=== PATIENT | female | born 1930 | race Caucasian/White ===

== ENCOUNTER 2016-10-09 10:07 | Emergency (ER) | payer MEDICARE ==
[~2016-10-09] VITALS: Ht 162.5 cm; Wt 74.8 kg
[~2016-10-09 10:07] MED LIST: ATENOLOL100 M1 PO; BP MED PO; CHOLESTEROL MED PO; CIPROFLOXACIN500 MG PO; DOESN'T KNOW NAMES PO; EC NAPROSYN500 MG PO; HYDROCODONE-IB1 EACH PO; LEVOTHYROXINE0.05 MG PO; LISINOPRIL HCTZ1 TAB PO; LOVASTATIN20 MG PO; MEDROL DOSEPAK4 MG PO; NAPROSYN500 MG PO; PERCOCET 325 MG1 TA2 PO; PRINIVIL20 M1 PO; PYRIDIUM200 MG PO; ULTRAM50 MG PO; XANAX0.5 MG PO; ZOFRAN ODT4 MG SL
[2016-10-09 10:21] VITALS: BP 160/73
== END 2016-10-09 14:09 | disposition home or self-care (01) ==
LOC: ED 10:07
DX: M25.552 Pain in left hip (principal); I10 Essential (primary) hypertension; G89.29 Other chronic pain; M48.00 Spinal stenosis, site unspecified; Z90.710 Acquired absence of both cervix and uterus; Z98.890 Other specified postprocedural states; Z79.899 Other long term (current) drug therapy; W19.XXXA Unspecified fall, initial encounter; Y93.89 Activity, other specified; Y92.89 Other specified places as the place of occurrence of the external cause; Y99.9 Unspecified external cause status

== ENCOUNTER 2017-07-25 11:44 | Emergency (ER) | payer MEDICARE ==
[~2017-07-25] VITALS: Ht 152.4 cm; Wt 76.2 kg
[2017-07-25 12:04] LABS: BASO # 0.1 10*3/uL (0.0-0.1); BASO % 0.6 % (0.0-1.0); EOS # 0.4 10*3/uL (0.0-0.4); EOS % 4.1 % (1.0-4.0); HEMATOCRIT 41.8 % (37.0-47.0); HEMOGLOBIN 14.2 g/dl (12.0-16.0); LYMPH # 4.1 10*3/uL (1.3-4.4); LYMPH % 48.2 % (27.0-41.0); MEAN CELL VOLUME 96.1 fl (81.0-99.0); MEAN CORPUSCULAR HGB 32.6 pg (27.0-31.0); MONO # 0.7 10*3/uL (0.1-1.0); MONO % 7.9 % (3.0-9.0); NEUT # 3.3 10*3/uL (2.3-7.9); PLATELET COUNT AUTOMATED 180 10*3/uL (130-400); RED BLOOD COUNT 4.35 10*6/uL (4.10-5.10); RED CELL DISTRI WIDTH 13.2 % (0-14.5); WHITE BLOOD COUNT 8.5 10*3/uL (4.8-10.8)
[2017-07-25 12:15] LABS: BUN 25 mg/dl (7-24); CHLORIDE 105 mmol/L (98-107); CREATININE 0.92 mg/dL (0.55-1.02); POTASSIUM 3.6 mmol/L (3.5-5.1); SODIUM 141 mmol/L (136-145)
[2017-07-25 12:19] LABS: ACT PARTIAL THROMBO TIME 23.8 SECONDS (20.8-31.5)
[2017-07-25 12:30] LABS: BILIRUBIN NEGATIVE (NEGATIVE); BLOOD 3+ (NEGATIVE); CLARITY CLOUDY (CLEAR); COLOR RED (YELLOW); GLUCOSE NEGATIVE (NEGATIVE); KETONE 1+ (NEGATIVE); NITRITE POSITIVE (NEGATIVE); PH 6.5 (5.0-9.0)
[2017-07-25 12:34] LABS: LEUKO ESTERASE 1+ (NEGATIVE)
[2017-07-25 12:42] LABS: BACTERIA 1+; RBC TNTC rbc/hpf (0-2); WBC 31-40 wbc/hpf (0-5)
[2017-07-25 13:34] VITALS: BP 146/86
== END 2017-07-25 13:33 | disposition home or self-care (01) ==
LOC: ED 11:44
PROVIDERS: Emergency Medicine
DX: R31.0 Gross hematuria (principal); G89.29 Other chronic pain; Z79.899 Other long term (current) drug therapy

== ENCOUNTER → 2017-09-14 | Outpatient (CLI) | payer MEDICARE ==
[2017-09-14 11:20] LABS: BILIRUBIN NEGATIVE (NEGATIVE); BLOOD 3+ (NEGATIVE); CLARITY SL CLOUDY (CLEAR); COLOR YELLOW (YELLOW); GLUCOSE NEGATIVE (NEGATIVE); KETONE NEGATIVE (NEGATIVE); LEUKO ESTERASE 3+ (NEGATIVE); NITRITE POSITIVE (NEGATIVE); PH 6.5 (5.0-9.0); UROBILINOGEN 0.2 E.U./dl (0.2-1.0)
[2017-09-14 11:28] LABS: BACTERIA 2+; RBC TNTC rbc/hpf (0-2); WBC TNTC wbc/hpf (0-5)
== END | disposition home or self-care (01) ==
LOC: LAB 10:35
PROVIDERS: Urology
DX: N39.0 Urinary tract infection, site not specified (principal)

== ENCOUNTER → 2017-09-28 | Outpatient (CLI) | payer MEDICARE | END | disposition home or self-care (01) | LOC: LAB 12:51 | DX: N39.0 Urinary tract infection, site not specified (principal) ==

== ENCOUNTER 2018-03-26 16:26 | Inpatient (IN) | payer MEDICARE ==
[~2018-03-26] VITALS: Ht 162.5 cm; Wt 73.1 kg
--- NOTE | ~2018-03-26 | DS ---
[place], [place] DISCHARGE SUMMARY NAME: NEIL TUTTLE UNIT #: [id number] ROOM: 508 DOCTOR: MINISTERIO CHRISTY MD BIRTHDATE: [birth year] DOS: 03/29/2018 DIAGNOSES: 1. Dizziness with a fall. 2. Abdominal pain with dysuria. Urine culture and blood cultures were negative. 3. Bladder cancer, on chemo. 4. Benign hypertension, poorly controlled. 5. Hyponatremia, possibly diuretic induced. 6. Spinal stenosis with radiculopathy. 7. Gastroesophageal reflux disease. 8. Mixed hyperlipidemia. DISCHARGE MEDICATIONS: Atenolol 100 mg daily, lisinopril 40 daily, Ceftin 250 twice daily for 5 days, hydroxyzine 25 t.i.d., lovastatin 20 daily, levothyroxine 50 mcg daily, aspirin 81 daily. HOSPITAL COURSE: The patient is 87-year-old. She was walking across a parking lot to her apartment when she became dizzy and just fell down. She had a hard time going back into her room, but she also started complaining of severe abdominal pain and dysuria and was brought to the Emergency Room. After being brought to the Emergency Room, she had a CT of the head which was unremarkable, except for small vessel disease of the brain. The patient had a urinalysis, which was refluxed for culture. Troponin was done, which was all negative. The patient had a consultation with Dr. Copeland and he advised changes in antihypertensives. Echocardiogram was ordered, showed normal LV function. She was hyponatremic and slow IV hydration was given. This was most likely from the diuretics that she was on, also on IV antibiotics for possible UTI. Blood cultures and urine cultures have come back negative. CT of the abdomen and pelvis also shows no evidence of any abnormality, so the plan therefore is to discharge her to home today. DISCHARGE MEDICATIONS: Will be as above. The possibility is that the atenolol may have made her bradycardic and so the dosage has been cut back and hydrochlorothiazide has been discontinued because of the hyponatremia. [place], [place] DISCHARGE SUMMARY NAME: NEIL TUTTLE UNIT #: [id number] ROOM: 508 DOCTOR: MINISTERIO CHRISTY MD BIRTHDATE: [birth year] MINISTERIO CHRISTY MD CM:YOEL [id number] MINISTERIO CHRISTY MD 03/29/18 1144 interface
--- NOTE | ~2018-03-26 | PR ---
[place], [place] PROGRESS NOTE NAME: NEIL TUTTLE [facility] #: [id number] UNIT #: [id number] ROOM: 508 DOCTOR: MINISTERIO CHRISTY MD BIRTHDATE: [birth year] DOS: SUBJECTIVE: The patient is doing fine without any complaints today. Abdominal pain is completely resolved. OBJECTIVE: VITAL SIGNS: Blood pressure is 149/51, pulse is 64, respirations 21, temperature 97.9. LUNGS: Clear. HEART: Regular. ABDOMEN: Soft, nontender. EXTREMITIES: Without any edema. Urine culture was negative. CT of the abdomen and pelvis was also negative. Blood cultures also showed no bacterial growth. ASSESSMENT AND PLAN: 1. The patient admitted with dizziness and a fall at home. This most likely was bradycardia from atenolol. The dosage has been cut down. 2. Hyponatremia, possibly from hydrochlorothiazide, which has been discontinued. Echocardiogram showed normal LV function. Dr. Copeland saw the patient and advised adjustment in antihypertensives. 3. Abdominal pain with dysuria. Urine culture was negative. CT scan of the abdomen was negative. Plan is to discharge her to home today. MINISTERIO CHRISTY MD CM:PNTRANS [phone] MINISTERIO CHRISTY MD 03/30/18 0333 interface
--- NOTE | ~2018-03-26 | EKG ---
[place], [place] ELECTROCARDIOGRAM REPORT NAME: NEIL TUTTLE UNIT #: [id number] ROOM: 508 DOCTOR: CHAVO DRAFT REPORT BIRTHDATE: [birth year] [facility] Test Date: 2018-03-26 Test Time: 17:22:20 Pat Name: NEIL TUTTLE Department: Room: 508 Gender: F Hearing Aid Repairer: Birgit Montano : 1930 Requested By: JASWANT BREWER Order Number: [id number] Reading MD: Chauncey Copeland MD Measurements Intervals [place] Rate: 59 P: 32 NE: 174 QRS: -10 QRSD: 102 T: 82 QT: 450 QTc: 446 Interpretive Statements Sinus rhythm LVH with secondary repolarization abnormality Inferior infarct, old Anterior Q waves, possibly due to LVH Electronically Signed On 03-27-2018 7:49:39 PST by Chauncey Copeland MD CM:EKGRPT:ELECTROCARDIOGRAM REPORT [id number] JASWANT TONY DRAFT REPORT JASWANT VAZQUEZ
--- NOTE | ~2018-03-26 | WRIGHTHP ---
[place], [place] PATIENT HISTORY AND PHYSICAL EXAM NAME: NEIL TUTTLE UNIT #: [id number] ROOM: 508 DOCTOR: MINISTERIO CHRISTY MD BIRTHDATE: [birth year] DOS: HISTORY OF PRESENT ILLNESS: The patient is very well known to us. She has underlying bladder cancer and she has been getting treated with BCG instillations. The patient complains of increasing pain in her suprapubic area with increasing dysuria and has been going on for more than a week and she has not received treatment recently, she decided to come into the Emergency Room after she had a fall. She says that she was so weak she just fell on the floor, did not become dizzy and lightheaded. Denied having any chest pains or palpitations. After being evaluated in the ER she was admitted. PAST MEDICAL HISTORY: Significant for 1. Chronic low back pain from spinal stenosis with radiculopathy. 2. Benign hypertension. 3. CA of the bladder. 4. Gastroesophageal reflux disease. 5. Mixed hyperlipidemia. MEDICATIONS: That she is currently on are aspirin 81 mg daily, atenolol 100 mg twice a day, hydroxyzine 25 t.i.d., levothyroxine 50 mcg daily, lisinopril/hydrochlorothiazide 1 tablet daily, lovastatin 20 daily, potassium 10 daily. SOCIAL HISTORY: Nonsmoker, does not use any alcohol. Lives at home alone. PHYSICAL EXAMINATION: GENERAL: She is awake and alert and oriented. VITAL SIGNS: Graphic trend shows a pressure of 132/70, pulse of 76, respirations 16. LUNGS: Diminished breath sounds. No wheezes, rales or rhonchi heard. HEART: Regular. ABDOMEN: Obese, soft, severe tenderness noted in the suprapubic area. EXTREMITIES: Without any edema. ASSESSMENT AND PLAN: 1. The patient who presents with abdominal pain, dysuria, most likely underlying UTI. The patient is placed on IV antibiotics and IV fluids. 2. Bladder cancer, on chemotherapy. She is currently on hold because of her symptoms. 3. Recent fall with no major injuries. The patient is ordered PT, OT consultation. [place], [place] PATIENT HISTORY AND PHYSICAL EXAM NAME: NEIL TUTTLE ACC #: [id number] UNIT #: [id number] ROOM: 508 DOCTOR: MINISTERIO CHRISTY MD BIRTHDATE: [birth year] MINISTERIO CHRISTY MD CM:HISPHYS:PATIENT HISTORY AND PHYSICAL EXAMINATION 8 MINISTERIO CHRISTY MD 03/27/18918 interface
--- NOTE | ~2018-03-26 | PR ---
[place], [place] PROGRESS NOTE NAME: NEIL TUTTLE UNIT #: [id number] ROOM: 508 DOCTOR: MINISTERIO CHRISTY MD BIRTHDATE: [birth year] DOS: 03/28/2018 SUBJECTIVE: The patient is about the same, does not have any new complaints. OBJECTIVE: VITAL SIGNS: Graphic trend shows pressure 159/67, pulse of 60, respirations 20, temperature 98.1. LUNGS: Clear. HEART: Regular. ABDOMEN: Obese, soft. EXTREMITIES: Without any edema. LABORATORY DATA: Blood culture shows no bacterial growth. Urine culture shows no bacterial growth. ASSESSMENT AND PLAN: 1. The patient presents with abdominal pain. A CT of the abdomen and pelvis will be ordered today. Urine culture and blood cultures are negative. 2. Fall with adult failure to thrive, most likely from bradycardia from antihypertensives. Medication adjustments have been made. 3. Hyponatremia. The patient is receiving IV fluids. Hydrochlorothiazide will be discontinued. MINISTERIO CHRISTY MD CM:PNTRANS [id number] MINISTERIO CHRISTY MD 03/28/18 1057 interface
--- NOTE | ~2018-03-26 | CON ---
[place], [place] REPORT OF CONSULTATION NAME: NEIL TUTTLE UNIT #: [id number] ROOM: 508 DOCTOR: CARLYN COOK MD BIRTHDATE: [birth year] DOS: 03/27/2018 CONSULTATION HISTORY OF PRESENT ILLNESS: The patient was consulted because of dizziness and she come in and the patient suddenly when she stood up, she felt fatigue and she fell, patient probably was orthostatic, hence we were consulted. No cardiac dysrhythmia noticed in the monitor. She denies any chest discomfort and denies any history of coronary artery disease. Hemodynamically, she is much more stable. She is not orthostatic at this point. PAST MEDICAL HISTORY: Significant for hypertension, carcinoma of the bladder, mixed hyperlipidemia. HOME MEDICATIONS: Aspirin, atenolol 100 mg twice a day, hydroxyzine, levothyroxine, lovastatin, lisinopril, and hydrochlorothiazide. REVIEW OF SYSTEMS: Complains of dizziness. CARDIOVASCULAR: No chest pain. GASTROINTESTINAL: No nausea, no vomiting. GENITOURINARY: No dysuria. NEUROLOGIC: She appears to be stable. GENERAL: She is alert, oriented x 3. VITAL SIGNS: Blood pressure is 130/70. LUNGS: Diminished air entry. HEART: Sounds are regular. ABDOMEN: Soft, nontender. NEUROLOGICAL: Stable. IMPRESSION: The patient had abdominal pain and dysuria being treated for UTI, also on antibiotic, history of bladder cancer, recent fall. PT, OT has been consulted. EKG shows sinus rhythm, left ventricular hypertrophy with old inferior infarct. RECOMMENDATIONS: The patient with a near syncopal episode, hypertension. The patient is on large doses of antihypertensives, very large dose of beta blockers. Her hemoglobin and hematocrit are within normal limits. Creatinine is 1.1, probably decrease the dosage to half to the beta blockers. Monitor orthostatic blood pressure. We will review the echocardiogram and we will follow up. [place], [place] REPORT OF CONSULTATION NAME: NEIL TUTTLE UNIT #: [id number] ROOM: 508 DOCTOR: CARLYN COOK MD BIRTHDATE: [birth year] CARLYN COOK MD CM:CONSTR:REPORT OF CONSULTATION 0705 03/28/18 0853 interface
[2018-03-26 16:36] VITALS: BP 170/51
[2018-03-26] MEDS ORDERED: VISTARIL25 M2 PO (16:42)
[2018-03-26 17:37] LABS: BASO % 0.5 % (0.0-1.0); EOS # 0.1 10*3/uL (0.0-0.4); EOS % 1.8 % (1.0-4.0); HEMATOCRIT 37.9 % (37.0-47.0); HEMOGLOBIN 13.1 g/dl (12.0-16.0); LYMPH # 3.1 10*3/uL (1.3-4.4); LYMPH % 40.6 % (27.0-41.0); MEAN CELL VOLUME 95.9 fl (81.0-99.0); MEAN CORPUSCULAR HGB 33.2 pg (27.0-31.0); MEAN CORPUSCULAR HGB CONC 34.6 g/dl (33.0-37.0); MEAN PLATELET VOLUME 10.1 fl (9.6-12.3); MONO # 0.5 10*3/uL (0.1-1.0); MONO % 6.3 % (3.0-9.0); NEUT # 3.9 10*3/uL (2.3-7.9); NEUT % 50.5 % (47.0-73.0); PLATELET COUNT AUTOMATED 172 10*3/uL (130-400); RED BLOOD COUNT 3.95 10*6/uL (4.10-5.10); WHITE BLOOD COUNT 7.7 10*3/uL (4.8-10.8)
[2018-03-26 17:46] LABS: ACT PARTIAL THROMBO TIME 25.3 SECONDS (20.8-31.5)
[2018-03-26 17:54] LABS: ALBUMIN 3.5 gm/dl (3.1-4.5); ALKALINE PHOSPHATASE 76 U/L (45-117); BUN 19 mg/dl (7-24); CHLORIDE 99 mmol/L (98-107); CREATININE 1.38 mg/dL (0.55-1.02); LIPASE 184 U/L (73-393); POTASSIUM 4.1 mmol/L (3.5-5.1); SGOT/AST 25 IU/L (3-35); SGPT/ALT 22 U/L (12-78); SODIUM 130 mmol/L (136-145); TOTAL PROTEIN 6.4 gm/dL (6.4-8.2)
[2018-03-26 17:57] LABS: TROPONIN I < 0.015 ng/ml (<0.045)
[2018-03-26 19:22] LABS: BILIRUBIN NEGATIVE (NEGATIVE); BLOOD 1+ (NEGATIVE); CLARITY SL CLOUDY (CLEAR); COLOR YELLOW (YELLOW); GLUCOSE TRACE (NEGATIVE); KETONE NEGATIVE (NEGATIVE); LEUKO ESTERASE 1+ (NEGATIVE); NITRITE POSITIVE (NEGATIVE); SPECIFIC GRAVITY >= 1.030 (1.005-1.030)
[2018-03-26 19:33] LABS: BACTERIA 1+; EPITHELIAL CELLS TNTC; WBC TNTC wbc/hpf (0-5)
[2018-03-26 19:37] VITALS: BP 178/73
[2018-03-26 21:00] VITALS: BP 146/71
[2018-03-26] MEDS ORDERED: POTASSIUM CHLO10 ME5 PO (21:42)
[2018-03-26] MEDS ORDERED: LOVASTATIN20 MG PO (21:45)
[2018-03-26] MEDS ORDERED: LEVOTHYROXINE50 MCG PO (21:45)
[2018-03-26] MEDS ORDERED: ASPIRIN ADULT L81 M2 PO (21:47)
[2018-03-27 00:25] VITALS: BP 148/70
[2018-03-27 03:58] LABS: BASO % 0.5 % (0.0-1.0); EOS # 0.2 10*3/uL (0.0-0.4); EOS % 2.9 % (1.0-4.0); HEMATOCRIT 37.1 % (37.0-47.0); HEMOGLOBIN 12.8 g/dl (12.0-16.0); LYMPH # 3.4 10*3/uL (1.3-4.4); LYMPH % 42.5 % (27.0-41.0); MEAN CELL VOLUME 95.4 fl (81.0-99.0); MEAN CORPUSCULAR HGB 32.9 pg (27.0-31.0); MEAN CORPUSCULAR HGB CONC 34.5 g/dl (33.0-37.0); MEAN PLATELET VOLUME 9.9 fl (9.6-12.3); MONO # 0.6 10*3/uL (0.1-1.0); MONO % 6.9 % (3.0-9.0); NEUT # 3.7 10*3/uL (2.3-7.9); NEUT % 46.9 % (47.0-73.0); PLATELET COUNT AUTOMATED 149 10*3/uL (130-400); RED BLOOD COUNT 3.89 10*6/uL (4.10-5.10)
[2018-03-27 04:13] LABS: ALBUMIN 3.3 gm/dl (3.1-4.5); CREATININE 1.12 mg/dL (0.55-1.02); POTASSIUM 3.9 mmol/L (3.5-5.1); TOTAL PROTEIN 6.3 gm/dL (6.4-8.2)
[2018-03-27 08:00] VITALS: BP 164/70
[2018-03-27 12:00] VITALS: BP 90/66
[2018-03-27 16:00] VITALS: BP 113/54
[2018-03-27 20:00] VITALS: BP 111/51
[2018-03-28] VITALS: BP 159/67
[2018-03-28 08:00] VITALS: BP 130/80
[2018-03-28 12:00] VITALS: BP 149/76
[2018-03-28 16:00] VITALS: BP 126/60
[2018-03-28 20:00] VITALS: BP 145/72
[2018-03-29] VITALS: BP 149/51
[2018-03-29 08:00] VITALS: BP 132/82; BP 158/87
[2018-03-29] MEDS ORDERED: CEFUROXIME AXE250 MG PO (08:52)
[2018-03-29] MEDS ORDERED: ATENOLOL50 M1 PO (08:52)
[2018-03-29] MEDS ORDERED: LISINOPRIL20 MG PO (08:52)
== END 2018-03-29 11:11 | disposition home or self-care (01) | DRG 690 ==
LOC: ED 16:26 → 5E 19:54 → EDHOLD 19:54 → 5E 20:10
PROVIDERS: Internal Medicine; Physician Assistant
DX: N30.01 Acute cystitis with hematuria (principal); E87.1 Hypo-osmolality and hyponatremia; C67.9 Malignant neoplasm of bladder, unspecified; M48.00 Spinal stenosis, site unspecified; K21.9 Gastro-esophageal reflux disease without esophagitis; M54.10 Radiculopathy, site unspecified; E78.2 Mixed hyperlipidemia; R42 Dizziness and giddiness; R62.7 Adult failure to thrive; I11.9 Hypertensive heart disease without heart failure; F41.9 Anxiety disorder, unspecified; T50.2X5A Adverse effect of carbonic-anhydrase inhibitors, benzothiadiazides and other diuretics, initial encounter; Y92.89 Other specified places as the place of occurrence of the external cause; Z92.21 Personal history of antineoplastic chemotherapy; Z82.3 Family history of stroke; Z82.49 Family history of ischemic heart disease and other diseases of the circulatory system; Z90.710 Acquired absence of both cervix and uterus

== ENCOUNTER 2018-04-11 13:29 | Inpatient (IN) | payer MEDICARE ==
[~2018-04-11] VITALS: Ht 162.5 cm; Wt 73.9 kg
--- NOTE | ~2018-04-11 | PR ---
[place], [place] PROGRESS NOTE NAME: NEIL TUTTLE [facility] #: [id number] UNIT #: [id number] ROOM: 422 DOCTOR: MINISTERIO CHRISTY MD BIRTHDATE: [birth year] DOS: SUBJECTIVE: The patient is feeling good, does not have any new complaints. She does not have any shortness of breath. PHYSICAL EXAMINATION: VITAL SIGNS: Pressure is 122/58, pulse of 90, respirations 18, temperature 97.8. LUNGS: Clear. HEART: Irregular. ABDOMEN: Obese, soft. EXTREMITIES: Without any edema. LABORATORY DATA: Urine culture, no bacterial growth. Chest x-ray continues to show some mild CHF. ASSESSMENT AND PLAN: 1. Acute diastolic congestive heart failure. Improvement with diuretics. The patient will have an exercise oximetry this morning. 2. Benign hypertension, controlled. 3. Atrial fibrillation, on long-term use of anticoagulants, rate is controlled. MINISTERIO CHRISTY MD CM:PNTRANS 0 [phone] MINISTERIO CHRISTY MD 04/14/18 1722 interface
--- NOTE | ~2018-04-11 | EKG ---
[place], [place] ELECTROCARDIOGRAM REPORT NAME: NEIL TUTTLE UNIT #: [id number] ROOM: 422 DOCTOR: EPIPHANY DRAFT REPORT BIRTHDATE: [birth year] [facility] Test Date: 2018-04-11 Test Time: 23:46:34 Pat Name: NEIL TUTTLE Department: Room: 422 1 Gender: F Field Servicer: Madie Kwok : 1930 Requested By: MINISTERIO CHRISTY Order Number: [id number] Reading MD: Sharda De MD Measurements Intervals [place] Rate: 96 P: [place]: QRS: -9 QRSD: 93 T: -5 QT: 424 QTc: 536 Interpretive Statements Atrial fibrillation Inferior infarct, old Anterolateral infarct, age indeterminate Prolonged QT interval Compared to ECG 03/26/2018 17:22:20 Prolonged QT interval now present Sinus rhythm no longer present Myocardial infarct finding still present Electronically Signed On 04-12-2018 7:35:28 PST by Sharda De MD CM:EKGRPT:ELECTROCARDIOGRAM REPORT [id number] MINISTERIO CHRISTY MD EPIPHANY DRAFT REPORT MINISTERIO CHRISTY MD
--- NOTE | ~2018-04-11 | PR ---
[place], [place] PROGRESS NOTE NAME: NEIL TUTTLE [facility] #: [id number] UNIT #: [id number] ROOM: 422 DOCTOR: MINISTERIO CHRISTY MD BIRTHDATE: [birth year] DOS: SUBJECTIVE: The patient is feeling good, does not have any complaints at all. OBJECTIVE: VITAL SIGNS: Blood pressure is 103/59, pulse of 78, respirations 18, temperature 97.8. LUNGS: Diminished breath sounds, clear. HEART: Irregular, heart rate controlled. ABDOMEN: Obese, soft, nontender. EXTREMITIES: Without any edema. LABORATORY DATA: None available today. ASSESSMENT AND PLAN: 1. Atrial fibrillation, controlled, on long-term use of anticoagulants. 2. Mild congestive heart failure, diastolic, much improved. Chest x-ray, routine labs are pending. The patient is stable and can be discharged to home with visiting nurses. 3. Benign hypertension. Pressures are much better controlled. We will cut back on some of her home medications. MINISTERIO CHRISTY MD CM:PNTRANS [id number] MINISTERIO CHRISTY MD 04/15/18 1438 interface
--- NOTE | ~2018-04-11 | WRIGHTHP ---
[place], [place] PATIENT HISTORY AND PHYSICAL EXAM NAME: NEIL TUTTLE [facility] #: [id number] UNIT #: [id number] ROOM: 422 DOCTOR: MINISTERIO CHRISTY MD BIRTHDATE: [birth year] DOS: HISTORY OF PRESENT ILLNESS: The patient is 87 years old, well known to us, states that she has been short of breath for the last 2 days and night, unable to sleep at night because she had to sit up to sleep. She also has noticed some increased leg swelling. Visiting nurses came in yesterday. Her saturations were okay, but she was noted to have increasing shortness of breath. Lasix was called in, but the patient decided to come into the Emergency Room, where she was admitted after diagnosis of congestive heart failure was made. She denies having any chest pains or palpitations, does not have any fever or chills. She went into atrial fibrillation during the night, heart rate in the low 100s. This morning, the patient feels good, does not have any new complaints. She has been diuresing well. PAST MEDICAL HISTORY: Significant for 1. Recent hospitalization in March with dizziness and a fall. 2. CA bladder, on chemotherapy. 3. Benign hypertension. 4. Hyponatremia from hydrochlorothiazide, which was discontinued. 5. Spinal stenosis with radiculopathy and neurogenic claudication, chronic back pain. 6. Gastroesophageal reflux disease. 7. Hyperlipidemia. MEDICATIONS: She was supposed to be on atenolol 100 daily, lisinopril 40 daily, hydroxyzine 25 t.i.d., lovastatin 20 daily, aspirin 81 daily, levothyroxine 50 mcg daily. SOCIAL HISTORY: Nonsmoker, does not use any alcohol. PHYSICAL EXAMINATION: GENERAL: She is awake and alert and oriented, in mild respiratory distress at the time of admission. This morning, she does not seem to have any shortness of breath. VITAL SIGNS: Blood pressure is 128/66, pulse of 90, respirations 18, temperature 97.8. LUNGS: Clear. HEART: Irregular. ABDOMEN: Obese, soft, nontender. EXTREMITIES: Without any edema. LABORATORY DATA: Chest x-ray shows congestive heart failure. Lactic acid is normal. WBC count is 8.3, hemoglobin 11.2, platelets 143. Comprehensive glucose 97, BUN 24, creatinine 0.7, sodium 143, potassium 3.9, chloride 109. Her urinalysis reflexed for culture. ASSESSMENT AND PLAN: 1. The patient who presents with increasing shortness of breath with acute congestive heart failure. She has diastolic congestive heart failure. The patient is placed on IV diuretics. [place], [place] PATIENT HISTORY AND PHYSICAL EXAM NAME: NEIL TUTTLE UNIT #: [id number] ROOM: [facility] DOCTOR: MINISTERIO CHRISTY MD BIRTHDATE: [birth year] 2. Benign hypertension, controlled. 3. Atrial fibrillation, new onset. The patient is placed on Lovenox during the night. We will convert to Eliquis this morning. Heart rate is under control. Cardiology consultation obtained. Echocardiogram was done last month, so we are not repeating it. 4. Recent dysuria with negative urine cultures. Urine will be reflexed. IV Rocephin will be started. MINISTERIO CHRISTY MD CM:HISPHYS:PATIENT HISTORY AND PHYSICAL EXAMINATION [phone] MINISTERIO CHRISTY MD 04/12/18 0948 interface
--- NOTE | ~2018-04-11 | PR ---
[place], [place] PROGRESS NOTE [id number] #: [id number] ROOM: 422 DOCTOR: KERRIE BEAL MD BIRTHDATE: [birth year] DOS: SUBJECTIVE: She feels well. She did not have any breathing difficulty last night and has not had any palpitation or dizziness. Her appetite is fine. Mood is good. PHYSICAL EXAMINATION: GENERAL: Reveals the patient is very pleasant, alert. She is in a recliner, sitting comfortably. She is not tachypneic. Her complexion is fine. VITAL SIGNS: Temperature is normal. Pulse is irregular at about 88 beats per minute. Blood pressure 112/60. NECK: Normal JVP. LUNGS: Clear. EXTREMITIES: No edema in the lower extremity. IMPRESSION: 1. Atrial fibrillation, which is a new diagnosis. Rate is now controlled. She is on Eliquis and atenolol. 2. Possible systolic heart failure is well compensated. RECOMMENDATIONS: She should be on chronic anticoagulation, i.e. Eliquis should be continued and I would like to see her in the office in about 3-4 weeks and if she is in normal sinus rhythm that would be fine. If not, then an antiarrhythmic drug may be added and if that does not revert her to normal sinus rhythm, then electrical cardioversion will be attempted. KERRIE BEAL MD CM:PNTRANS [id number] [id number] KERRIE BEAL MD 04/13/18 1523 interface
--- NOTE | ~2018-04-11 | CON ---
[place], [place] REPORT OF CONSULTATION [id number] UN[facility] #: [id number] ROOM: 422 DOCTOR: KERRIE BEAL MD BIRTHDATE: [birth year] DOS: 04/12/2018 HISTORY OF PRESENT ILLNESS: This is an 87-year-old -[place] lady with a history of urinary bladder cancer and has been getting chemotherapy. She had bleeding from the bladder only once. She has essential hypertension and has hyperlipidemia, GERD, spinal stenosis, chronic back pain. She has never had a heart attack, heart failure, stroke, COPD and has not had any rhythm disorder of the heart. She was in the hospital last month and had normal sinus rhythm. She was admitted to the hospital yesterday because she had difficulty breathing the night before. She had to sit up because had tough time taking a breath in. She did not have any palpitation at that time, but she had some chest heaviness and epigastric heaviness when she came to the Emergency Department. Once the oxygen was given to her, this eased up. She does not smoke nor does she drink alcoholic beverages. She lives at home alone and she has frequent company. I was asked to see her because of atrial fibrillation and pulmonary edema. HOME MEDICATIONS: Include atenolol 100 daily, lisinopril 40 daily, hydroxyzine 25 mg t.i.d., lovastatin 20 daily, aspirin 81 daily and levothyroxine 50 mcg daily. PHYSICAL EXAMINATION: GENERAL: This is a patient who is alert, oriented. She is comfortable. She is not anemic, not jaundiced. There is no thyromegaly or finger clubbing. VITAL SIGNS: Pulse is irregular at 104 beats per minute, blood pressure 118/78. NECK: JVP is increased, positive AJR and no carotid bruit is present. CARDIOVASCULAR: There is no cardiomegaly. There hardly any murmur was appreciated at the apex. EXTREMITIES: She had trace edema in the lower extremities. RESPIRATORY: Breath sounds are fairly decent with very few adventitious sounds. DIAGNOSTIC STUDIES: An ECG yesterday had shown sinus rhythm. Second ECG showed atrial fibrillation and an intraventricular conduction defect. T-waves are inverted in V1 to V4 that is suggestive of anterior wall ischemia. Chest x-ray demonstrates mild pulmonary edema, congestion, but normal heart size. Hemoglobin 10.6 g/dL. LABORATORY DATA: BUN is 24, creatinine 0.87. Liver enzymes are normal. Troponin on admission was 0.06. IMPRESSION: 1. This patient has acute heart failure, probably diastolic caused by atrial fibrillation. However, there may be a systolic component as well. She is on high dose of atenolol, which should be continued to control the ventricular rate. If this is not adequately tamed, then and the small dose of digoxin may be necessary. Atenolol dose can be increased. [place], [place] REPORT OF CONSULTATION NAME: NEIL TUTTLE UNIT #: [id number] ROOM: 422 DOCTOR: KERRIE BEAL MD BIRTHDATE: [birth year] 2. Atrial fibrillation is new and she is being placed on Eliquis, which should be continued. 3. Bladder cancer, which is asymptomatic. She had an echocardiogram 2 weeks ago, which I reviewed. It showed normal LV systolic function, LVH and [id number] mitral regurgitation and moderate pulmonary hypertension. I do not think we need to repeat an echocardiogram; however, another troponin level has been ordered just to make sure that she has not had an acute myocardial infarction. Because the EKG shows a T-wave inversion in anterior chest leads, I think at this stage, we should probably empirically treat her as having significant coronary artery stenosis. She is already on a beta lara and statin drug. I think a small dose of Imdur will be added. I thank for this consult. KERRIE BEAL MD CM:CONSTR:REPORT OF CONSULTATION 1125 04/13/18 0024 interface
--- NOTE | ~2018-04-11 | DS ---
[place], [place] DISCHARGE SUMMARY NAME: NEIL TUTTLE UNIT #: [id number] ROOM: 422 DOCTOR: MINISTERIO CHRISTY MD BIRTHDATE: [birth year] DOS: 04/15/2018 DIAGNOSES: 1. Acute diastolic congestive heart failure. 2. Atrial fibrillation, new onset. 3. Benign hypertension, poorly controlled, but much better now. 4. Cancer of bladder. 5. Spinal stenosis with radiculopathy. 6. Mixed hyperlipidemia. 7. Gastroesophageal reflux disease. MEDICATIONS: She is on are clonidine 0.1 mg at bedtime, isosorbide 30 daily, Lasix 20 daily, hydroxyzine 25 t.i.d. p.r.n. for anxiety, lovastatin 20 daily, atenolol 50 daily, lisinopril 20 daily, Eliquis 5 mg twice a day. HOSPITAL COURSE: This patient is 87 years old, very well known to us. The patient comes in with complaints of difficulty breathing. Please refer to H and P for details. The patient was admitted with diagnosis of acute CHF and during the night went into AFib. Heart rate was controlled. The patient at that time was started on Lovenox and switched to Eliquis. The patient's heart rate has been controlled and CHF seems to be resolving slowly. Her leg edema has improved. She is no longer short of breath. Her exercise oximetry done did not show any desaturation. She was seen by Dr. De in the hospital and agreed on the treatment plan. Had an echocardiogram about a month ago, which showed normal LV function, so this was not repeated. The patient this morning is stable and is not having any complaints. The plan is to discharge her to home with visiting nurses. She was advised SNF placement, but has refused. The question that we have here today is the Eliquis. Eliquis was called into the pharmacy, but I am not sure whether her insurance will pay for it or whether she will be able to afford it. If not, then we will switch to Xarelto, which we can supply from the hospital for a month. [place], [place] DISCHARGE SUMMARY NAME: NEIL TUTTLE UNIT #: [id number] ROOM: 422 DOCTOR: MINISTERIO CHRISTY MD BIRTHDATE: [birth year] MINISTERIO CHRISTY MD CM:YOEL 0756 1025 MINISTERIO CHRISTY MD 04/15/18 1025 interface
--- NOTE | ~2018-04-11 | EKG ---
[place], [place] ELECTROCARDIOGRAM REPORT NAME: NEIL TUTTLE UNIT #: [id number] ROOM: 422 DOCTOR: CHAVO DRAFT REPORT BIRTHDATE: [birth year] [facility] Test Date: 2018-04-11 Test Time: 13:31:39 Pat Name: NEIL TUTTLE Department: Room: [facility] Gender: F [place] Cutting Machine Operator: : 1930 Requested By: SHAY PABON Order Number: [id number] Reading MD: Hieu Melo MD Measurements Intervals [place] Rate: 66 P: 37 [place]: 183 QRS: 14 QRSD: 91 T: 37 QT: 434 QTc: 455 Interpretive Statements Sinus rhythm Poor precordial R-wave progression LEFT VENTRICULAR HYPERTROPHY with secondary ST-T changes Minimal ST depression, lateral leads Compared to ECG 03/26/2018 17:22:20 Q waves no longer present Myocardial infarct finding still present Electronically Signed On 04-11-2018 21:21:19 PST by Hieu Melo MD CM:EKGRPT:ELECTROCARDIOGRAM REPORT 1331 20 SHAY APPIAH DRAFT REPORT SHAY PABON DO
--- NOTE | ~2018-04-11 | PR ---
[place], [place] PROGRESS NOTE [id number] UN[facility] #: [id number] ROOM: 422 DOCTOR: MINISTERIO CHRISTY MD BIRTHDATE: [birth year] DOS: SUBJECTIVE: The patient is feeling good, does not have any complaints. Shortness of breath has improved. OBJECTIVE: VITAL SIGNS: Graphic trend shows pressure of 142/101, pulse of 94, respirations 18, temperature 98.0. LUNGS: Clear. HEART: Irregular. ABDOMEN: Obese, soft. EXTREMITIES: Without any edema. LABORATORY DATA: Blood cultures negative. Urine culture negative. WBC count is 8.7, hemoglobin 10.4, hematocrit 31.4, platelets 189. BMP: Glucose 122, BUN 35, creatinine 0.91, sodium 142, potassium 3.7, chloride 105, bicarbonate 26. ASSESSMENT AND PLAN: 1. Acute diastolic congestive heart failure, resolving. Chest x-ray will be ordered, just to make sure it is clearing. Clinically, the patient is better. 2. Benign hypertension, poorly controlled. Readjust medications. 3. New-onset atrial fibrillation, rate is controlled on long-term use of anticoagulants. 4. Recent urinary tract infection which is cleared. We will discontinue antibiotics. 5. Adult failure to thrive. The patient refuses to go to rehabilitation. We will plan to discharge in the morning if chest x-ray is better ____. MINISTERIO CHRISTY MD CM:PNTRANS [phone] MINISTERIO CHRISTY MD 04/13/18 1338 interface
[~2018-04-11 13:29] MED LIST changes: +ASPIRIN ADULT L81 M2 PO; +ATENOLOL50 M1 PO; +CEFUROXIME AXE250 MG PO; +LEVOTHYROXINE50 MCG PO; +LISINOPRIL20 MG PO; +POTASSIUM CHLO10 ME5 PO; +VISTARIL25 M2 PO
[2018-04-11 13:36] VITALS: BP 184/82
[2018-04-11 14:43] LABS: BASO % 0.5 % (0.0-1.0); EOS # 0.2 10*3/uL (0.0-0.4); EOS % 2.2 % (1.0-4.0); HEMATOCRIT 34.1 % (37.0-47.0); HEMOGLOBIN 11.2 g/dl (12.0-16.0); LYMPH # 2.8 10*3/uL (1.3-4.4); LYMPH % 33.9 % (27.0-41.0); MEAN CELL VOLUME 100.3 fl (81.0-99.0); MEAN CORPUSCULAR HGB 32.9 pg (27.0-31.0); MEAN CORPUSCULAR HGB CONC 32.8 g/dl (33.0-37.0); MEAN PLATELET VOLUME 10.8 fl (9.6-12.3); MONO # 0.8 10*3/uL (0.1-1.0); MONO % 9.8 % (3.0-9.0); NEUT # 4.4 10*3/uL (2.3-7.9); NEUT % 53.4 % (47.0-73.0); PLATELET COUNT AUTOMATED 143 10*3/uL (130-400); RED CELL DISTRI WIDTH 14.8 % (0-14.5); WHITE BLOOD COUNT 8.3 10*3/uL (4.8-10.8)
[2018-04-11 14:52] LABS: ACT PARTIAL THROMBO TIME 24.3 SECONDS (20.8-31.5)
[2018-04-11 15:00] LABS: ALBUMIN 3.2 gm/dl (3.1-4.5); ALKALINE PHOSPHATASE 85 U/L (45-117); BUN 24 mg/dl (7-24); CHLORIDE 109 mmol/L (98-107); CREATININE 0.87 mg/dL (0.55-1.02); LIPASE 130 U/L (73-393); POTASSIUM 3.9 mmol/L (3.5-5.1); SGOT/AST 25 IU/L (3-35); SGPT/ALT 23 U/L (12-78); SODIUM 143 mmol/L (136-145); TOTAL PROTEIN 6.2 gm/dL (6.4-8.2)
[2018-04-11 17:30] LABS: BILIRUBIN NEGATIVE (NEGATIVE); BLOOD 3+ (NEGATIVE); CLARITY SL CLOUDY (CLEAR); COLOR YELLOW (YELLOW); GLUCOSE NEGATIVE (NEGATIVE); KETONE 1+ (NEGATIVE); LEUKO ESTERASE 1+ (NEGATIVE); NITRITE NEGATIVE (NEGATIVE); UROBILINOGEN 0.2 E.U./dl (0.2-1.0)
[2018-04-11 17:34] LABS: BACTERIA 1+; RBC 0-2 rbc/hpf (0-2); WBC 21-30 wbc/hpf (0-5)
[2018-04-11 17:35] LABS: MUCOUS TRACE
[2018-04-11 20:00] VITALS: BP 145/64
[2018-04-12] VITALS: BP 128/66
[2018-04-12 06:45] LABS: HEMATOCRIT 31.1 % (37.0-47.0); HEMOGLOBIN 10.6 g/dl (12.0-16.0); LYMPH # 0.9 10*3/uL (1.3-4.4); LYMPH % 23.9 % (27.0-41.0); MEAN CELL VOLUME 99.4 fl (81.0-99.0); MEAN CORPUSCULAR HGB 33.9 pg (27.0-31.0); MEAN CORPUSCULAR HGB CONC 34.1 g/dl (33.0-37.0); MEAN PLATELET VOLUME 10.9 fl (9.6-12.3); MONO # 0.1 10*3/uL (0.1-1.0); MONO % 2.9 % (3.0-9.0); NEUT # 2.8 10*3/uL (2.3-7.9); NEUT % 72.7 % (47.0-73.0); PLATELET COUNT AUTOMATED 171 10*3/uL (130-400); RED BLOOD COUNT 3.13 10*6/uL (4.10-5.10); RED CELL DISTRI WIDTH 14.6 % (0-14.5); WHITE BLOOD COUNT 3.8 10*3/uL (4.8-10.8)
[2018-04-12 07:03] LABS: CREATININE 0.92 mg/dL (0.55-1.02)
[2018-04-12 10:22] VITALS: BP 118/78
[2018-04-12 12:00] VITALS: BP 135/67
[2018-04-12 16:00] VITALS: BP 126/90
[2018-04-12 20:00] VITALS: BP 130/90
[2018-04-13] VITALS: BP 142/100; BP 142/101
[2018-04-13 06:59] LABS: BASO % 0.1 % (0.0-1.0); HEMATOCRIT 31.4 % (37.0-47.0); HEMOGLOBIN 10.4 g/dl (12.0-16.0); LYMPH % 22.4 % (27.0-41.0); MEAN CELL VOLUME 100.6 fl (81.0-99.0); MEAN CORPUSCULAR HGB 33.3 pg (27.0-31.0); MEAN CORPUSCULAR HGB CONC 33.1 g/dl (33.0-37.0); MEAN PLATELET VOLUME 10.9 fl (9.6-12.3); MONO # 0.7 10*3/uL (0.1-1.0); MONO % 7.9 % (3.0-9.0); NEUT # 6.1 10*3/uL (2.3-7.9); NEUT % 69.3 % (47.0-73.0); PLATELET COUNT AUTOMATED 189 10*3/uL (130-400); RED BLOOD COUNT 3.12 10*6/uL (4.10-5.10); WHITE BLOOD COUNT 8.7 10*3/uL (4.8-10.8)
[2018-04-13 07:25] LABS: CHLORIDE 105 mmol/L (98-107); POTASSIUM 3.7 mmol/L (3.5-5.1); SODIUM 142 mmol/L (136-145)
[2018-04-13 07:26] LABS: BUN 35 mg/dl (7-24); CREATININE 0.91 mg/dL (0.55-1.02)
[2018-04-13 09:22] VITALS: BP 112/60
[2018-04-13 12:00] VITALS: BP 113/60
[2018-04-13 16:00] VITALS: BP 103/68
[2018-04-13 20:00] VITALS: BP 108/56
[2018-04-14] VITALS: BP 102/71
[2018-04-14 08:00] VITALS: BP 122/58
[2018-04-14 12:00] VITALS: BP 98/56
[2018-04-14 16:00] VITALS: BP 122/75
[2018-04-14 20:00] VITALS: BP 93/64; BP 98/60
[2018-04-15] VITALS: BP 103/59
[2018-04-15] MEDS ORDERED: CLONIDINE HCL0.2 MG PO (07:38)
[2018-04-15] MEDS ORDERED: IMDUR SA30 MG PO (07:38)
[2018-04-15] MEDS ORDERED: ELIQUIS5 M1 PO (07:38)
[2018-04-15] MEDS ORDERED: LASIX20 MG PO (07:48)
[2018-04-15] MEDS ORDERED: XARE15TA PO (07:58)
[2018-04-15 08:00] VITALS: BP 112/62
[2018-04-15 08:25] LABS: BUN 32 mg/dl (7-24); CHLORIDE 105 mmol/L (98-107); CREATININE 0.91 mg/dL (0.55-1.02); POTASSIUM 3.6 mmol/L (3.5-5.1); SODIUM 142 mmol/L (136-145)
== END 2018-04-15 11:59 | disposition home health service (06) | DRG 291 ==
LOC: ED 13:29 → EDHOLD 16:25 → 4E 16:25
PROVIDERS: Emergency Medicine; Internal Medicine
DX: I11.0 Hypertensive heart disease with heart failure (principal); J96.01 Acute respiratory failure with hypoxia; I50.31 Acute diastolic (congestive) heart failure; K21.9 Gastro-esophageal reflux disease without esophagitis; I48.91 Unspecified atrial fibrillation; R62.7 Adult failure to thrive; M48.00 Spinal stenosis, site unspecified; J44.9 Chronic obstructive pulmonary disease, unspecified; C67.9 Malignant neoplasm of bladder, unspecified; E78.2 Mixed hyperlipidemia; I27.20 Pulmonary hypertension, unspecified; I34.0 Nonrheumatic mitral (valve) insufficiency; Z98.891 History of uterine scar from previous surgery; Z79.01 Long term (current) use of anticoagulants; Z90.710 Acquired absence of both cervix and uterus; Z82.49 Family history of ischemic heart disease and other diseases of the circulatory system; Z82.3 Family history of stroke; Z80.9 Family history of malignant neoplasm, unspecified

== ENCOUNTER 2018-05-31 15:31 | Emergency (ER) | payer MEDICARE ==
[~2018-05-31] VITALS: Ht 162.5 cm; Wt 65.8 kg
[~2018-05-31 15:31] MED LIST changes: +CLONIDINE HCL0.2 MG PO; +ELIQUIS5 M1 PO; +IMDUR SA30 MG PO; +LASIX20 MG PO; +XARE15TA PO
[2018-05-31 17:21] LABS: BILIRUBIN 1+ (NEGATIVE); BLOOD 2+ (NEGATIVE); CLARITY CLOUDY (CLEAR); COLOR YELLOW (YELLOW); GLUCOSE NEGATIVE (NEGATIVE); KETONE TRACE (NEGATIVE); LEUKO ESTERASE 1+ (NEGATIVE); NITRITE POSITIVE (NEGATIVE); SPECIFIC GRAVITY 1.025 (1.005-1.030); UROBILINOGEN 0.2 E.U./dl (0.2-1.0)
[2018-05-31 17:36] LABS: BACTERIA 3+; RBC 41-50 rbc/hpf (0-2); WBC TNTC wbc/hpf (0-5)
[2018-05-31] MEDS ORDERED: CEFUROXIME AXE500 MG PO (18:05)
[2018-05-31] MEDS ORDERED: PYRIDIUM200 M1 PO (18:06)
[2018-07-25] MEDS ORDERED: [UNRECOGNIZED DRUG - OTHER] PO (11:06)
[2018-07-25] MEDS ORDERED: VITAMIN D250 MCG PO (11:09)
[2018-07-25] MEDS ORDERED: VITAMIN D5000 UNIT PO (11:10)
[2018-07-26] MEDS ORDERED: FUROSEMIDE20 M1 PO (07:37)
[2018-07-26] MEDS ORDERED: CEFUROXIME AXE250 MG PO (07:38)
== END 2018-05-31 18:12 | disposition home or self-care (01) ==
LOC: ED 15:31
PROVIDERS: Nurse Practitioner Family
DX: N39.0 Urinary tract infection, site not specified (principal); Z85.51 Personal history of malignant neoplasm of bladder

== ENCOUNTER 2018-06-21 00:33 | Inpatient (IN) | payer MEDICARE ==
[~2018-06-21] VITALS: Ht 152.4 cm; Wt 66.9 kg
[2018-06-21] VITALS (7 sets, daily range): BP systolic 142–166; BP diastolic 76–100
--- NOTE | ~2018-06-21 | PR ---
[place], [place] PROGRESS NOTE NAME[facility] [id number] UNIT #: [id number] ROOM: 509 DOCTOR: MINISTERIO CHRISTY MD BIRTHDATE: [birth year] DOS: 06/25/2018 SUBJECTIVE: The patient is sitting up in a chair, arguing with nursing staff. The patient does not want to take any medications, refused all her medicines yesterday. She is agitated. OBJECTIVE: VITAL SIGNS: Blood pressure is 109/52, pulse of 111, respirations 18 and temperature 98.7. LUNGS: Diminished breath sounds. HEART: Regular. ABDOMEN: Obese, soft. EXTREMITIES: Without any edema. ASSESSMENT AND PLAN: 1. Agitation, combination of metabolic encephalopathy versus Alzheimer's dementia. Exelon was added. Risperdal will be started today. 2. Adult failure to thrive, may need short-term placement. We will wait for social service to come tomorrow. 3. Hypokalemia. Supplementation will be ordered. 4. Urinary tract infection with Klebsiella pneumoniae. The patient is on p.o. antibiotics. The patient refused to place an IV. MINISTERIO CHRISTY MD CM:PNTRANS [phone] MINISTERIO CHRISTY MD 06/26/18 0340 interface
--- NOTE | ~2018-06-21 | PR ---
[place], [place] PROGRESS NOTE NAME: NEIL TUTTLE UNIT #: [id number] ROOM: 509 DOCTOR: KIM GARCIA MD BIRTHDATE: [birth year] DOS: 06/23/2018 SUBJECTIVE: The patient is starting to feel better, getting more oriented, still quite weak and working with physical therapy. Lives alone by herself at home. OBJECTIVE: VITAL SIGNS: Blood pressure 143/80, heart rate 96 beats per minute, breathing 18 times per minute, temperature 98 degrees Fahrenheit. GENERAL APPEARANCE: The patient is alert and oriented x 3, in no visible distress. Generalized weakness. HEENT AND NECK: Exam within normal limits. CARDIOVASCULAR SYSTEM: Heart rate is regular in rate and rhythm. S1 and S2 normally audible. LUNGS: Clear to auscultation. ABDOMEN: Soft, nontender. No obvious organomegaly. Bowel sounds are present. EXTREMITIES: Without significant cyanosis or edema. IMPRESSION: 1. Adult failure to thrive, generalized weakness, working with physical therapy. The patient lives by herself. 2. Urinary tract infection and metabolic encephalopathy with decreasing mental confusion with treatment with antibiotics. 3. Urinary tract infection, being treated with antibiotics, clinically improving. Blood cultures have been negative. Urine culture is growing Klebsiella pneumoniae sensitive to all antibiotics. 4. Coronary artery disease of the [place] vessels without chest pains. The patient on isosorbide. 5. Diastolic type congestive heart failure, compensated. The patient on Lasix. 6. Chronic atrial fibrillation. The patient is anticoagulated. Heart rates are controlled. 7. Adult failure to thrive and ambulatory dysfunction. The patient working with physical therapy. 8. Hypokalemia from Lasix, replaced with extra potassium supplements. Potassium level is normal now. [place], [place] PROGRESS NOTE NAME: NEIL TUTTLE UNIT #: [id number] ROOM: 509 DOCTOR: KIM GARCIA MD BIRTHDATE: [birth year] KIM GARCIA MD CM:PNTRANS [phone] KIM GARCIA MD 06/24/18 1151 interface
--- NOTE | ~2018-06-21 | WRIGHTHP ---
[place], [place] PATIENT HISTORY AND PHYSICAL EXAM NAME: NEIL TUTTLE [facility] #: [id number] UNIT #: [id number] ROOM: 509 DOCTOR: KIM GARCIA MD BIRTHDATE: [birth year] DOS: 06/21/2018 HISTORY OF PRESENT ILLNESS: The patient is an 88-year-old female who presented to the Emergency Department from home when her neighbor called the ambulance for the patient not doing well and being confused. The patient was evaluated in the Emergency Department and found to have urinary tract infection. The patient was having some hallucinations. The patient apparently lives by herself, was having some pain with urination according to her friend and difficulty with breathing and was confused. The patient was diagnosed as having metabolic encephalopathy with mental confusion and urinary infection. Urine cultures were sent and the patient was admitted for further management. The patient is pleasantly confused, but she is complaining of weakness, but no chest pains. No fainting episodes. No other GI or urinary symptoms. REVIEW OF SYSTEMS: RESPIRATORY: Mild increase in shortness of breath. GASTROINTESTINAL: No nausea, vomiting, diarrhea or constipation. CARDIOVASCULAR: No chest pains or palpitations. FAMILY HISTORY: Noncontributory. HOME MEDICATIONS: Xarelto, potassium, simvastatin, Lasix, levothyroxine, clonidine, hydroxyzine, lisinopril, isosorbide, lovastatin and atenolol. ALLERGIES: No known drug allergies. PHYSICAL EXAMINATION: GENERAL: Alert, pleasantly confused, in no visible distress. Generalized weakness. HEENT AND NECK: Extraocular movements are intact. Sclerae are anicteric. Oral mucosa is moist and clean. No obvious facial weakness. Neck is supple without any lymphadenopathy. No thyromegaly. No JVD. No carotid arterial bruits. LUNGS: Clear to auscultation. No wheezing. No rhonchi. CARDIOVASCULAR SYSTEM: Heart rate is regular in rate and rhythm. S1 and S2 normally audible. No significant murmur or any other abnormal cardiac sounds. ABDOMEN: Soft, nontender. No obvious organomegaly. Bowel sounds are present. No obvious herniation. EXTREMITIES: Without significant cyanosis or edema. Warm to touch. CENTRAL NERVOUS SYSTEM: Alert and oriented x 3. Cranial nerves II-XII are intact. Speech is normal. The patient is able to move all extremities. Normal muscle strength. Deep tendon reflexes are equal on both sides. Plantars were downgoing. LABORATORY DATA: Chest x-ray without acute abnormality. Lactic acid level was normal. CBC was normal. Normal serum electrolytes except for potassium low at 3.4 and sodium high at 148. IMPRESSION AND PLAN: The patient presenting with metabolic encephalopathy and mental confusion when normally she lives by herself, was sent to the Emergency Department by her friend who looks out for her at home and is a neighbor. The patient found to have a urinary infection. Urine cultures are pending. [place], [place] PATIENT HISTORY AND PHYSICAL EXAM NAME: NEIL TUTTLE UNIT #: [id number] ROOM: 509 DOCTOR: RADHA ROBERTS,KIM Guajardo BIRTHDATE: [birth year] 1. Urinary tract infection, to be treated with Rocephin. White cell counts to be monitored and we will wait for urine culture results. 2. Hypokalemia, to be treated with extra potassium supplements. Serum electrolytes will be repeated. 3. Hyperlipidemia, is being treated with simvastatin. 4. Benign essential hypertension with blood pressures being elevated, is to be treated with clonidine, atenolol, lisinopril and isosorbide as she was taking at home. 5. Coronary artery disease of [place] vessel. The patient remains on isosorbide and is chest pain free. The patient has a past medical history of chronic diastolic type congestive heart failure and chronic atrial fibrillation. The patient is anticoagulated. 6. History of cancer of the bladder, treated with chemotherapy. 7. Spinal stenosis and radiculopathy. 8. Mixed type hyperlipidemia. 9. Gastroesophageal reflux disease and esophagitis. 10. History of coronary artery disease of the [place] vessels. 11. The patient with chronic atrial fibrillation with controlled heart rates and she is anticoagulated with Xarelto. KIM GARCIA MD CM:HISPHYS:PATIENT HISTORY AND PHYSICAL EXAMINATION [phone] KIM GARCIA MD 06/22/18 0244 interface
--- NOTE | ~2018-06-21 | EKG ---
[place], [place] ELECTROCARDIOGRAM REPORT NAME: NEIL TUTTLE UNIT #: [id number] ROOM: 509 DOCTOR: CHAVO DRAFT REPORT BIRTHDATE: [birth year] [facility] Test Date: 2018-06-21 Test Time: 00:55:07 Pat Name: NEIL TUTTLE Department: Room: 509 Gender: F Plant Puller: : [id number] Requested By: PATTY GALVIN Order Number: [id number] Reading MD: Mickey León Measurements Intervals [place] Rate: 104 P: [place]: QRS: 38 QRSD: 99 T: 139 QT: 386 QTc: 508 Interpretive Statements Atrial fibrillation Ventricular premature complex Anterior infarct, old Repol abnrm suggests ischemia, lateral leads Minimal ST elevation, inferior leads Prolonged QT interval Compared to ECG 04/11/2018 23:46:34 Ventricular premature complex(es) now present Early repolarization now present Possible ischemia now present ST (T wave) deviation now present Myocardial infarct finding still present Electronically Signed On 06-23-2018 12:40:55 PST by Mickey León CM:EKGRPT:ELECTROCARDIOGRAM REPORT [id number] PATTY APPIAH DRAFT REPORT PATTY GALVIN DO
--- NOTE | ~2018-06-21 | PR ---
[place], [place] PROGRESS NOTE [id number] UN[facility] #: [id number] ROOM: 509 DOCTOR: MINISTERIO CHRISTY MD BIRTHDATE: [birth year] DOS: SUBJECTIVE: The patient is a little bit more calm today, but has periods of agitation. OBJECTIVE: VITAL SIGNS: Blood pressure is 127/80, pulse of 100, respirations 20, temperature 97.8. LUNGS: Clear. HEART: Irregular. ABDOMEN: Obese, soft. EXTREMITIES: Without any edema. ASSESSMENT AND PLAN: 1. Metabolic encephalopathy, multifactorial. The patient is definitely much slightly better than Tuesday. Risperdal is most likely working. 2. Adult failure to thrive, convinced her to go to [facility] for a few days of therapy and she agreed, so arrangements are being made. So, hopefully the patient can be moved out today. 3. Chronic atrial fibrillation. Heart rate slightly on the high side today, most likely from her agitation as well as lack of medications. The patient had refused medicines on Tuesday. Restart all those meds. 4. Urinary tract infection on Ceftin. Continue. MINISTERIO CHRISTY MD CM:PNTRANS [phone] MINISTERIO CHRISTY MD 06/26/18 1356 interface
--- NOTE | ~2018-06-21 | DS ---
[place], [place] DISCHARGE SUMMARY NAME: NEIL TUTTLE UNIT #: [id number] ROOM: 509 DOCTOR: MINISTERIO CHRISTY MD BIRTHDATE: [birth year] DOS: 06/26/2018 DIAGNOSES: 1. Urinary tract infection. 2. Metabolic encephalopathy with hallucinations. 3. Age-related cognitive slowing. 4. Urinary tract infection with Proteus. 5. History of carcinoma of the bladder. 6. Adult failure to thrive. 7. Benign hypertension. 8. Chronic atrial fibrillation. DISCHARGE MEDICATIONS: Ceftin 250 twice a day for 5 days, rivastigmine 4.6 patch daily, Risperdal 1 mg b.i.d., hydroxyzine 25 t.i.d. p.r.n., lovastatin 20 daily, atenolol 100 mg daily, lisinopril 20 daily, isosorbide 30 daily, Lasix 20 daily, Xarelto 15 daily, potassium 10 daily, levothyroxine 50 mcg daily, clonidine 0.2 at bedtime, vitamin D 1000 units daily. HOSPITAL COURSE: The patient is very well known to us, comes in with abdominal pain, increased frequency of urination. Please refer to H and P dictated by Dr. Head for further details. After admission, the patient was placed on IV fluids, IV antibiotics. The patient's mental status continued to get worse with increasing confusion, agitation, paranoia and hallucinations. At this point, some changes in medications were made and she has calmed down slightly, has refused antibiotics, IV fluids and IV antibiotics over the last several days. She is willing to start taking the medicines now. She has agreed to go to [facility] for therapy. Social Service will be consulted and the plan is to discharge her today to [facility] for continued close followup as well as PT, OT. DIET: Low sodium. [place], [place] DISCHARGE SUMMARY NAME: NEIL TUTTLE UNIT #: [id number] ROOM: 509 DOCTOR: MINISTERIO CHRISTY MD BIRTHDATE: [birth year] MINISTERIO CHRISTY MD CM:DISCHARG [phone] MINISTERIO CHRISTY MD 06/26/18 1223 interface
--- NOTE | ~2018-06-21 | PR ---
[place], [place] PROGRESS NOTE [id number] UNIT #: [id number] ROOM: 509 DOCTOR: MINISTERIO CHRISTY MD BIRTHDATE: [birth year] DOS: 06/24/2018 SUBJECTIVE: The patient is doing poorly this morning with hallucinations and mostly visual. She does not have any chest pains, palpitations, wants to go home, things that she is going to lose a house. She is almost paranoid this morning. PHYSICAL EXAMINATION: VITAL SIGNS: Blood pressure is 122/71, pulse of 90, respirations 20, temperature 98.9. LUNGS: Diminished breath sounds, clear. HEART: Regular. ABDOMEN: Obese, soft. EXTREMITIES: Without any edema. ASSESSMENT AND PLAN: 1. Klebsiella pneumoniae urinary tract infection, on IV antibiotics, but the patient does not have any IV this morning. It looks like it was pulled out and she is refusing to put it back in. 2. Hypokalemia, which is corrected. 3. Metabolic encephalopathy with hallucinations. The patient will need to be given Haldol this morning and we will try to consult Dr. Briceño for Behavioral Health management if she does not improve and will need short-term placement. MINISTERIO CHRISTY MD CM:PNTRANS [phone] MINISTERIO CHRISTY MD 06/25/18 0710 interface
--- NOTE | ~2018-06-21 | PR ---
[place], [place] PROGRESS NOTE NAME: NEIL TUTTLE UNIT #: [id number] ROOM: 509 DOCTOR: KIM GARCIA MD BIRTHDATE: [birth year] DOS: 06/22/2018 SUBJECTIVE: The patient is less confused today. She knows that she lives by herself and where she is. Last night she was very confused, refusing antibiotics and hitting at the nurses. PHYSICAL EXAMINATION: GENERAL APPEARANCE: The patient is alert and oriented x 3, in no visible distress. Generalized weakness. VITAL SIGNS: Blood pressure 142/82, heart rate of 103 beats per minute, breathing 20 times per minute, afebrile. HEENT AND NECK: Exam within normal limits. CARDIOVASCULAR SYSTEM: Heart rate is regular in rate and rhythm. S1 and S2 normally audible. LUNGS: Clear to auscultation. ABDOMEN: Soft, nontender. No obvious organomegaly. Bowel sounds are present. EXTREMITIES: Without significant cyanosis or edema. IMPRESSION: 1. Metabolic encephalopathy with mental confusion from urinary tract infection. Urine cultures are growing heavy gram-negative bacilli. Final culture results are still pending. 2. Hypokalemia from Lasix. The patient already on potassium supplements. I will give her an extra dose today and repeat levels tomorrow. 3. Coronary artery disease of the [place] vessels without chest pain. 4. Benign essential hypertension. Blood pressures have been monitored and controlled. 5. Coronary artery disease of the [place] vessels. The patient is on isosorbide, chest pain free. 6. Diastolic type congestive heart failure. The patient diuresed with Lasix. 7. Chronic atrial fibrillation. The patient is anticoagulated. 8. Adult failure to thrive and ambulatory dysfunction. The patient working with physical therapy. [place], [place] PROGRESS NOTE NAME: NEIL TUTTLE UNIT #: [id number] ROOM: 509 DOCTOR: KIM GARCIA MD BIRTHDATE: [birth year] KIM GARCIA MD CM:PNTRANS [phone] KIM GARCIA MD 06/23/18 0454 interface
[~2018-06-21 00:33] MED LIST changes: +CEFUROXIME AXE500 MG PO; +PYRIDIUM200 M1 PO
[2018-06-21 01:31] LABS: BASO % 0.8 % (0.0-1.0); EOS # 0.2 10*3/uL (0.0-0.4); EOS % 3.7 % (1.0-4.0); HEMATOCRIT 40.6 % (37.0-47.0); HEMOGLOBIN 13.5 g/dl (12.0-16.0); LYMPH # 1.3 10*3/uL (1.3-4.4); LYMPH % 25.9 % (27.0-41.0); MEAN CELL VOLUME 100.7 fl (81.0-99.0); MEAN CORPUSCULAR HGB 33.5 pg (27.0-31.0); MEAN CORPUSCULAR HGB CONC 33.3 g/dl (33.0-37.0); MEAN PLATELET VOLUME 11.2 fl (9.6-12.3); MONO # 0.5 10*3/uL (0.1-1.0); MONO % 9.7 % (3.0-9.0); NEUT # 3.1 10*3/uL (2.3-7.9); NEUT % 59.5 % (47.0-73.0); PLATELET COUNT AUTOMATED 146 10*3/uL (130-400); RED BLOOD COUNT 4.03 10*6/uL (4.10-5.10); RED CELL DISTRI WIDTH 13.7 % (0-14.5); WHITE BLOOD COUNT 5.2 10*3/uL (4.8-10.8)
[2018-06-21 01:48] LABS: ALBUMIN 3.2 gm/dl (3.1-4.5); ALKALINE PHOSPHATASE 105 U/L (45-117); BUN 24 mg/dl (7-24); CHLORIDE 111 mmol/L (98-107); CREATININE 1.04 mg/dL (0.55-1.02); POTASSIUM 3.4 mmol/L (3.5-5.1); SGOT/AST 27 IU/L (3-35); SGPT/ALT 25 U/L (12-78); SODIUM 148 mmol/L (136-145); TOTAL PROTEIN 6.3 gm/dL (6.4-8.2)
[2018-06-21 01:49] LABS: TROPONIN I < 0.015 ng/ml (<0.045)
--- NOTE | 2018-06-21 01:51 | NUR ---
PATIENT DID URINATE IN A HAT, PATIENT DID NOT URINATE ENOUGH TO COLLECT AND SENT TO THE LAB.. WILL TRY AGAIN..
[2018-06-21 03:25] LABS: BILIRUBIN 1+ (NEGATIVE); BLOOD 3+ (NEGATIVE); CLARITY TURBID (CLEAR); COLOR YELLOW (YELLOW); GLUCOSE NEGATIVE (NEGATIVE); KETONE TRACE (NEGATIVE); LEUKO ESTERASE 2+ (NEGATIVE); NITRITE POSITIVE (NEGATIVE); SPECIFIC GRAVITY 1.025 (1.005-1.030); UROBILINOGEN 0.2 E.U./dl (0.2-1.0)
[2018-06-21 03:41] LABS: WBC TNTC wbc/hpf (0-5)
[2018-06-21] MEDS ORDERED: VITAMIN D350000 UNIT PO (04:38)
[2018-06-21] MEDS ORDERED: POTASSIUM CHLO10 MEQ PO (04:44)
--- NOTE | 2018-06-21 05:05 | NUR ---
A 88, admitted to , under the services of Dr. RADHA ROBERTS,KIM Guajardo with a diagnosis of UTI, METABOLIC ENEPHALOPATHY, SEVERE SEPSIS. Chief complaint is CHANGE IN MENTAL STATUS. Patient arrived via ambulatory from ER. Monitor applied. Initial assessment completed. Vital signs taken and recorded. DR. RADHA ROBERTS,KIM Guajardo notified of admission to the unit. Orders received. See assessment for past medical history, medications and allergies. Patient and/or family oriented to unit. [facility] visitation policy reviewed. Clothing/patient valuable form completed. AYAZ GALDAMEZ
[2018-06-21] MEDS ORDERED: VITAMIN D50000 UNIT PO (05:53)
[2018-06-21] MEDS ORDERED: LEVOTHYROXINE50 MCG PO (05:54)
[2018-06-21] MEDS ORDERED: VITAMIN D31000 UNI1 PO (05:54)
[2018-06-21] MEDS ORDERED: CLONIDINE0.2 MG PO (05:55)
--- NOTE | 2018-06-21 06:24 | NUR ---
DR. CHRISTY NOTIFIED OF PT'S ADMISSION TO FLOOR. T.O. RCVD FOR CLONIDINE 0.1MG PO X1 NOW.
--- NOTE | 2018-06-21 07:16 | NUR ---
PT STATES SHE WISHES TO CHANGE HER CODE STATUS TO DNRCC. SHE DOES NOT WISH TO HAVE ANY LIFE SAVING MEASURES WHAT SO EVER. CAN YOU PLEASE SPEAK WITH HER RE THIS. SHE TOLD ME SHE DID NOT HAVE A POA THOUGH.
--- NOTE | 2018-06-21 08:30 | NUR ---
Sales Assistant [employer] in to talk to patient. Patient states lives at home alone in an apartment with her [id number]-pyf, friends and neighbors checking in on her. There are 10-11 steps in the home. Physician: Dr. Alina Webb Pharmacy: [facility] Home health services: she had [facility] previously Patient's level of ADLs: MINIMAL ASSIST Patient has working utilities: yes DME: cane, walker Follow-up physician's appointment after d/c: she prefers to make her own follow up appt after discharge Does patient want to access PORTAL?: no Discharge plan discussed with patient. She lives at home alone in her apartment with her ridyox-tg-aro, friends, and neighbors checking in on her. Her neighbor Catrachita comes over to clean her apartment and wash her clothes. She is independent in her ADLs and uses a cane or walker for ambulation. Discussed home health care services and denies any home needs at this time. She has had [facility] previously. When medically stable she will be discharged to home. SHANNON FUCHS
--- NOTE | 2018-06-21 11:06 | NUR ---
ATTEMPTED TO CALL PATIENTS CONTACT A FRIEND LAMONTE TO FIND OUT IF PATIENT LIVES ALONE, IF SHE HAS ANY FAMILY ETC., LEFT MESSAGE TO CALL BACK
--- NOTE | 2018-06-21 11:08 | NUR ---
DR. UPTON IN TO SEE PATIENT
--- NOTE | 2018-06-21 16:00 | NUR ---
CHIAR ALARM WAS GOING OFF, WENT INTO PATIENT ROOM. PT WAS STANDING IN FRONT OF CHAIR, WHEN ASKED WHY SHE GOT UP SHE STATED "THE GIRL RIGHT OUT THERE TOLDME TO COME HERE" SHW POINTING OUTSIDE HER WINDOWN WHEN REFERRIGN TO "THE GIRL" ATTEMPTED TO REORIENT PATIENT, PT SAT BACK DOWN IN CHAIR AND ALARM PLACED BACK ON.
--- NOTE | 2018-06-21 16:00 | NUR ---
SPOKE TO PATIENTS NEXT OF KIN LISTED IN OUR SYSTEM : LAMONTE CUEVAS. PER LAMONTE PATIENT DOES HAVE A SON WHO HAD POWER OF GLAZE CARRIER HOWEVER, THE PATIENT AND HIM HAVE HAD A FALLING OUT AND HAVE NOT SPOKEN FOR AROUND 5 YEARS, THE PATIENT DID NOT CHANGE OR UNDO THE POWER OF GLAZE CARRIER PAPERWORK. LAMONTE DID NOT HAVE A PHONE NUMBER TO CONTACT PATIENTS SON AND STATED THAT HE CHANGES HIS PHONE NUMBER [id number]. PT HAS NO OTHER FAMILY TO GET INTO CONTACT WITH. LAMONTE MANAGES THE APARTMENTS WHERE THE PATIENT LIVES AND HAS BEEN FRIENDS WTIH HER FOR OVER 15 YEARS AND CHECKS ON HER DAILY. WHEN PATIENT IS DISCHARGED, LAMONTE WOULD BE THE ONE TO CONTACT TO TUMBLING INSTRUCTOR PATIENT. LAMONTE HOME NUMBER IS [phone] AND WORK PHONE NUMBER IS [phone] ( SHE WORKS MOST DAYS UNTIL 3 OR 4 PM)
--- NOTE | 2018-06-21 17:36 | NUR ---
PT RESTING QUIETLY IN CHAIR, NO NEEDS STATED AT THIS TIME
--- NOTE | 2018-06-21 21:56 | NUR ---
24 HR chart check completed.
[2018-06-22] VITALS: BP 146/93
--- NOTE | 2018-06-22 07:30 | NUR ---
PT IN BED.RESPS EASY ON RA SHE YELLS THAT "I DON'T WANT BOTHERED UNTIL AFTER 9AM". PT UNCOOPERATIVE, AND UPSET. ADVISED PT THAT I WOULD BE BACK AT 9 AM. TURNED LIGHT S OUT TO DECREASE STIMULATION.
[2018-06-22 08:00] VITALS: BP 152/60; BP 164/98
--- NOTE | 2018-06-22 08:20 | NUR ---
PT RESTING IN BED WITH EYES CLOSED. RESPS EASY ON RA. NO DISTRESS NOTED AT THIS TIME.BED ALARM INTACT. CALL LIGHT IN REACH.
--- NOTE | 2018-06-22 09:00 | NUR ---
Replenishment Buyer in to see patient. No new needs or request at this time. She denies any home needs. When medically stable she will be discharged to home.
--- NOTE | 2018-06-22 09:10 | NUR ---
PT AWAKE AND COOPERATIVE AT THIS TIME.EMOTIONAL SUPPORT PROVIDED. ASSESSMENT COMPLETE. RESPS EASY ON RA. NO DISTRESS NOTED AT THIS TIME. ALARM INTACT. CALL LIGHT IN REACH.
[2018-06-22 10:36] LABS: BASO % 0.6 % (0.0-1.0); EOS # 0.1 10*3/uL (0.0-0.4); EOS % 1.3 % (1.0-4.0); HEMATOCRIT 39.1 % (37.0-47.0); LYMPH # 1.6 10*3/uL (1.3-4.4); LYMPH % 23.4 % (27.0-41.0); MEAN CORPUSCULAR HGB 33.2 pg (27.0-31.0); MEAN CORPUSCULAR HGB CONC 33.2 g/dl (33.0-37.0); MEAN PLATELET VOLUME 11.7 fl (9.6-12.3); MONO # 0.5 10*3/uL (0.1-1.0); MONO % 7.8 % (3.0-9.0); NEUT # 4.6 10*3/uL (2.3-7.9); NEUT % 66.5 % (47.0-73.0); PLATELET COUNT AUTOMATED 140 10*3/uL (130-400); RED BLOOD COUNT 3.91 10*6/uL (4.10-5.10); RED CELL DISTRI WIDTH 13.9 % (0-14.5)
[2018-06-22 10:43] LABS: BUN 20 mg/dl (7-24); CHLORIDE 111 mmol/L (98-107); POTASSIUM 3.2 mmol/L (3.5-5.1); SODIUM 145 mmol/L (136-145)
[2018-06-22 12:00] VITALS: BP 153/79
--- NOTE | 2018-06-22 14:09 | NUR ---
IV started right antecubital with #22 protective cath after 1 attempts. Site prepped with Chloroprep. Sterile dressing applied. Patient tolerated procedure well. NEL HDEZ
--- NOTE | 2018-06-22 14:43 | NUR ---
PHYSICAL THERAPY PAtient evaluated on 5, full evaluation to follow. Continue with PT as per plan of care with fall, UTI and decreased safety awareness precautions. recommend SNF. PAtient is high complexity via chart review, tests and evaluation: [id number]. Thank you for this referral. Sowmya Urrutia,PT
--- NOTE | 2018-06-22 15:08 | NUR ---
Discussed short term SNF and she refuses. Discussed home health care services and she is agreeable. When given a list of agencies she chose [facility].
[2018-06-22 16:00] VITALS: BP 142/82
--- NOTE | 2018-06-22 17:30 | NUR ---
Patient resting quietly with no c/o discomfort. Respirations easy and regular. Vital signs stable. No overt distress. NEL HDEZ
[2018-06-22 20:00] VITALS: BP 159/91
--- NOTE | 2018-06-22 23:31 | NUR ---
24 HR chart check completed.
[2018-06-23] VITALS: BP 151/103
[2018-06-23 08:00] VITALS: BP 158/64; BP 168/89
--- NOTE | 2018-06-23 08:00 | NUR ---
Crayon Sawyer in to see patient. Discussed short term SNF and she refuses. Discussed home health care services and she remains agreeable. When medically stable she will be discharged to home with [facility] services.
[2018-06-23 08:11] LABS: BASO % 0.4 % (0.0-1.0); EOS # 0.1 10*3/uL (0.0-0.4); EOS % 1.5 % (1.0-4.0); HEMATOCRIT 38.1 % (37.0-47.0); HEMOGLOBIN 12.7 g/dl (12.0-16.0); MEAN CELL VOLUME 99.5 fl (81.0-99.0); MEAN CORPUSCULAR HGB 33.2 pg (27.0-31.0); MEAN CORPUSCULAR HGB CONC 33.3 g/dl (33.0-37.0); MEAN PLATELET VOLUME 11.5 fl (9.6-12.3); MONO # 0.7 10*3/uL (0.1-1.0); MONO % 9.7 % (3.0-9.0); NEUT % 59.3 % (47.0-73.0); PLATELET COUNT AUTOMATED 132 10*3/uL (130-400); RED BLOOD COUNT 3.83 10*6/uL (4.10-5.10); WHITE BLOOD COUNT 6.8 10*3/uL (4.8-10.8)
[2018-06-23 08:41] LABS: BUN 21 mg/dl (7-24); CHLORIDE 111 mmol/L (98-107); CREATININE 0.83 mg/dL (0.55-1.02); POTASSIUM 3.6 mmol/L (3.5-5.1); SODIUM 146 mmol/L (136-145)
[2018-06-23 12:00] VITALS: BP 151/92
--- NOTE | 2018-06-23 13:45 | NUR ---
PHYSICAL THERAPY PAtient with PT treatment this date x 15 minutes 1:1 with PT. Upon entering room, patient naked and covered by sheet. Complaints of being "wet from pee" from patient. Nurse educated. railways assistant and this PT changed and dressed patient as well as clean linens completed. Bed mobility and transfers supine to stand to supine, and bed to chair mod (A) x 1 an contant/max verbal cues/instruction for safety, seqeunce, proper UE/LE placement and encouragement throughout. Multiple multi directional loses of balance with transfers sit to stand from bed and commode. Commode transfers mod (A) and max cues as above. Ambulation 30 feet x 2, 10 feet x 1, mod (A), multiple multi directional loses of balance and schuffling gait: increased balance and safety issues with turns and changes in direction. MAx cues/instruction to normlaize posture, gait, increase safety and increase step length, base of support and stand tall/erect. Moderate fatigue with gait noted. Sitting balance static at edge of bed cg and max cues to remain seated. Mild to moderate confusion noted and increased difficulty with two step commands. After treatment, patient in recliner, alarm intact and call light in reach and patient with continued care from ksenia assistant director of nursing. Continue with PT as per plan of care. Continue to recommend SNF. Sowmya Singh,PT
[2018-06-23 16:00] VITALS: BP 143/80
[2018-06-23 20:00] VITALS: BP 156/89
[2018-06-24] VITALS: BP 122/71
--- NOTE | 2018-06-24 03:10 | NUR ---
24 HR chart check completed.
--- NOTE | 2018-06-24 08:38 | NUR ---
PT VERBALLY AGGRESSIVE WITH STAFF. REFUSED AM MEDS. LAB IS BACK IN PT ROOM ATTEMPTING TO GET LAB WORK. NURSE AT BEDSIDE. PT PARANOID WITH STAFF AT THIS TIME. SAYS WE ARE TRYING TO PUSH SOMETHING INTO HER IV. NO MEDS IN ROOM AT THIS TIME. EXPLAINED IMPORTANCE OF LAB WORK. PT WORRIED ABOUT HOUSE AND CAR. LAB WORK OBTAINED. PTS MOOD SEEMS BETTER AND MORE COOPERATIVE AFTER TALKING.
[2018-06-24 08:42] LABS: BASO % 0.4 % (0.0-1.0); EOS # 0.1 10*3/uL (0.0-0.4); EOS % 1.2 % (1.0-4.0); HEMATOCRIT 40.7 % (37.0-47.0); HEMOGLOBIN 13.7 g/dl (12.0-16.0); LYMPH # 2.4 10*3/uL (1.3-4.4); LYMPH % 29.6 % (27.0-41.0); MEAN CELL VOLUME 98.8 fl (81.0-99.0); MEAN CORPUSCULAR HGB 33.3 pg (27.0-31.0); MEAN CORPUSCULAR HGB CONC 33.7 g/dl (33.0-37.0); MEAN PLATELET VOLUME 11.2 fl (9.6-12.3); MONO # 0.8 10*3/uL (0.1-1.0); MONO % 9.6 % (3.0-9.0); NEUT # 4.8 10*3/uL (2.3-7.9); PLATELET COUNT AUTOMATED 148 10*3/uL (130-400); RED BLOOD COUNT 4.12 10*6/uL (4.10-5.10); RED CELL DISTRI WIDTH 13.8 % (0-14.5); WHITE BLOOD COUNT 8.1 10*3/uL (4.8-10.8)
--- NOTE | 2018-06-24 08:47 | NUR ---
IN TO SEE PT. SAID SHE WOULD ORDER HALDOL FOR PTs CURRENT CONFUSED STATE.
--- NOTE | 2018-06-24 08:53 | NUR ---
IV REMOVED FOR LEAKING AT SITE/INFILTRATION. PT REFUSING TO HAVE ANOTHER PLACED AT THIS TIME. DR.THOMAS STAPLETON.
[2018-06-24 08:57] LABS: BUN 22 mg/dl (7-24); CHLORIDE 108 mmol/L (98-107); CREATININE 0.93 mg/dL (0.55-1.02); POTASSIUM 3.3 mmol/L (3.5-5.1); SODIUM 143 mmol/L (136-145)
--- NOTE | 2018-06-24 10:38 | NUR ---
PT CALM AND COOPERATIVE AFTER HALDOL.
--- NOTE | 2018-06-24 10:55 | NUR ---
PT UNCOOPERATIVE, NOT WANTING TO TAKE PO MEDS THIS AM.EXPLAINED RISKS AND BENEFITS. PT ARGUMENTATIVE BUT TAKING PO MEDS.
--- NOTE | 2018-06-24 10:57 | NUR ---
PT STILL REFUSING STAFF TO START AN IV. PT STATES SHE DOESN'T NEED THE IV ABX ANYMORE.
--- NOTE | 2018-06-24 11:00 | NUR ---
PT STILL HALLUCINATING MEN BEHIND HER DOOR. REASSURED HER THERE WAS NO ONE IN THE ROOM BUT MYSELF AND THE PT.
--- NOTE | 2018-06-24 12:02 | NUR ---
2+ EDEMA TO BLE. PT REFUSING TEDS AT THIS TIME.
--- NOTE | 2018-06-24 13:17 | NUR ---
SLEEPING, NO SXS OF DISTRESS NOTED. 02 IN USE. CALL LIGHT IN REACH. BED ALARM ON.
[2018-06-24 13:30] VITALS: BP 155/102; BP 168/108
[2018-06-24 14:10] VITALS: BP 148/62
--- NOTE | 2018-06-24 14:23 | NUR ---
PT INCONTINENT OF URINE. CHANGED. TOLERATED WELL. PT COOPERATIVE WITH CARE. TEDS APPLIED WITH PT CONSENT. PT STILL REFUSING TO HAVE IV RESTARTED.
[2018-06-24 16:00] VITALS: BP 153/90
--- NOTE | 2018-06-24 16:29 | NUR ---
NOTIFIED THE PT IS STILL REFUSING HER IV. SAID TO D/C ROCEPHIN AND START HER ON CEFTIN BID. SEE MAR.
--- NOTE | 2018-06-24 18:35 | NUR ---
REFUSING VISTARIL. STATES SHE DOESN'T NEED IT AT THIS TIME.
[2018-06-24 20:00] VITALS: BP 106/61
[2018-06-25] VITALS: BP 109/52
[2018-06-25 12:00] VITALS: BP 135/78
--- NOTE | 2018-06-25 15:33 | NUR ---
RESTING IN BED WITH EYES CLOSED. NO DISTRESS NOTED.RESPS EASY ON RA.BED ALARM INTACT.CALL LIGHT IN REACH.
[2018-06-25 16:00] VITALS: BP 119/58
--- NOTE | 2018-06-25 18:39 | NUR ---
Patient resting quietly with no c/o discomfort. Respirations easy and regular. Vital signs stable. No overt distress. NEL HDEZ
[2018-06-25 20:00] VITALS: BP 139/81
[2018-06-26] VITALS: BP 127/83
--- NOTE | 2018-06-26 07:15 | NUR ---
Patient resting quietly with no c/o discomfort. Respirations easy and regular. Vital signs stable. No overt distress. REY HERNANDEZ
--- NOTE | 2018-06-26 07:42 | NUR ---
24 HR chart check completed. Patient resting quietly with no c/o discomfort. Respirations easy and regular. Vital signs stable. No overt distress. REY HERNANDEZ
[2018-06-26 08:00] VITALS: BP 120/88
[2018-06-26] MEDS ORDERED: RIVASTIGMINE1 EACH T (08:51)
[2018-06-26] MEDS ORDERED: CEFUROXIME AXE250 MG PO (08:51)
[2018-06-26] MEDS ORDERED: RISPERIDONE1 MG PO (08:51)
[2018-06-26] MEDS ORDERED: HYDROXYZINE PAM25 M1 PO (08:51)
--- NOTE | 2018-06-26 09:00 | NUR ---
Palliative Senior Np in to see patient. She is sitting up in her bedside chair without distress notes. Discussed short term rehab and she is agreeable. When given a list of facilities she chose [facility]. space planner notified.
--- NOTE | 2018-06-26 09:26 | NUR ---
Patient is now agreeing to snf placement, when given a list of facilities patient asked to be referred to [facility]. Contacted facility and faxed referral, notified them patient is ready for d/c today. PASS/RR completed. Waiting on review/acceptance.
[2018-06-26 12:00] VITALS: BP 122/78
--- NOTE | 2018-06-26 13:52 | NUR ---
Patient has been accepted to [facility], 3 night stay complete, pass/rr completed, patient is ok to go when medically stable for discharge.
--- NOTE | 2018-06-26 14:31 | NUR ---
Patient discharged to [facility], transportation scheduled for 2:30 with [place]. NH, dining car steward and nursing notified. DC info faxed.
--- NOTE | 2018-06-26 14:39 | NUR ---
PT LEAVING IN CARE OF AMBULANCE SERVICE FOR [facility].
[2018-07-25] MEDS ORDERED: [UNRECOGNIZED DRUG - OTHER] PO (11:06)
[2018-07-25] MEDS ORDERED: VITAMIN D250 MCG PO (11:09)
[2018-07-25] MEDS ORDERED: VITAMIN D5000 UNIT PO (11:10)
[2018-07-26] MEDS ORDERED: FUROSEMIDE20 M1 PO (07:37)
[2018-07-26] MEDS ORDERED: CEFUROXIME AXE250 MG PO (07:38)
[2018-08-07] MEDS ORDERED: DILTIAZEM HCL240 M1 PO (08:36)
[2018-08-11] MEDS ORDERED: LISINOPRIL40 MG PO (00:44)
[2018-08-11] MEDS ORDERED: CLONIDINE HCL0.2 MG PO (00:44)
[2018-08-11] MEDS ORDERED: HYDROXYZINE PAM25 M1 PO (00:46)
[2018-09-06] MEDS ORDERED: SIMVASTATIN20 MG PO (16:35)
[2018-09-06] MEDS ORDERED: NYSTATIN CREAM15 GM T (16:38)
[2018-09-08] MEDS ORDERED: LEVOTHYROXINE50 MCG PO (18:22)
[2018-09-08] MEDS ORDERED: EXELON13.3 MG/21 T (18:22)
[2018-09-08] MEDS ORDERED: VITAMIN D5000 UNIT PO (18:22)
[2018-09-08] MEDS ORDERED: HYDROXYZINE PAM25 M1 PO (18:22)
[2018-09-08] MEDS ORDERED: POTASSIUM CHLO10 MEQ PO (18:22)
[2018-09-08] MEDS ORDERED: DOCUSATE SOD100 MG PO (18:22)
[2018-09-08] MEDS ORDERED: SIMVASTATIN20 MG PO ×2 (18:22→18:24)
[2018-10-17] MEDS ORDERED: BUMETANIDE1 MG PO (06:45)
[2018-10-17] MEDS ORDERED: TRAZODONE50 MG PO (06:47)
[2018-10-17] MEDS ORDERED: MIRALAX17 GM PO (06:48)
[2018-10-17] MEDS ORDERED: MILK OF MA400 MG/5 M PO (06:49)
[2018-10-17] MEDS ORDERED: DULCOLAX10 M1 R (06:50)
[2018-10-17] MEDS ORDERED: FLEET ENEMA 13133 ML R (06:50)
[2018-10-17] MEDS ORDERED: ACETAMINOPHEN325 M2 PO (06:51)
[2018-10-17] MEDS ORDERED: FLEET MINERAL133 ML PO (08:50)
[2018-10-17] MEDS ORDERED: Synthroid,Levo50 MCG PO (08:53)
[2018-10-21] MEDS ORDERED: OXYBUTYNIN CHLOR5 MG PO (16:58)
[2018-11-23] MEDS ORDERED: CEPHALEXIN500 M1 PO (12:39)
== END 2018-06-26 14:40 | disposition other institution (70) | DRG 689 ==
LOC: ED 00:33 → EDHOLD 04:30 → 5E 04:30
PROVIDERS: Internal Medicine; Student in an Organized Health Care Education/Training Program; ADMIT Internal Medicine
DX: N39.0 Urinary tract infection, site not specified (principal); G93.41 Metabolic encephalopathy; I50.30 Unspecified diastolic (congestive) heart failure; R44.3 Hallucinations, unspecified; E87.6 Hypokalemia; M48.00 Spinal stenosis, site unspecified; M54.10 Radiculopathy, site unspecified; I11.0 Hypertensive heart disease with heart failure; K21.0 Gastro-esophageal reflux disease with esophagitis; B96.1 Klebsiella pneumoniae [K. pneumoniae] as the cause of diseases classified elsewhere; B96.4 Proteus (mirabilis) (morganii) as the cause of diseases classified elsewhere; R62.7 Adult failure to thrive; I48.2 Chronic atrial fibrillation; E78.5 Hyperlipidemia, unspecified; I25.10 Atherosclerotic heart disease of native coronary artery without angina pectoris; Z92.21 Personal history of antineoplastic chemotherapy; Z85.51 Personal history of malignant neoplasm of bladder; Z68.28 Body mass index [BMI] 28.0-28.9, adult

== ENCOUNTER 2018-07-26 11:14 | Inpatient (IN) | payer MEDICARE ==
[~2018-07-26] VITALS: Ht 152.4 cm; Wt 65.8 kg
--- NOTE | ~2018-07-26 | WRIGHTHP ---
[place], [place] PATIENT HISTORY AND PHYSICAL EXAM NAME: NEIL TUTTLE [facility] #: [id number] UNIT #: [id number] ROOM: 317 DOCTOR: KARINA MORLEY MD BIRTHDATE: [birth year] DOS: 07/27/2018 INITIAL PSYCHIATRIC EVALUATION CHIEF COMPLAINT: "Oh I hope I get to go home soon." HISTORY OF PRESENT ILLNESS: This is an 88-year-old white female, who was initially admitted by Dr. Alina Webb to the medical floor due to a significant alteration in mental status. The patient had been living at [facility] and was discharged home. After being at home, the patient did have a sudden mental status change and was found to have a Gram-negative bacteria in the urine and then encephalopathy. She was subsequently admitted to the medical floor to rule out other organic factors and to stabilize medically. As the UTI was treated, the patient's confusion persisted as did psychotic symptoms as the patient was actively responding to auditory hallucinations. Given the change in mental status and the significant psychotic symptomatology, it was felt that a further evaluation psychiatrically was warranted and she was brought to the [facility] to rule out organic factors, to engage in individual and garcia milieu activity and to stabilize on psychopharmacology. PAST MEDICAL HISTORY: Remarkable for encephalopathy, multi-infarct dementia, carcinoma of the bladder, benign hypertension, failure to thrive, atrial fibrillation and hypothyroidism. SOCIAL HISTORY: She does not smoke, drink alcohol or use drugs. STRENGTHS: Ambulatory, good verbal skills. WEAKNESSES: Confusion, poor coping skills. MENTAL STATUS EXAMINATION: She is alert and oriented to person, place, but not time. Mood does seem to be rather labile. She does endorse hearing voices and seeing things that are not there. This does bother her somewhat. She lacks insight; however, and that she feels that she is ready to go home right now. She does have poor short term memory. DIAGNOSES: Brief psychotic disorder, rule out major depression, recurrent with psychotic features. Rule out Alzheimer's dementia. PLAN: I have already started her on Exelon patch 4.6 mg a day. I will augment with Namenda 5 mg a day and for the psychotic symptomatology, start Risperdal 0.5 mg twice daily. We will engage in individual and garcia milieu activity with the plan to discharge then to the least restrictive environment when psychiatrically stable. [place], [place] PATIENT HISTORY AND PHYSICAL EXAM NAME: NEIL TUTTLE UNIT #: [id number] ROOM: 317 DOCTOR: KARINA MORLEY MD BIRTHDATE: [birth year] KARINA MORLEY MD CM:HISPHYS:PATIENT HISTORY AND PHYSICAL EXAMINATION 6 2 KARINA MORLEY MD 07/27/1843 interface
--- NOTE | ~2018-07-26 | PR ---
[place], [place] PROGRESS NOTE NAME: NEIL TUTTLE UNIT #: [id number] ROOM: 317 DOCTOR: KARINA MORLEY MD BIRTHDATE: [birth year] DOS: 07/31/2018 INTERVAL NOTE CHIEF COMPLAINT: "Oh, I hope to go home today." SUMMARY OF THE VISIT: The patient was interviewed as she was sitting in the back of the dining area. She had her breakfast completed and she smiled upon my approach. She engaged readily in conversation and reports that she is feeling much better. She states that she is sleeping well, eating well and is hopeful that she will be able to go home soon. She still exhibits some mild gaps in memory, but these seem to be improving as well. MENTAL STATUS EXAMINATION: She is alert and oriented to person, place, and approximate to time. Mood does seem to be trending towards euthymia. Affect is much more appropriate. There is no negrito, hypomania or psychosis. Short-term memory continues to have gaps. PLAN: I will maximize out her Exelon patch now bringing it from 9.5 to 13.3 mg a day. We will finalize discharge plans returning to the least restrictive environment when psychiatrically stable. KARINA MORLEY MD CM:PNTRANS [id number] KARINA MORLEY MD 07/31/18 1309 interface
--- NOTE | ~2018-07-26 | PR ---
[place], [place] PROGRESS NOTE [id number] UN[facility] #: [id number] ROOM: 317 DOCTOR: KARINA MORLEY MD BIRTHDATE: [birth year] DOS: 07/28/2018 INTERVAL NOTE CHIEF COMPLAINT: "I need my glasses, I think that other hospital has them." SUMMARY OF THE VISIT: The patient was interviewed as she was finishing a cup of tea. She reported to me that she wishes she had her glasses and that she cannot see too well without them. She believes that they are at the other hospital that she was first admitted to. Otherwise, she seems to be clearing gradually and is more goal oriented in her thinking. She reports she slept well and feels much better. MENTAL STATUS: She is alert and oriented with some time gaps. Mood does seem to be trending towards euthymia. Affect is more appropriate. There is no negrito, hypomania or psychosis. Short term memory has gaps, otherwise she is intact. PLAN: I will continue to increase her Exelon patch, bringing it from 4.6 to 9.5 mg a day. I will make a referral for visiting nurses, so that outpatient followup is set prior to her discharge. Engage in individual and garcia milieu activity, returning to the least restrictive environment when psychiatrically stable. KARINA MORLEY MD CM:PNTRANS [id number] KARINA MORLEY MD 07/29/18 0320 interface
--- NOTE | ~2018-07-26 | CON ---
[place], [place] REPORT OF CONSULTATION NAME: [facility]: [id number] UNIT #: [id number] ROOM: 317 DOCTOR: KIM GARCIA MD BIRTHDATE: [birth year] DOS: ATTENDING: Dr. Briceño. HISTORY OF PRESENT ILLNESS: 1. The patient is an 88-year-old female with a past medical history of late onset Alzheimer's type dementia. 2. Visual hallucinations. 3. Carcinoma of the bladder. 4. Benign essential hypertension. 5. Adult failure to thrive. 6. Chronic atrial fibrillation. 7. Hypothyroidism. The patient was sent over to [facility] after initial treatment on a regular floor for being confused, hallucinating and not taking her medications. Dr. Briceño was to follow the patient. The patient was recently treated for urinary tract infection, gram-negative bacilli and she remains on cefuroxime. No chest pain, no shortness of breath, no GI or urinary symptoms. REVIEW OF SYSTEMS: RESPIRATORY: No increasing shortness of breath or wheezing. GASTROINTESTINAL: No nausea, vomiting, diarrhea, constipation, but poor appetite. CARDIOVASCULAR: No chest pains or palpitations. FAMILY HISTORY: Noncontributory. MEDICATIONS: Furosemide, Xarelto, atenolol, rivastigmine, potassium, lisinopril, isosorbide, Urispas, levothyroxine, simvastatin, clonidine, Zyprexa, lorazepam. ALLERGIES: No known drug allergies. PHYSICAL EXAMINATION: GENERAL: Alert, oriented x 3, in no visible distress, poor historian. Generalized weakness. HEENT AND NECK: Extraocular movements are intact. Sclerae are anicteric. Oral mucosa is moist and clean. No obvious facial weakness. Neck is supple without any lymphadenopathy. No thyromegaly. No JVD. No carotid arterial bruits. LUNGS: Clear to auscultation. No wheezing. No rhonchi. CARDIOVASCULAR SYSTEM: Heart rate is regular in rate and rhythm. S1 and S2 normally audible. No significant murmur or any other abnormal cardiac sounds. ABDOMEN: Soft, nontender. No obvious organomegaly. Bowel sounds are present. No obvious herniation. EXTREMITIES: Without significant cyanosis or edema. Warm to touch. CENTRAL NERVOUS SYSTEM: Alert and oriented x 3. Cranial nerves II-XII are intact. Speech is normal. The patient is able to move all extremities. Normal muscle strength. Deep tendon reflexes are equal on both sides. Plantars were [place], [place] REPORT OF CONSULTATION NAME: NEIL TUTTLE UNIT #: [id number] ROOM: 317 DOCTOR: KIM GARCIA MD BIRTHDATE: [birth year] downgoing. IMPRESSION: 1. Generalized weakness and adult failure to thrive. The patient to be started on physical therapy. 2. The patient with some symptoms of brief psychotic disorder and neurocognitive disorder, being treated with Zyprexa, rivastigmine and followed closely at [facility]. 3. Recent urinary tract infection, which has been treated. The patient continues on a cephalosporin orally now. 4. Benign essential hypertension. Blood pressure is to be monitored and treated. Blood pressures are staying normal with treatment with clonidine and atenolol. 5. Mixed hyperlipidemia, treated with simvastatin, which has been continued. Dr. Briceño, thank you for asking me to see the patient. I will continue to follow her for her medical issues. KIM GARCIA MD CM:CONSTR:REPORT OF CONSULTATION 30 07/27/18 1429 interface
--- NOTE | ~2018-07-26 | PR ---
[place], [place] PROGRESS NOTE [id number] #: [id number] ROOM: 317 DOCTOR: KIM GARCIA MD BIRTHDATE: [birth year] DOS: 07/30/2018 SUBJECTIVE: The patient is asymptomatic. OBJECTIVE: VITAL SIGNS: Blood pressure 110/58, heart rate of 72 beats per minute, breathing 18 times per minute, temperature 98.4 degrees Fahrenheit. GENERAL APPEARANCE: The patient is alert and oriented x 3, in no visible distress. HEENT AND NECK: Exam within normal limits. CARDIOVASCULAR SYSTEM: Heart rate is regular in rate and rhythm. S1 and S2 normally audible. LUNGS: Clear to auscultation. ABDOMEN: Soft, nontender. No obvious organomegaly. Bowel sounds are present. EXTREMITIES: Without significant cyanosis or edema. IMPRESSION: 1. The patient has benign essential hypertension. All her blood pressure medications have been discontinued because of blood pressure is staying low normal range. 2. The patient has brief psychotic disorder, remains on memantine and rivastigmine. 3. Chest pressures, evaluated by Cardiology. The patient stays on isosorbide. 4. Coronary artery disease of the [place] vessels. The patient is on isosorbide. No chest pains. 5. Mixed hyperlipidemia, treated with simvastatin. 6. Benign essential hypertension with low blood pressures. Her treatment was discontinued and blood pressures are now staying normal. 7. Late onset of Alzheimer's type dementia treated and followed. 8. Recent urinary tract infection, treated with cephalosporins. KIM GARCIA MD CM:PNTRANS [phone] KIM GARCIA MD 07/31/18 0141 interface
--- NOTE | ~2018-07-26 | PR ---
[place], [place] PROGRESS NOTE [id number] #: [id number] ROOM: 317 DOCTOR: KIM GARCIA MD BIRTHDATE: [birth year] DOS: 07/27/2018 SUBJECTIVE: The patient is feeling much better, denying any hallucinations and feeling much better, expecting to be discharged to home tomorrow. OBJECTIVE: GENERAL APPEARANCE: The patient is alert and oriented x 3, in no visible distress. Generalized weakness. VITAL SIGNS: Blood pressure 126/83, heart rate 85 beats per minute, breathing 16 times per minute, afebrile. HEENT AND NECK: Exam within normal limits. CARDIOVASCULAR SYSTEM: Heart rate is regular in rate and rhythm. S1 and S2 normally audible. LUNGS: Clear to auscultation. ABDOMEN: Soft, nontender. No obvious organomegaly. Bowel sounds are present. EXTREMITIES: Without significant cyanosis or edema. IMPRESSION: 1. Generalized adult failure to thrive. The patient is undergoing physical therapy. Hopefully, will be discharged home tomorrow. 2. Brief psychotic disorder. The patient is feeling much better and being treated with Exelon patch by Dr. Briceño. The patient is already on Namenda and started on small dose of Risperdal. 3. Late onset Alzheimer's type dementia, not being treated as mentioned above. 4. Mixed hyperlipidemia, treated with simvastatin. 5. Benign essential hypertension. Blood pressure is being monitored and treated with clonidine, atenolol, and blood pressures are staying normal. 6. Urinary tract infection being treated with cephalosporin. KIM GARCIA MD CM:PNTRANS [phone] KIM GARCIA MD 07/28/18 0027 interface
--- NOTE | ~2018-07-26 | EKG ---
[place], [place] ELECTROCARDIOGRAM REPORT NAME: NEIL TUTTLE UNIT #: [id number] ROOM: 317 DOCTOR: CHAVO DRAFT REPORT BIRTHDATE: [address] [facility] Test Date: 2018-07-28 Test Time: 11:44:38 Pat Name: NEIL TUTTLE Department: Room: 317 2 Gender: F [place] Farmer: Hanh Noe : 1930 Requested By: KIM GARCIA Order Number: [id number] Reading MD: Mickey León Measurements Intervals [place] Rate: 109 P: TX: QRS: 128 QRSD: 92 T: 12 QT: 376 QTc: 507 Interpretive Statements Atrial fibrillation with RVR Left posterior fascicular block Anteroseptal infarct, age indeterminate Compared to ECG 06/21/2018 00:55:07 Left posterior fascicular block now present Ventricular premature complex(es) no longer present Early repolarization no longer present Possible ischemia no longer present ST (T wave) deviation no longer present Prolonged QT interval no longer present Myocardial infarct finding still present Electronically Signed On 07-30-2018 11:00:47 PDT by Mickey León CM:EKGRPT:ELECTROCARDIOGRAM REPORT [id number] KIM TONY DRAFT REPORT KIM GARCIA MD
--- NOTE | ~2018-07-26 | CON ---
[place], [place] REPORT OF CONSULTATION NAME: NEIL TUTTLE UNIT #: [id number] ROOM: 317 DOCTOR: SUKI ROBERTS,MANUEL BIRTHDATE: [birth year] DOS: 07/29/2018 CARDIOLOGY CONSULT REASON FOR CONSULT: Chest pain. HISTORY OF PRESENT ILLNESS: The patient is an 88-year-old patient with some history of dementia, valvular heart disease, chronic atrial fibrillation, chest pain. Apparently yesterday, she woke up and complained that she has some chest heaviness at rest. No radiation, no associated symptoms. The patient is a somewhat poor historian, but they last for several minutes and relieved without any intervention. There are no associated symptoms. Again, the history is limited due to the patient's mental status. Apparently, she was in the psych unit for her psychiatric issues. At the time of examination, the patient is alert. She denies any chest pain, short of breath. No palpitations, no dizziness, no PND, no orthopnea. No nausea, vomiting, diarrhea. No headaches. No neurologic symptoms. REVIEW OF SYSTEMS: Review of the 10 systems negative except as mentioned above. PAST MEDICAL HISTORY: 1. Hypertension. 2. Valvular heart disease. 3. Chronic atrial fibrillation. 4. Dementia. 5. Dyslipidemia. 6. Hypothyroidism. 7. Bladder cancer. PAST SURGICAL HISTORY: Nil contributory. SOCIAL HISTORY: The patient does not drink or smoke, does not use illicit drugs. FAMILY HISTORY: Nil contributory due to her age. MEDICATIONS: Reviewed. PHYSICAL EXAMINATION: VITAL SIGNS: Blood pressure 108/60, pulse 70, respiratory rate 16, weight 65.7 kilos. GENERAL: Alert, comfortable, in no acute distress. HEAD AND NECK: Supple, no distended neck veins, no carotid bruit. CHEST: Symmetrical, nontender. LUNGS: A few scattered rhonchi. HEART: Irregular, grade 2/6 systolic murmur. No palpitations. ABDOMEN: Benign, nontender. Bowel sounds normal. EXTREMITIES: Showed no edema. Distal pulses palpable. SKIN: Warm and dry. No cyanosis, no clubbing. RECTAL: Deferred. [place], [place] REPORT OF CONSULTATION NAME: NEIL TUTTLE UNIT #: [id number] ROOM: [facility] DOCTOR: SUKI ROBERTS,MANUEL BIRTHDATE: [birth year] GENITOURINARY: Deferred. REVIEW OF THE DIAGNOSTIC TESTS: EKG showed atrial fibrillation with old anterior infarction, cardiac troponins negative x 3. Her CBC, chemistry reviewed. IMPRESSION: 1. Chest pain, atypical, myocardial infarction ruled out. 2. Chronic atrial fibrillation with controlled ventricular rate. 3. Valvular heart disease with mitral, tricuspid and aortic regurgitation. 4. Moderate pulmonary hypertension. 5. Hypertension. 6. Urinary tract infection. 7. Dyslipidemia. 8. Dementia. RECOMMENDATIONS: 1. Continue current medications, today her blood pressure is low and her atenolol was discontinued. 2. Continue Xarelto for anticoagulation. 3. There is no family at bedside at the time of examination. 4. Cardiology will sign off and will see as needed. MANUEL COHN MD CM:CONSTR:REPORT OF CONSULTATION 04 07/30/18 1338 interface
--- NOTE | ~2018-07-26 | PR ---
[place], [place] PROGRESS NOTE [id number] #: [id number] ROOM: 317 DOCTOR: KIM GARCIA MD BIRTHDATE: [birth year] DOS: 07/29/2018 SUBJECTIVE: The patient is hypotensive and feels better with oxygen. The patient's pressure sensation in the chest evaluated by administration vice president. OBJECTIVE: VITAL SIGNS: Blood pressure 98/60, heart rate of 72 beats per minute, afebrile, breathing 16 times per minute. GENERAL APPEARANCE: The patient is alert and oriented x 3, in no visible distress, except for generalized weakness. HEENT AND NECK: Exam within normal limits. CARDIOVASCULAR SYSTEM: Heart rate is regular in rate and rhythm. S1 and S2 normally audible. LUNGS: Clear to auscultation. ABDOMEN: Soft, nontender. No obvious organomegaly. Bowel sounds are present. EXTREMITIES: Without significant cyanosis or edema. IMPRESSION AND PLAN: 1. The patient with brief psychotic disorder, doing better with treatment with memantine, rivastigmine. 2. Some chest pressure. The patient stays on isosorbide, already evaluated by Cardiology. 3. Hypotension, apparently from eating less. The patient's clonidine and Tenormin have been stopped. 4. Coronary artery disease of the [place] vessels. The patient remains on isosorbide, now symptom free with oxygen. Cardiac enzymes were performed and are negative. 5. Mixed hyperlipidemia, treated with simvastatin. 6. Benign essential hypertension. The patient presently hypotensive and her medications have been reduced. 7. Recent urinary tract infection, treated with cephalosporins. 5. Late onset Alzheimer's type dementia, being treated and followed. KIM GARCIA MD CM:PNTRANS [phone] KIM GARCIA MD 07/29/182105 interface
--- NOTE | ~2018-07-26 | DS ---
[place], [place] DISCHARGE SUMMARY NAME: NEIL TUTTLE [facility] #: [id number] UNIT #: [id number] ROOM: 314 DOCTOR: KARINA MORLEY MD BIRTHDATE: [birth year] DOS: 08/01/2018 CHIEF COMPLAINT: "Oh, I hope I get to go home soon." HISTORY OF PRESENT ILLNESS: This is an 88-year-old white female who was initially admitted by Dr. Alina Webb to the medical floor at [facility]. She was admitted due to a significant change in mental status. The patient had been living at [facility] and was discharged home. After being at home for short time, the patient did have a sudden mental status change and was found to have gram-negative bacteria in her urine and was diagnosed with an encephalopathy. She was admitted to the medical floor and treated, but her confusion persisted as did psychotic symptoms and the patient was actively responding to auditory hallucinations. She was not able to attend her ADLs on the medical floor and required a great deal of assistance. Because of this mental status change, it was felt that an inpatient psychiatric stabilization was warranted. The patient was admitted then to the [facility] to rule out further organic factors and to attempt to stabilize on medication. SUMMARY OF HOSPITAL COURSE: The patient was admitted to the psychiatric floor where she was immediately started on Exelon patch 4.6 mg a day. Because of significant confusion and memory issues, this was augmented later with Namenda 5 mg a day. Risperdal 0.5 mg twice daily was added to decrease the psychosis. Gradually, her Exelon patch was increased from 4.6 to 13.3 mg a day and the Namenda was stabilized at 5 mg twice a day. With this combination of medications, the patient greatly improved. The hallucinations completely dissipated. She slept well, ate well, attended to her own ADLs. She was able to engage readily in group and voiced very positive plans for the future. Her confusion dissipated and she became much clear. She voiced a willingness and a readiness to return home. MENTAL STATUS AT DISCHARGE: The patient is alert and oriented to person, place and very approximate to time. Mood does seem to be euthymic. Affect appropriate. There is no negrito, hypomania or psychosis. Short-term memory has mild gaps, otherwise she is intact. FINAL DIAGNOSES: Brief psychotic disorder and Alzheimer's dementia. DISPOSITION: All of her prescriptions have been E-scribed to [facility] At the time of discharge, she is medically and psychiatrically stable. [place], [place] DISCHARGE SUMMARY NAME: NEIL TUTTLE UNIT #: [id number] ROOM: [facility] DOCTOR: KARINA MORLEY MD BIRTHDATE: [birth year] KARINA MORLEY MD CM:DISCHARG [id number] KARINA MORLEY MD 08/01/18 1006 interface
--- NOTE | ~2018-07-26 | PR ---
[place], [place] PROGRESS NOTE [id number] #: [id number] ROOM: 317 DOCTOR: KARINA MORLEY MD BIRTHDATE: [birth year] DOS: 07/29/2018 INTERVAL NOTE CHIEF COMPLAINT: "I am feeling better, thank you for asking. Thank you for everything you have done." SUMMARY OF THE VISIT: The patient was interviewed as she was sitting in the back of the dining area. She had already eaten her breakfast and was sipping on coffee. She engaged readily in conversation, was bright and pleasant and cheerful with a smile on her face. She nodded in approval and noted no complaints. She does report good sleep and appetite and notes no side effects from the medications. MENTAL STATUS: She is alert and oriented with some time gaps. Mood does seem to be strongly trending towards euthymia. Affect is more appropriate. There is no negrito, hypomania or psychosis. Short-term memory has mild gaps, but otherwise she is relatively fully intact. PLAN: I will continue to titrate up her Namenda, bringing it from 5 mg to 5 mg twice daily, engage in individual and garcia milieu activities, returning to the least restrictive environment when psychiatrically stable. KARINA MORLEY MD CM:PNTRANS [phone] KARINA MORLEY MD 07/29/18 1211 interface
--- NOTE | ~2018-07-26 | PR ---
[place], [place] PROGRESS NOTE [id number] UN[facility] #: [id number] ROOM: 314 DOCTOR: KIM GARCIA MD BIRTHDATE: [birth year] DOS: 07/31/2018 SUBJECTIVE: The patient is doing well, asymptomatic. No psychotic features. No hallucinations anymore. She is doing well and starting to eat better. OBJECTIVE: VITAL SIGNS: Blood pressure 134/62, heart rate of 90 beats per minute, breathing normally at 18 times per minute, afebrile. GENERAL APPEARANCE: The patient is alert and oriented x 3, in no visible distress. HEENT AND NECK: Exam within normal limits. CARDIOVASCULAR SYSTEM: Heart rate is regular in rate and rhythm. S1 and S2 normally audible. LUNGS: Clear to auscultation. ABDOMEN: Soft, nontender. No obvious organomegaly. Bowel sounds are present. EXTREMITIES: Without significant cyanosis or edema. IMPRESSION AND PLAN: 1. Benign essential hypertension with lower blood pressures and all her antihypertensive medicines including clonidine, Tenormin and lisinopril were stopped and blood pressures are staying normal. 2. Coronary artery disease of twenty-nine palms vessels, without chest pains. The patient remains on isosorbide. 3. Chronic atrial fibrillation. The patient's heart rates are controlled. The patient is anticoagulated with Xarelto. 4. Late onset Alzheimer's type dementia, being treated with rivastigmine and memantine by Dr. Briceño and behavioral issues controlled with risperidone. 5. Mixed hyperlipidemia, treated with simvastatin. 6. Hypothyroidism, replaced with levothyroxine. 7. Dr. Briceño plans to discharge the patient to home tomorrow to follow up at our office within a week. KIM GARCIA MD CM:PNTRANS [phone] KIM GARCIA MD [id number]/31/[id number] interface
--- NOTE | ~2018-07-26 | PR ---
[place], [place] PROGRESS NOTE [id number] UN[facility] #: [id number] ROOM: 317 DOCTOR: KARINA MORLEY MD BIRTHDATE: [birth year] DOS: 07/30/2018 CHIEF COMPLAINT: "I hope I get to go home soon." SUMMARY OF THE VISIT: The patient was interviewed in the dining area where she was sitting with some female peers. She stopped and engaged readily in conversation, smiling and joking with me. When I did discuss with her that I was hoping discharge would be eminent, she smiled and joked back with me. She reports sleeping better, eating better and in general feeling much better than she had prior to her admission here to the hospital. She convincingly denies medication side effects. MENTAL STATUS: She is alert and oriented with only mild time gaps. Mood does seem to be strongly trending towards euthymia. Affect is much more appropriate. There is no negrito or hypomania. There is no gross psychosis. Short term, intermediate and long-term memories are relatively intact. PLAN: I will maintain her current psychotropic regimen, engage in individual and garcia milieu activity, returning to the least restrictive environment when psychiatrically stable. KARINA MORLEY MD CM:PNTRANS [id number] KARINA MORLEY MD 07/30/18 1524 interface
--- NOTE | ~2018-07-26 | PR ---
[place], [place] PROGRESS NOTE NAME: NEIL TUTTLE [facility] #: [id number] UNIT #: [id number] ROOM: 314 DOCTOR: RADHA ROBERTS,KIM Guajardo BIRTHDATE: [birth year] DOS: 07/28/2018 SUBJECTIVE: The patient complaining of some pressures in her chest and shortness of breath this morning, started on oxygen. OBJECTIVE: VITAL SIGNS: Blood pressure 140/84, heart rate of 83 beats per minute, afebrile, breathing normally. IMPRESSION: 1. Chest pressures from uncertain etiology. I will check her cardiac enzymes. Consult Cardiology and get a stat EKG. The patient is symptom free now. 2. Brief psychotic disorder, being treated and followed. The patient on Risperdal now by Dr. Briceño. 3. Late onset Alzheimer's type dementia, treated with Exelon and Namenda now. 4. Generalized adult failure to thrive. The patient working with Physical Therapy. 5. Mixed-type hyperlipidemia, treated with simvastatin. 6. Benign essential hypertension, treated and controlled. The patient on clonidine and atenolol. 7. Urinary tract infection, treated with cephalosporins. KIM GARCIA MD CM:PNTRANS [id number] KIM GARCIA MD 08/01/18 0942 interface
[~2018-07-26 11:14] MED LIST changes: +CLONIDINE0.2 MG PO; +FUROSEMIDE20 M1 PO; +HYDROXYZINE PAM25 M1 PO; +POTASSIUM CHLO10 MEQ PO; +RISPERIDONE1 MG PO; +RIVASTIGMINE1 EACH T; +VITAMIN D250 MCG PO; +VITAMIN D31000 UNI1 PO; +VITAMIN D350000 UNIT PO; +VITAMIN D5000 UNIT PO; +VITAMIN D50000 UNIT PO; +[UNRECOGNIZED DRUG - OTHER] PO
--- NOTE | 2018-07-26 13:47 | NUR ---
ADVISED OF COMPETANCY CONSULT NEEDED.
[2018-07-26 14:01] VITALS: BP 111/63
--- NOTE | 2018-07-26 15:06 | NUR ---
PHYSICAL THERAPY Nursing screen received. PT orders also received. Thank you. Sowmya Urrutia,PT
--- NOTE | 2018-07-26 15:11 | NUR ---
Discussed case with son, Teddy Ansari, . He would like to speak with meeting planner prior being discharged to a nursing facility. He wants to be involved in her care and would like for her not to be placed in a LTC facility. paraplanner notified.
--- NOTE | 2018-07-26 15:31 | NUR ---
DR. CHRISTY CALLED TO NOTIFIED OF NEW PATIENT ON UNIT TO REVIEW MEDICATIONS. PATIENT WILL CONTINUE UNDER TO CARE OF DR. CHRISTY. PATIENT IS ALERT AND ORIENTED TO PERSON, PLACE, TIME AND SITUATION; ABLE TO VOICE NEEDS. PATIENT COOPERATIVE DURING ASSESSMENT. DR. PABLO ON UNIT TO ASSESS PATIENT. MOOD IS SLIGHTLY DEPRESSED. DENIES ANY HALLUCINATIONS, DELUSIONS, HI/SI OR PAIN. 1 PERSON ASSIST, STAND BY ASSIST. CONTINENT OF BOWEL AND BLADDER WITH EPISODES OF BLADDER INCONTINENCE. SET UP FOR MEALS. Q 15 MINUTE SAFETY CHECKS MAINTAINED. CONTINUE TO MONITOR FOR INCREASED CONFUSION; PROVIDE ONE ON ONE AND REORIENT TO REALITY NEEDED.
--- NOTE | 2018-07-26 15:44 | NUR ---
PM GROUP/RELAXATION TECHNIQUES PT HAD JUST BEEN ADMITTED TO THE UNIT AND WAS BROUGHT INTO GROUP THERPAY WITH ONLY 20 MINUTES LEFT. PT WAS WILLING TO TALK AND ANSWER MY QUESTIONS BUT I WILL FORMALLY ASSESS PT AND SET GOALS TOMORROW.
--- NOTE | 2018-07-26 15:56 | NUR ---
DR. GARCIA CALLED, PATIENT WILL BE UNDER THE CARE OF DR. GARCIA WHILE HERE IN THE HOSPITAL.
--- NOTE | 2018-07-26 16:23 | NUR ---
Shift chart check completed.
--- NOTE | 2018-07-26 17:20 | NUR ---
Established rapport with pt and responded when pt requested help and utilized self advocacy skills. Plan is to complete PSA tomorrow with pt as pt wanted to rest after nursing assessment.
--- NOTE | 2018-07-26 17:47 | NUR ---
P: PATIENT VOICING HALLUCINATIONS-STATING TO NURSING STAFF, "DID YOU SEE THAT BIG ORANGE THING UP ON THE BUILDING" I: PATIENT ORIENTED AND ONE ON ONE PROVIDED R: EFFECTIVE P: CONTINUE TO PROVIDE ONE ON ONE, REDIRECTION AND REORIENTATION.
--- NOTE | 2018-07-26 19:21 | NUR ---
ON UNIT AT THIS TIME TO SEE PATIENT. NNO RECIEVED.
[2018-07-26 19:49] VITALS: BP 130/74
--- NOTE | 2018-07-26 23:37 | NUR ---
PATIENT ALERT AND ORIENTED X3 WITH CONFUSION. MOOD STABLE, DEPRESSED AT TIMES. PT CALM, COOPERATIVE, ABLE TO MAKE NEEDS KNOWN. SAT IN DINING AND HAD HS SNACK WITH PEERS AND WATCHED TV. MEDICATION COMPLIANT WITHOUT DIFFICULTY AFTER REVIEW. DENIES SI/HI AND HALLUCINATIONS, NO NOTED RESPONDING TO INTERNAL STIMULI. NO PARANOIA/DELUSIONS OBSERVED. NO PHYSICAL COMPLAINTS VOICED. PATIENT CURRENTLY LAYING DOWN WITH EYES CLOSED, RESPIRATIONS EASY AND REGULAR, ON 2L NC PRN REQUESTED. NO SIGNS OR SYMPTOMS OF DISTRESS NOTED. MAINTAIN Q 15 MIN SAFETY CHECKS.
--- NOTE | 2018-07-27 00:08 | NUR ---
24 HOUR CHART CHECK COMPLETED.
--- NOTE | 2018-07-27 06:17 | NUR ---
PATIENT OBSERVED ON Q 15 MIN CHECKS TO HAVE SLEPT APPROX 4 HOURS WITH MULTIPLE AWAKENINGS DURING STAFF CHECKS OF PATIENT SITTING UP IN BED QUIETLY. NO SIGNS OR SYMPTOMS OF DISTRESS NOTED.
[2018-07-27 07:22] LABS: BASO % 0.3 % (0.0-1.0); EOS # 0.2 10*3/uL (0.0-0.4); EOS % 2.3 % (1.0-4.0); HEMATOCRIT 40.9 % (37.0-47.0); HEMOGLOBIN 12.7 g/dl (12.0-16.0); LYMPH % 42.4 % (27.0-41.0); MEAN CELL VOLUME 104.6 fl (81.0-99.0); MEAN CORPUSCULAR HGB 32.5 pg (27.0-31.0); MEAN CORPUSCULAR HGB CONC 31.1 g/dl (33.0-37.0); MEAN PLATELET VOLUME 11.8 fl (9.6-12.3); MONO # 0.6 10*3/uL (0.1-1.0); MONO % 8.9 % (3.0-9.0); NEUT # 3.3 10*3/uL (2.3-7.9); NEUT % 45.7 % (47.0-73.0); PLATELET COUNT AUTOMATED 136 10*3/uL (130-400); RED BLOOD COUNT 3.91 10*6/uL (4.10-5.10); RED CELL DISTRI WIDTH 14.7 % (0-14.5); WHITE BLOOD COUNT 7.1 10*3/uL (4.8-10.8)
--- NOTE | 2018-07-27 07:45 | NUR ---
PT AWAKE, ALERT, RESPS EASY AND EVEN ON ROOM AIR. AWAITING BREAKFAST AT THIS TIME.
[2018-07-27 07:54] VITALS: BP 126/83
--- NOTE | 2018-07-27 08:10 | NUR ---
Treatment Plan meeting with Dr. Briceño, RN, AT and General Manager In Training. Plan for discharge next week. Pt. is a [place] resident who lived at home. Will reach out to Patient Son and discuss discharge Planning.
[2018-07-27 08:28] LABS: ALBUMIN 2.8 gm/dl (3.1-4.5); BUN 35 mg/dl (7-24); CHLORIDE 112 mmol/L (98-107); CHOLESTEROL 100 mg/dL (<200); HDL CHOLESTEROL 29 mg/dl (40-60); LDL CHOLESTEROL 48 mg/dL (9-159); POTASSIUM 3.7 mmol/L (3.5-5.1); SGOT/AST 28 IU/L (3-35); SGPT/ALT 38 U/L (12-78); SODIUM 147 mmol/L (136-145); TRIGLYCERIDES 115 mg/dl (<150); VLDL CHOLESTEROL 23 mg/dL (6-40)
[2018-07-27 08:29] LABS: ALKALINE PHOSPHATASE 92 U/L (45-117); TOTAL PROTEIN 5.8 gm/dL (6.4-8.2)
[2018-07-27 08:36] LABS: VITAMIN D, 25-HYDROXY 127.9 ng/mL (30-100)
--- NOTE | 2018-07-27 08:56 | NUR ---
ON UNIT TO SEE PT AT THIS TIME, UPDATE GIVEN.
--- NOTE | 2018-07-27 10:40 | NUR ---
PHYSICAL THERAPY PAtient at group. Sowmya Urrutia,PT
--- NOTE | 2018-07-27 10:40 | NUR ---
Patient not available for Occupational Therapy evalaution as she is in group session. Abigail Shin OTR/l
--- NOTE | 2018-07-27 11:55 | NUR ---
AM GROUP/FOCUS DISCUSSION AND LIGHT THERAPY PT ATTENDED GROUP AND PARTICIPATED IN ALL ACTIVITES. NO CONFUSION WAS NOTED IN PT AT ALL, PT PARTICIPATED IN DISCUSSION AND CONVERSATION WAS IN CONTEXT, RELAVENT AND KNOWLEDGABLE. PT EXPRESSED NO HALLUCINATIONS DURING GROUP.
--- NOTE | 2018-07-27 12:14 | NUR ---
PSA completed with collateral information from son and friend. Friend-Angeli will visit [facility] and then leave town in the morning until the . Collaborated with meeting planner who indicated that Franco Uribe deemed pt competent and said her return home with supports is the plan. Updated on info from friend and son.
--- NOTE | 2018-07-27 13:00 | NUR ---
Occupational Therapy evaluation completed on 3 with full eval to follow. Precautions include fall risk,w/c v.s ww used currently, 3N unit precautions,low complexity level 70430 via chart review, testing and evaluation. Recommend OT per POC and SNF/ 24 hr supervision and assist upon d/c. Thank you. Abigail Shin OTR/l
--- NOTE | 2018-07-27 13:46 | NUR ---
PHYSICAL THERAPY Patient evaluated on 3, full evaluation to follow. Continue with PT as per plan of care with fall,UNIT THREE AND acute debility precautions. SNF [facility] (a) AND ,[facility] RN, PT AND AIDES. PAtient is moderate complexity via chart review, tests and evaluation: 57103. Thank you for this referral. Sowmya Urrutia,PT
--- NOTE | 2018-07-27 14:26 | NUR ---
P- STABLE MOOD. I- ORIENTATION, MOOD AND BEHAVIOR ASSESSED. ASSESSED PT FOR SI/HI, INTENT OR PLAN. ASSESSED PT FOR S/S HALLUCINATIONS, PARANOIA AND/OR DELUSIONS. MEDICATIONS ADMINISTERED PER PHYSICIAN'S ORDERS. ASSISTANCE WITH ADL CARE PROVIDED NEEDED. ENCOURAGED PT TO ATTEND AND PARTICIPATE IN [facility] GROUPS AND ACTIVITIES. R- PT IS ALERT AND ORIENTED X 4. MEMORY APPEARS TO BE INTACT. RESPS EASY AND EVEN ON ROOM AIR. MOOD IS STABLE, AFFECT IS BROAD RANGE AND APPROPRIATE. SPEECH IS WNL AND COHERENT, ABLE TO MAKE NEEDS KNOWN WITHOUT DIFFICULTY. PT DENIES SI/HI, INTENT OR PLAN. PT DENIES CURRENT HALLUCINATIONS, PT DOES ADMIT TO PREVIOUSLY SEEING THINGS THAT WEREN'T THERE BUT STATES "I HAVEN'T HAD ANY OF THAT TODAY". PT AGREED TO ALERT STAFF IF SHE BEGINS TO NOTICE SHE IS SEEING THINGS AGAIN. PT IS CALM, PLEASANT AND COOPERATIVE, POSITIVE INTERACTIONS NOTED WITH BOTH STAFF AND PEERS. MEDICATION COMPLIANT WITHOUT DIFFICULTY. STAFF ASSIST X1 PROVIDED FOR ADL CARE NEEDED. PT HAS ATTENDED AND PARTICIPATED IN GROUPS AND ACTIVITIES THIS DATE. P- PLAN TO CONTINUE CURRENT TREATMENT, CONTINUE TO MONITOR MOOD AND BEHAVIORS; PROVIDE APPROPRIATE REORIENTATION, REDIRECTION AND 1:1 NEEDED. CONTINUE TO ENCOURAGE MEDICATION COMPLIANCE WELL GROUP ATTENDANCE AND PARTICIPATION.
--- NOTE | 2018-07-27 14:50 | NUR ---
Nursing screen received and Occupational Therapy referral received. Thank you. Abigail Gonzalez OTR/l
--- NOTE | 2018-07-27 15:47 | NUR ---
PM GROUP/WATERCOLOR PAINTING PT ATTENDED GROUP BUT DECLINED WORKING ON A PAINTING DUE TO "BAD EYES" PT WAS GIVEN CHEATERS TO TRY BUT SAID THAT SHE STILL COULDN'T SEE THE PAPER. PT WAS QUIET AND OBSERVED PEERS PAINTING. PT WOULD OCCATIONALLY COMPLIMENT PEERS ON THEIR WORK. PT EXPRESSED NO HALLUCINATIONS DURING GROUP.
[2018-07-27 19:53] VITALS: BP 108/63
--- NOTE | 2018-07-27 23:45 | NUR ---
PATIENT ALERT WITH CONFUSION. PATIENT WITH SHORT TERM AND MEDICAL SUPPLY TECHNICIAN MEMORY DEFICITS. PATIENT WITH NO RESPIRATORY DISTRESS. PATIENT WITH NO HALLUCINATIONS OR DELUSIONS. PATIENT WITH NO SUICIDAL OR HOMICIDAL IDEATIONS. PATIENT CONTINUES ON CEFTIN. NO ADVERSE REACTION NOTED. PATIENT IS MEDICATION COMPLIANT. PATENT WITH O2 AT 2L AT HS VIA NASAL CANNULA PER PATIENT REQUEST. SEE [facility] SHEET FOR SPECIFIC MONITORING
--- NOTE | 2018-07-28 00:56 | NUR ---
24 HR chart check completed.
--- NOTE | 2018-07-28 05:56 | NUR ---
PATIENT SLEPT 6-7 HOURS OF INTERRUPTED SLEEP THROUGHOUT SHIFT. Q 15 MINUTE CHECKS MAINTAINED
--- NOTE | 2018-07-28 07:10 | NUR ---
PHYSICAL THERAPY Patient seen this am for therapy visit and was sitting up EOB with OT assistant center manager present upon therapist arrival. Patient presented with PRN O2-2L via NC which she uses mostly at while sleeping overnight. OT assistant center manager was present for observation only during RUBBER WASHER visit and voices no new c/o's at this time. Patient transfers sit to stand Min A and ambulates with use of wh walker, CGA, 75'x 1, demonstrating slow terell, "slouched" upright posture and decreased stride. Patient able to take 5-6 steps backwards, requiring v/c for safe step sequence and unsteady balance / walker safety while completing 90/180 turns. Patient returned to activity room chair at table awaiting breakfast, under [facility] staff Supervision. Will continue per POC as tolerated, total treatment time 14 minutes. Vimal Courtney, RUBBER WASHER
--- NOTE | 2018-07-28 07:25 | NUR ---
OT NOTE Pt was seen this A.M. 1:1 for 25 minute OT session with ROVING OR YARN COLOR CHECKER and nursing staff present for observation only. Upon arrival pt was supine in bed. Pt identified by name and and had no complaints at this time. Pt presented to therapy with 2L-O2 via NC, however pt's nurse came in and removed stating it is used at night time only. Pt transferred supine to sit EOB with Elijah for assist with UB. While sitting EOB pt donned socks and pants with CGA after set-up and shirt with SBA after set-up. Sit to stand completed from bed level with Elijah and use of w/w for UE support. Functional mobility completed into the bathroom with CGA and use of w/w for UE support. There she transferred on/off standard commode with CGA. Clothing management completed with CGA and toilet hygiene completed with distant supervision while seated. Pt then stood sink side while washing her hands with CGA. Throughout activities pt required verbal prompts for pursed lip breathing technique. Pt was left sitting upright in the dining room under [facility] staff supervision. Continue with rec D/C plan to SNF or 24 hour supervision/assist. SHAD Philippe/Madiha
[2018-07-28 07:47] VITALS: BP 140/84
--- NOTE | 2018-07-28 08:30 | NUR ---
Treatment Plan meeting with Dr. Briceño, RN, AT, and Sales Development Associate. Plan for discharge Next week. Pt. resides at home and lives in an apartment on the second floor of [facility] [facility] [address]. Pt. has [facility] and Aide Service. Will reach out to [facility] to arrange Meals on Wheels.
--- NOTE | 2018-07-28 10:25 | NUR ---
Collaborated in tx team regarding d/c plan. Received return call from My-pts sister in law and explained the visitation policy and hours and clarified her level of participation especially at discharge and with transportation. My stated she is willing to provide transportation at discharge and discussed same with pt who also talked to My with this typewriter assembly and parts inspector. Spoke with Crissy who stated she was not feeling that good today and nurses were already supporting her with her nausea. Pt reported her eyeglasses are missing and she cannot see very well. Provided support and reassurance. Called CM from medical floor and asked about any knowledge of pts glasses. Called [place] and spoke with Renay about eyeglasses and they will check and see if she left anything. Spoke with My regarding the eyeglasses and she indicated Angeli had pts purse and keys and pt will need those for d/c too but My is not sure about the eyeglasses. My plans to come visit pt today. Provided Catrachita's number who is the tenant who helps support pt sometimes. Discussed aftercare with equipment planner regarding home health supports and ride.
--- NOTE | 2018-07-28 11:36 | NUR ---
DR. GARCIA ON UNIT TO ASSESS PATIENT. PATIENT COMPLAINING THAT CHEST FEELS HEAVY, NO PAIN. PATIENT LUNGS CLEAR. RESPIRATIONS ARE NON LABORED. 94% ON ROOM AIR. PRN 02 APPLIED AT 2 LITERS FOR COMFORT. NEW ORDER PLACED FOR STAT EKG PER DR. GARCIA VERBAL ORDER.
--- NOTE | 2018-07-28 11:47 | NUR ---
AM GROUP/EXERCISE AND DISCUSSION PT DID NOT ATTEND AFTERNOON GROUP THERAPY. PT STAYED IN DAY ROOM WITH MENTAL HEALTH WORKER.
--- NOTE | 2018-07-28 15:49 | NUR ---
PM GROUP/BINGO! PT WAS PRESENT FOR AFTERNOON GROUP THERAPY AND ENCOURAGED TO PLAY BINGO BUT CHOSE NOT TO. PT SAT AND OBSERVED PEERS PLAYING AND DID TRY TO LOOK AT THE NEWSPAPER. PT EXPRESSED NO VISUAL HALLUCINATIONS DURING GROUP. PT WILL CONTINUE TO ATTEND AND PARTICIPATE IN GROUP THERAPY.
--- NOTE | 2018-07-28 16:14 | NUR ---
Orders received for Home Health from Dr. Donovan Briceño. Pt. previously had [facility]. Will resume at discharge. Faxed Clinical and Order for Home Health [phone].
--- NOTE | 2018-07-28 18:52 | NUR ---
PATIENT IS ALERT AND ORIENT TO PERSON, PLACE AND SITUATION WITH CONFUSION; ABLE TO VOICE NEEDS. MOOD IS STABLE, PLEASANT DEMEANOR. PATIENT SITTING IN DINNING ROOM, RESPIRATIONS ARE EASY, NON LABORED 94% ON 2 LITERS. NO COMPLAINTS OF PAIN OR CHEST DISCOMFORT. DENIES ANY HALLUCINATIONS, DELUSIONS, HI/SI. 1 PERSON ASSIST WITH ACTIVITIES OF DAILY LIVING, INCONTINENT OF BLADDER, CONTINENT OF BOWEL. SET UP FOR MEALS, INTAKES ARE GOOD WITH ADEQUATE FLUIDS. AMBULATORY USING WALKER WITH ASSIST. MEDICATION COMPLAINT WITH EDUCATION PROVIDED. Q 15 MINUTE SAFETY CHECKS MAINTAINED. CONTINUE TO MONITOR FOR CONFUSION AND HALLUCINATIONS. PROVIDE ONE ON ONE, REDIRECTION/ORIENTATION.
--- NOTE | 2018-07-28 20:29 | NUR ---
DR BEAL SHAKE PACKER SERVICE CALLED ABOUT CONSULT FOR CHEST PAIN. DR WHITNEY SHAKE PACKER AND STATED "DR BEAL IS OUT OF THE COUNTRY UNTIL TUESDAY AND I DO NOT GO TO [facility]".
--- NOTE | 2018-07-28 20:33 | NUR ---
DR GARCIA CALLED AND UPDATED ABOUT RESEARCH LIBRARIAN CONSULT. DR GARCIA WITH ORDER TO CONSULT DR CUEVAS FOR PATIENT CONSULT FOR CHEST PAIN
[2018-07-28 20:36] VITALS: BP 107/89
--- NOTE | 2018-07-28 20:48 | NUR ---
DR FANTA CUEVAS ANSWERING SERVICE CALLED AND LEFT A MESSAGE FOR CONSULT FOR CHEST PAIN FOR PATIENT
--- NOTE | 2018-07-28 20:55 | NUR ---
DR COHN ART INSTALLER FOR DR CUEVAS RETURNED CALL. DR COHN TO COME IN TO SEE PATIENT IN THE MORNING
--- NOTE | 2018-07-28 23:45 | NUR ---
PATIENT ALERT AND ORIENTED WITH PERIODS OF CONFUSION. PATIENT WITH SHORT TERM AND SMEARER MEMORY DEFICITS. PATIENT WITH NO RESPIRATORY DISTRESS. PATIENT WITH NO HALLUCINATIONS OR DELUSIONS. PATIENT WITH NO SUICIDAL OR HOMICIDAL IDEATIONS. PATIENT CONTINUES ON CEFTIN. NO ADVERSE REACTION NOTED. PATIENT IS MEDICATION COMPLIANT. PATENT WITH O2 AT 2L AT HS VIA NASAL CANNULA AND STATES "I FEEL A LITTLE BETTER NOW. I DIDN'T FEEL SO GOOD EARLIER". SEE U SHEET FOR SPECIFIC MONITORING
--- NOTE | 2018-07-29 04:40 | NUR ---
24 HR chart check completed.
--- NOTE | 2018-07-29 05:44 | NUR ---
PATIENT SLEPT >7 HOURS UNINTERRUPTED THROUGHOUT SHIFT. Q 15 MINUTE CHECKS MAINTAINED
--- NOTE | 2018-07-29 07:45 | NUR ---
PT AWAKE, ALERT, EATING BREAKFAST INDEPENDENTLY IN DINING ROOM WITH PEERS. PT SMILED AT THIS NURSE UPON APPROACH. STATES SHE FEELS BETTER TODAY THAN YESTERDAY. PT DENIES ANY CHEST DISCOMFORT AT THIS TIME. RESPS EASY AND EVEN ON 2L VIA NC. ON UNIT TO SEE PT AT THIS TIME, UPDATE PROVIDED.
[2018-07-29 07:54] VITALS: BP 117/66
[2018-07-29 10:05] VITALS: BP 108/60
--- NOTE | 2018-07-29 10:22 | NUR ---
CALL PLACED TO MADE AWARE PT BP MANUALLY THIS MORNING IS 108/60 HR 72. MADE AWARE PT IS DUE TO RECIEVE ATENOLOL 100MG, LISINOPRIL 40MG AND IMDUR 30MG THIS AM WITH ROUTINE MEDICATIONS. STATES TO DISCONTINUE ATENOLOL, GIVE IMDUR 30MG THIS AM, HOLD LISINOPRIL AT THIS TIME AND RECHECK BLOOD PRESSURE AFTER LUNCH TO REASSESS NEED FOR LISINOPRIL LATER IN THE DAY. CONVERSATION WITNESSED BY 2ND RN LASHAUN
--- NOTE | 2018-07-29 11:49 | NUR ---
ON UNIT TO SEE PT AT THIS TIME, ASSESSED PT, STATES HE HAS REVIEWED PT'S EKG AND PREVIOUS TESTS, NO NEED FOR FURTHER TESTING. MADE AWARE OF BP THIS AM 108/60 HR 72 - MADE AWARE OF ORDERS GIVEN BY INCLUDING DISCONINUATION OF ATENOLOL. STATES TO HOLD LINSOPRIL FOR TODAY.
--- NOTE | 2018-07-29 12:21 | NUR ---
AM GROUP/EXERCISES/ART/COPING PT ATTENDED AND PARTICIPATED TO BEST OF ABILITY. PT ASKED FOR HELP CUTTING AND WRITIJNG FOR ART PROJECT. PT PAINTED AND DID WHAT SHE COULD. PT PLEASANT AND ON TASK WITH NO COMPLAINTS OR HALLUICINATIONS. PT WILL CONTINUE TO ATTEND AND PARTICIPATE IN GROUP TO BEST OF ABILITY.
--- NOTE | 2018-07-29 15:26 | NUR ---
P- STABLE MOOD. I- ORIENTATION, MOOD AND BEHAVIOR ASSESSED. ASSESSED PT FOR SI/HI, INTENT OR PLAN. ASSESSED PT FOR S/S HALLUCINATIONS, PARANOIA AND/OR DELUSIONS. MEDICATIONS ADMINISTERED PER PHYSICIAN'S ORDERS. ASSISTANCE WITH ADL CARE PROVIDED NEEDED. ENCOURAGED PT TO ATTEND AND PARTICIPATE IN [facility] GROUPS AND ACTIVITIES. R- PT IS ALERT AND ORIENTED X 4. MEMORY APPEARS TO BE INTACT. RESPS EASY AND EVEN ON ROOM AIR. MOOD IS STABLE, AFFECT IS BROAD RANGE AND APPROPRIATE. SPEECH IS WNL AND COHERENT, ABLE TO MAKE NEEDS KNOWN WITHOUT DIFFICULTY. PT DENIES SI/HI, INTENT OR PLAN. PT DENIES HALLUCINATIONS, NO RESPONSE TO INTERNAL STIMULI NOTED. PT IS CALM, PLEASANT AND COOPERATIVE, POSITIVE INTERACTIONS NOTED WITH BOTH STAFF AND PEERS. MEDICATION COMPLIANT WITHOUT DIFFICULTY. STAFF ASSIST X1 PROVIDED FOR ADL CARE NEEDED. PT HAS ATTENDED AND PARTICIPATED IN GROUPS AND ACTIVITIES THIS DATE. P- PLAN TO CONTINUE CURRENT TREATMENT, CONTINUE TO MONITOR MOOD AND BEHAVIORS; PROVIDE APPROPRIATE REORIENTATION, REDIRECTION AND 1:1 NEEDED. CONTINUE TO ENCOURAGE MEDICATION COMPLIANCE WELL GROUP ATTENDANCE AND PARTICIPATION.
[2018-07-29 15:31] VITALS: BP 98/60
--- NOTE | 2018-07-29 18:00 | NUR ---
ON UNIT TO SEE PT AT THIS TIME, UPDATED ON VISIT FROM AND BLOOD PRESSURE REASSMENT OF 98/60 MANUAL THIS AFTERNOON.
[2018-07-29 19:10] VITALS: BP 113/62
--- NOTE | 2018-07-30 05:08 | NUR ---
A&O X4. STABLE MOOD. CALM AND COOPERATIVE. NO HALLUCINATIONS OR DELUSIONS NOTED. NO SI/HI NOTED. FALL PRECAUTIONS MAINTAINED. Q15 MINUTE SAFETY CHECKS MAINTAINED. MEDICATION COMPLIANT WITHOUT DIFFICULTY. MEDICATION EDUCATION PROVIDED. PT SLEPT APPROXIMATELY 7 HOURS THIS SHIFT. SEE [facility] FLOWSHEET FOR SPECIFIC MONITORING.
--- NOTE | 2018-07-30 05:30 | NUR ---
24 HR chart check completed.
[2018-07-30 07:48] VITALS: BP 115/69
--- NOTE | 2018-07-30 08:17 | NUR ---
ON UNIT TO SEE PT AT THIS TIME, UPDATE GIVEN.
--- NOTE | 2018-07-30 09:47 | NUR ---
PRN MOM 30ML PO GIVEN AT THIS TIME PER PT REQUEST FOR C/O CONSTIPATION. WILL MONITOR FOR EFFECTIVENESS.
--- NOTE | 2018-07-30 16:44 | NUR ---
PM GROUP/BIRDHOUSES/LEISURE PT ATTENDED AND PARTICIPATED DURING GROUP. PT PLEASANT AND ON TASK. PT DID NOT EXPRESS ANY HALLUCINATIONS AT THIS TIME, AND WILL CONTINUE TO ATTEND AND PARTICIPATE IN FUTURE GROUP SESSIONS.
--- NOTE | 2018-07-30 18:03 | NUR ---
MILK OF MAGNESIA GIVEN THIS AM FOR PT C/O CONSTIPATION HAS BEEN EFFECTIVE FOR X-LARGE BM.
--- NOTE | 2018-07-30 18:15 | NUR ---
SHIFT CHART CHECK COMPLETED.
[2018-07-30 18:32] VITALS: BP 110/58
[2018-07-30 19:18] VITALS: BP 110/58
--- NOTE | 2018-07-30 21:25 | NUR ---
DR GARCIA ON UNIT TO ASSESS PT.
--- NOTE | 2018-07-30 21:31 | NUR ---
DR GARCIA D/C BLOOD PRESSURE MEDICATIONS CLONODINE AND LISINOPRIL. MEDICATION NOT GIVEN FOR 2 DAYS D/T DECREASED BP.
--- NOTE | 2018-07-30 23:25 | NUR ---
Met with pt and offered support and encouragement and pt stated she is feeling much better. Discussed discharge plan and her visit as well as that pt was able to get her eyeglasses and feels much better.
--- NOTE | 2018-07-31 01:48 | NUR ---
24 HR chart check completed.
--- NOTE | 2018-07-31 05:27 | NUR ---
A&O X4. STABLE MOOD. CALM AND COOPERATIVE. NO HALLUCINATIONS OR DELUSIONS NOTED. NO SI/HI NOTED. FALL PRECAUTIONS MAINTAINED. Q15 MINUTE SAFETY CHECKS MAINTAINED. MEDICATION COMPLIANT WITHOUT DIFFICULTY. MEDICATION EDUCATION PROVIDED. PT SLEPT APPROXIMATELY 7 HOURS THIS SHIFT. SEE [facility] FLOWSHEET FOR SPECIFIC MONITORING.
--- NOTE | 2018-07-31 07:30 | NUR ---
OT NOTE Pt was seen this A.M. 1:1 for 15 minute OT session with [employer] and nursing present for observation only. Upon arrival pt was sitting upright in the dining room. Pt identified by name and and had no complaints at this time. Functional mobility completed to her bathroom with CGA and use of w/w for UE support. There she transferred on/off standard commode with CGA for safety. Clothing management and toilet hygiene completed with SBA while standing. Pt then stood sink side while washing her face and brushing her teeth with SBA. Pt tolerated aprox 5 minutes of static standing before sitting due to fatigue. Throughout entire session pt maintain good safety awareness and performed with good walker safety. Functional mobility completed back to the dining room where she was left sitting under [facility] staff supervision. Continue with POC as able. SHAD Philippe/Madiha
--- NOTE | 2018-07-31 07:30 | NUR ---
PHYSICAL THERAPY Patient seen this am for therapy visit and was sitting up EOB with OT surveyor instrument assistant present upon therapist arrival. [facility] staff member also present for observation only in room as patient transfers sit to stand with Min/CGA from low bed surface. Patient ambulates with use of wh walker, 50'x 2, CGA, demonstrating even terell and slow velocity. Patient also able to take 5-6 steps backwards, very cautious and completed several 180 turns demonstrating unsteady balance. Patient instructed on improved step sequnce during turns reduce risk of falling due to picking up walker and returned to activity room chair following treatment. Patient remained in chair awaiting breakfast under [facility] staff Supervision and will continue per POC as tolerated, total treatment time 16 minutes. Vimal Courtney, RECLAIMER
[2018-07-31 08:12] VITALS: BP 134/62
--- NOTE | 2018-07-31 08:30 | NUR ---
Treatment Plan meeting with Dr. Briceño, RN, AT, and [employer]. Plan for discharge Tuesday. Pt. to return home at discharge with [facility].
--- NOTE | 2018-07-31 11:23 | NUR ---
Shift chart check completed.
--- NOTE | 2018-07-31 11:53 | NUR ---
DR. GOOD ON UNIT TO ASSESS PATIENT FOR CARDIOLOGY CONSULT THAT WAS PUT IN TUESDAY.
--- NOTE | 2018-07-31 12:00 | NUR ---
AM GROUP/WORDSEARCH/PARACHUTE PT ATTENDED AND PARTICIPATED TO BEST OF ABILITY. PT PLEASANT AND ON TASK AND WILL CONTINUE TO ATTEND AN DPARTICIPATE IN FUTURE GROUP SESSIONS.
--- NOTE | 2018-07-31 13:35 | NUR ---
PATIENT IS ALERT AND ORIENTED. PATIENT IS PLEASANT, MOOD STABLE, CALM AND PURPOSEFUL. PATIENT IS EATING AND DRINKING ADEQUATE AMOUNTS. PATIENT DENIES HALLUCINATIONS, DELUSIONS, SI/HI, OR PAIN AT THIS TIME. NO S/S OF INTERACTING WITH INTERNAL STIMULI. PATIENT IS ATTENDING GROUPS BUT NOT PARTICIPATING. ENCOURAGE PATIENT TO PARTICIPATE FOR SOCIALIZATION AND EMOTIONAL SUPPORT. PATIENT IS TALKATIVE WHEN SPOKEN TO. PATIENTS GAIT IS STEADY WITH THE US OF A WALKER FOR ASSISTANCE. PATIENT ON 2 LITERS OF OXYGEN ON NASAL CANNULA. Q15 MINUTE CHECKS MAINTAINED FOR SAFETY. FALLING STAR PROGRAM MAINTAINED FOR SAFETY.
--- NOTE | 2018-07-31 15:45 | NUR ---
PM GROUP/LEISURE SKILLS PT ATTENDED AND PARTICIPATED TO BEST OF ABILITY WITH EXTRA ASSISTANCE FROM THIS STAFF. PT PLEASANT WITH NO HALLUCINATIONS EXPRESSED ATTHIS TIME. PT WILL CONTINUE TO ATTEND AND PARTICIPATE TO BEST OF ABILITY.
--- NOTE | 2018-07-31 18:35 | NUR ---
DR. UPTON ON FLOOR TO ASSESS PATIENT.
[2018-07-31 19:54] VITALS: BP 141/79
--- NOTE | 2018-07-31 23:19 | NUR ---
24 HR chart check completed.
--- NOTE | 2018-08-01 03:39 | NUR ---
PATIENT ALERT AND ORIENTED. PATIENT WITH NO SHORT TERM AND RETIREMENT MEMORY DEFICITS AT THIS TIME. PATIENT WITH NO SUICIDAL OR HOMICIDAL IDEATIONS. PATIENT WITH NO HALLUCINATIONS OR DELUSIONS. PATIENT CONTINUES ON OXYGEN AT 2L O2 VIA NASAL CANNULA WITHOUT DIFFICULTY. PATIENT CONTINENT OF BLADDER AT HS. PATIENT MEDICATION COMPLIANT. SEE [facility] FLOW SHEET FOR SPECIFIC MONITORING
--- NOTE | 2018-08-01 06:12 | NUR ---
PT SLEPT 6.5 HOURS
--- NOTE | 2018-08-01 07:13 | NUR ---
OT NOTE Pt was seen this A.M. 1:1 for 23 minute OT session with nursing present for observation only. Upon arrival pt was sitting upright in the dining room. Pt identified by name and and had no complaints at this time. Pt completed functional mobility into the bathroom with CGA and use of w/w for UE support. There she was requested to transfer sit <>supine for increased I in bed mobility. Pt transferred into bed sit to supine with SBA. However for supine to sit transfer pt required Elijah for assist with UB. Educated pt on log roll technique for increased I in bed mobility. Had pt trial supine to sit again using the log roll technique and pt was able to complete with SBA and verbal prompts for sequencing. Functional mobility completed into the bathroom with CGA. There she transferred on/off standard commode with CGA for safety. Clothing management completed with CGA and toilet hygiene completed with CGA while standing. She then stood sink side while washing her hands and face with CGA. Pt was able to tolerate aprox 5 minutes of static standing at a time before sitting due to fatigue. Pt was left sitting upright in the dining room under [facility] staff supervision. Continue with POC as able. SHAD Philippe/Madiha
[2018-08-01 07:47] VITALS: BP 137/65
--- NOTE | 2018-08-01 07:55 | NUR ---
PHYSICAL THERAPY Informed consent given, pt identified by name and , pt presented sitting in chair w/o alarm. STS and stand to sit multiple times, edu on safe hand placement reaching back for chair to avoid falls, CGA x 1 walked 60ft FWW CGA w/ multiple turns, edu to keep hands on FWW to avoid falls. dynamic standing balance 1 hand on FWW reaching BUE across midline x4 challenging weight shift, no LOB presented, SBA x 1 edu for proper technique throughout activity. KULKARNI observed throughout treatment, ended treatment pt sitting in chair at table w/ nursing staff no alarm. treatment time 23min. Will continue per POC as tolerated. Vimal Courtney, AVIATION MANAGER
[2018-08-01] MEDS ORDERED: NAMENDA-5 PO (09:11)
[2018-08-01] MEDS ORDERED: RISPERIDONE0.5 MG PO (09:11)
[2018-08-01] MEDS ORDERED: EXELON13.3 MG/21 T (09:11)
--- NOTE | 2018-08-01 11:49 | NUR ---
AM GROUP/EXERCISE AND STRESS REDUCTION PT WAS PRESENT FOR MORNING GROUP THERAPY BUT CHOSE NOT TO PARTICIPATE. PT SAT QUIETLY AND OBSERVED. PT WILL BE DISCHARGED FROM THE UNIT THIS AFTERNOON.
--- NOTE | 2018-08-01 12:00 | NUR ---
Collaborated in tx team regarding discharge plan for today. Completed d/c ppwk. Called [facility] to confirm d/c plan. Met with pt who appeared content and happy about discharge. Pt reviewed aftercare appts and supports and the need to confirm her medications are being delievered by her pharmacy. Met with pt and family and answered questions confirming dx of dementia and offered support and encouragement. Pt completed goal.
--- NOTE | 2018-08-01 12:17 | NUR ---
PATIENT READY FOR DISCHARGE, FRIEND PRESENT. ALL DISCHARGE INSTRUCTIONS REVIEWED AND SIGNED. ALL BELONGING GATHERED. PATIENT ASSISTED TO WHEELCHAIR. STAFF ASSIST OF UNIT WITH PATIENT AND FRIENDS TO PRIVATE VEHICLE.
--- NOTE | 2018-08-01 12:23 | NUR ---
PHYSICAL THERAPY CO-SIGN I approve of the Phyical Therapy notes written above. BAUTISTA HWANG PT
--- NOTE | 2018-08-02 07:08 | NUR ---
OCCUPATIONAL THERAPY CO-SIGN I approve of the Occupational Therapy notes written above. THIERNO KRISHNAMURTHY
[2018-08-07] MEDS ORDERED: DILTIAZEM HCL240 M1 PO (08:36)
[2018-08-11] MEDS ORDERED: LISINOPRIL40 MG PO (00:44)
[2018-08-11] MEDS ORDERED: CLONIDINE HCL0.2 MG PO (00:44)
[2018-08-11] MEDS ORDERED: HYDROXYZINE PAM25 M1 PO (00:46)
[2018-09-06] MEDS ORDERED: SIMVASTATIN20 MG PO (16:35)
[2018-09-06] MEDS ORDERED: NYSTATIN CREAM15 GM T (16:38)
[2018-09-08] MEDS ORDERED: VITAMIN D5000 UNIT PO (18:22)
[2018-09-08] MEDS ORDERED: POTASSIUM CHLO10 MEQ PO (18:22)
[2018-09-08] MEDS ORDERED: DOCUSATE SOD100 MG PO (18:22)
[2018-09-08] MEDS ORDERED: LEVOTHYROXINE50 MCG PO (18:22)
[2018-09-08] MEDS ORDERED: EXELON13.3 MG/21 T (18:22)
[2018-09-08] MEDS ORDERED: SIMVASTATIN20 MG PO ×2 (18:22→18:24)
[2018-09-08] MEDS ORDERED: HYDROXYZINE PAM25 M1 PO (18:22)
[2018-10-17] MEDS ORDERED: BUMETANIDE1 MG PO (06:45)
[2018-10-17] MEDS ORDERED: TRAZODONE50 MG PO (06:47)
[2018-10-17] MEDS ORDERED: MIRALAX17 GM PO (06:48)
[2018-10-17] MEDS ORDERED: MILK OF MA400 MG/5 M PO (06:49)
[2018-10-17] MEDS ORDERED: DULCOLAX10 M1 R (06:50)
[2018-10-17] MEDS ORDERED: FLEET ENEMA 13133 ML R (06:50)
[2018-10-17] MEDS ORDERED: ACETAMINOPHEN325 M2 PO (06:51)
[2018-10-17] MEDS ORDERED: FLEET MINERAL133 ML PO (08:50)
[2018-10-17] MEDS ORDERED: Synthroid,Levo50 MCG PO (08:53)
[2018-10-21] MEDS ORDERED: OXYBUTYNIN CHLOR5 MG PO (16:58)
[2018-11-23] MEDS ORDERED: CEPHALEXIN500 M1 PO (12:39)
== END 2018-08-01 12:18 | disposition home or self-care (01) | DRG 57 ==
LOC: 3N 11:14
PROVIDERS: ADMIT Psychiatry & Neurology Psychiatry
DX: G30.1 Alzheimer's disease with late onset (principal); F23 Brief psychotic disorder; N39.0 Urinary tract infection, site not specified; E44.0 Moderate protein-calorie malnutrition; I10 Essential (primary) hypertension; F02.80 Dementia in other diseases classified elsewhere, unspecified severity, without behavioral disturbance, psychotic disturbance, mood disturbance, and anxiety; R62.7 Adult failure to thrive; I48.2 Chronic atrial fibrillation; C67.9 Malignant neoplasm of bladder, unspecified; E03.9 Hypothyroidism, unspecified; E78.2 Mixed hyperlipidemia; I08.3 Combined rheumatic disorders of mitral, aortic and tricuspid valves; I27.20 Pulmonary hypertension, unspecified; I25.10 Atherosclerotic heart disease of native coronary artery without angina pectoris; Z68.28 Body mass index [BMI] 28.0-28.9, adult

== ENCOUNTER 2018-09-11 07:22 | Inpatient (IN) | payer MEDICARE ==
[~2018-09-11] VITALS: Ht 152.4 cm; Wt 67.4 kg
--- NOTE | ~2018-09-11 | PR ---
[place], [place] PROGRESS NOTE NAME: NEIL TUTTLE UNIT #: [id number] ROOM: 511 DOCTOR: MINISTERIO CHRISTY MD BIRTHDATE: [birth year] DOS: 09/13/2018 SUBJECTIVE: The patient is resting comfortably, states that she wants something for sleep. OBJECTIVE: VITAL SIGNS: Blood pressure is 129/65, pulse of 80, respirations 18, and temperature 97.7. LUNGS: Diminished breath sounds. HEART: Irregular. ABDOMEN: Obese. EXTREMITIES: Without any edema. ASSESSMENT AND PLAN: 1. Adult failure to thrive. She has been placed in the [facility] for long-term care. The plan is to discharge her to home today. 2. Diastolic congestive heart failure, resolved. MINISTERIO CHRISTY MD CM:PNTRANS [phone] MINISTERIO CHRISTY MD 09/13/18 2244 interface
--- NOTE | ~2018-09-11 | EKG ---
[place], [place] ELECTROCARDIOGRAM REPORT NAME: NEIL TUTTLE UNIT #: [id number] ROOM: 511 DOCTOR: CHAVO DRAFT REPORT BIRTHDATE: [birth year] [facility] Test Date: 2018-09-11 Test Time: 14:21:51 Pat Name: NEIL TUTTLE Department: Room: 511 Gender: F Mail Deliverer: EKG.DC : 1930 Requested By: DARREL RAPHAEL Order Number: [id number] Reading MD: Mickey León Measurements Intervals [place] Rate: 67 P: [place]: QRS: 6 QRSD: 92 T: 73 QT: 413 QTc: 436 Interpretive Statements Atrial fibrillation Baseline wander in lead(s) V6 Compared to ECG 09/06/2018 17:18:35 No significant changes Electronically Signed On 09-12-2018 9:52:57 PDT by Mickey León CM:EKGRPT:ELECTROCARDIOGRAM REPORT [id number] DARREL APPIAH DRAFT REPORT DARREL RAPHAEL DO
--- NOTE | ~2018-09-11 | WRIGHTHP ---
[place], [place] PATIENT HISTORY AND PHYSICAL EXAM NAME: NEIL TUTTLE [facility] #: [id number] UNIT #: [id number] ROOM: 511 DOCTOR: MINISTERIO CHRISTY MD BIRTHDATE: [birth year] DOS: 09/11/2018 HISTORY OF PRESENT ILLNESS: The patient was discharged from the hospital from Dr. Head on Tuesday morning. The patient states that she went with a friend of hers, but did not take any medications because her friend did not know which medicines to give her and the patient does not know either. She did not eat or drink anything other than a glass of tea in the last 2 days, so she decided to come back to the Emergency Room this morning stating that the visiting nurse has never came to see her. Unfortunately, it was a holiday and visiting nurses are not usually there to see the patient anyway. She denies having any chest pains, palpitations. In the ER, the ER physician felt that the patient may have slight congestive heart failure and one dose of Lasix was given. PAST MEDICAL HISTORY: Significant for: 1. Adult failure to thrive. 2. Age-related cognitive decline. 3. Schizoaffective disorder. 4. 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 5. Benign hypertension. 6. Chronic atrial fibrillation. MEDICATIONS: Xarelto, diltiazem, Risperdal, Namenda, Lasix, and potassium. PHYSICAL EXAMINATION: GENERAL: She is awake and alert and oriented. VITAL SIGNS: Graphic trend shows pressure 120/70, pulse of 72, respirations 16, afebrile. LUNGS: Diminished breath sounds and clear. HEART: Irregular. ABDOMEN: Obese, soft, nontender. EXTREMITIES: Without any edema. She did recognize me and answers questions appropriately. ASSESSMENT AND PLAN: 1. Adult failure to thrive, due to multifactorial. One of the major problems, she is unable to take care of herself at home. A good friend of hers stated that she would take care of her, but did not happen, so we will admit her and she will need fdc placement. Social service will be consulted. 2. Mild diastolic congestive heart failure. One dose of Lasix was given in the ER. She seems to be stable and compensated. No further diuretics ordered. 3. Chronic atrial fibrillation, on Xarelto as well as diltiazem. The patient states that she did not receive any of her medications for the last 3 days, which will be reordered. [place], [place] PATIENT HISTORY AND PHYSICAL EXAM NAME: NEIL TUTTLE UNIT #: [id number] ROOM: [facility] DOCTOR: MINISTERIO CHRISTY MD BIRTHDATE: [birth year] MINISTERIO CHRISTY MD CM:HISPHYS:PATIENT HISTORY AND PHYSICAL EXAMINATION [id number] MINISTERIO CHRISTY MD 09/19/18 0755 interface
--- NOTE | ~2018-09-11 | DS ---
[place], [place] DISCHARGE SUMMARY NAME: NEIL TUTTLE UNIT #: [id number] ROOM: 511 DOCTOR: MINISTERIO CHRISTY MD BIRTHDATE: [birth year] DOS: 09/13/2018 DIAGNOSES: 1. Adult failure to thrive. 2. Age-related cognitive decline. 3. Schizoaffective disorder. 4. Repeated UTIs. 5. CA bladder. 6. Benign hypertension. 7. Chronic atrial fibrillation. DISCHARGE MEDICATIONS: Rivastigmine 13.3 mg patch daily, Xarelto 15 mg daily, simvastatin 20 daily, isosorbide 30 daily, diltiazem 240 daily, Risperdal 0.5 twice a day, Namenda 5 mg b.i.d., potassium 10 daily, Lasix 20 daily, Colace 100 mg at bedtime, levothyroxine 50 mcg daily, flavoxate 100 mg daily and Remeron 15 mg at bedtime, Lasix 20 mg every day. HOSPITAL COURSE: This patient is 88 years old, very well known to us. She has been admitted back to the hospital with complaints of shortness of breath. The patient is unable to take care of herself and she does not have any relatives to take care of. She went back with her friend to her friend's house and that did not work out for her. She came back to the Emergency Room and wants placement long-term care. She understands that she cannot live at home alone. In the ER, she seemed to have slight CHF, which is diastolic and was given diuretics and the patient diuresed nicely. This morning, she feels good and is not having any complaints. Social service has been consulted and she has been approved at [facility]. The patient will be admitted under Dr. Head's services at the [facility]. DIET: Low sodium. [place], [place] DISCHARGE SUMMARY NAME: NEIL TUTTLE UNIT #: [id number] ROOM: 511 DOCTOR: MINISTERIO CHRISTY MD BIRTHDATE: [birth year] MINISTERIO CHRISTY MD CM:DISCHARG [phone] MINISTERIO CHRISTY MD 09/13/18 1440 interface
--- NOTE | ~2018-09-11 | EKG ---
[place], [place] ELECTROCARDIOGRAM REPORT NAME: NEIL TUTTLE UNIT #: [id number] ROOM: 511 DOCTOR: CHAVO DRAFT REPORT BIRTHDATE: [birth year] [facility] Test Date: 2018-09-11 Test Time: 10:31:09 Pat Name: NEIL TUTTLE Department: Room: 511 Gender: F Fibre Composite Technician: Isabel Raman : 1930 Requested By: DARREL RAPHAEL Order Number: [id number] Reading MD: Mickey León Measurements Intervals [place] Rate: 96 P: ND: QRS: 2 QRSD: 93 T: 161 QT: 383 QTc: 484 Interpretive Statements Atrial fibrillation Low voltage, extremity leads Borderline repolarization abnormality Compared to ECG 09/06/2018 17:18:35 No significant changes Electronically Signed On 09-12-2018 9:52:20 PDT by Mickey León CM:EKGRPT:ELECTROCARDIOGRAM REPORT [id number] DARREL APPIAH DRAFT REPORT DARREL RAPHAEL DO
--- NOTE | ~2018-09-11 | EKG ---
[place], [place] ELECTROCARDIOGRAM REPORT NAME: NEIL TUTTLE UNIT #: [id number] ROOM: 511 DOCTOR: CHAVO DRAFT REPORT BIRTHDATE: [birth year] [facility] Test Date: 2018-09-11 Test Time: 07:27:39 Pat Name: NEIL TUTTLE Department: Room: 511 Gender: F House Wirer Helper: : 1930 Requested By: DARREL RAPHAEL Order Number: [id number] Reading MD: Mickey León Measurements Intervals [place] Rate: 80 P: [place]: QRS: 7 QRSD: 92 T: 90 QT: 360 QTc: 416 Interpretive Statements Atrial fibrillation with controlled ventricular rates Low voltage, extremity leads Compared to ECG 09/06/2018 17:18:35 No significant changes Electronically Signed On 09-12-2018 9:51:59 PDT by Mickey León CM:EKGRPT:ELECTROCARDIOGRAM REPORT [id number] DARREL APPIAH DRAFT REPORT DARREL RAPHAEL DO
--- NOTE | ~2018-09-11 | PR ---
[place], [place] PROGRESS NOTE [id number] UNIT #: [id number] ROOM: 511 DOCTOR: MINISTERIO CHRISTY MD BIRTHDATE: [birth year] DOS: SUBJECTIVE: The patient is about the same, does not have any new complaints. OBJECTIVE: VITAL SIGNS: Graphic trend shows a pressure of 108/57, pulse of 70, respirations 18, temperature 97.9. LUNGS: Diminished breath sounds, clear. HEART: Irregular. Heart rate controlled. ABDOMEN: Obese, soft. EXTREMITIES: Without any edema. Three sets of troponins were negative. ASSESSMENT AND PLAN: 1. Acute diastolic congestive heart failure, resolving. Repeat chest x-ray will be ordered. 2. Chronic atrial fibrillation, on long-term use of anticoagulants. Heart rate controlled on medicines. 3. Age-related cognitive decline, on multiple medications. The patient is awaiting placement. MINISTERIO CHRISTY MD CM:PNTRANS [phone] MINISTERIO CHRISTY MD 09/12/182299 interface
[~2018-09-11 07:22] MED LIST changes: +DILTIAZEM HCL240 M1 PO; +DOCUSATE SOD100 MG PO; +EXELON13.3 MG/21 T; +LISINOPRIL40 MG PO; +NAMENDA-5 PO; +NYSTATIN CREAM15 GM T; +RISPERIDONE0.5 MG PO; +SIMVASTATIN20 MG PO
[2018-09-11 07:28] VITALS: BP 136/91
[2018-09-11 07:47] LABS: BASO % 0.4 % (0.0-1.0); EOS # 0.1 10*3/uL (0.0-0.4); EOS % 1.9 % (1.0-4.0); HEMATOCRIT 37.8 % (37.0-47.0); HEMOGLOBIN 12.4 g/dl (12.0-16.0); LYMPH # 1.8 10*3/uL (1.3-4.4); LYMPH % 25.8 % (27.0-41.0); MEAN CELL VOLUME 104.1 fl (81.0-99.0); MEAN CORPUSCULAR HGB 34.2 pg (27.0-31.0); MEAN CORPUSCULAR HGB CONC 32.8 g/dl (33.0-37.0); MEAN PLATELET VOLUME 10.5 fl (9.6-12.3); MONO # 0.6 10*3/uL (0.1-1.0); MONO % 8.8 % (3.0-9.0); NEUT # 4.4 10*3/uL (2.3-7.9); PLATELET COUNT AUTOMATED 158 10*3/uL (130-400); RED BLOOD COUNT 3.63 10*6/uL (4.10-5.10); RED CELL DISTRI WIDTH 14.5 % (0-14.5)
[2018-09-11 07:58] LABS: ACT PARTIAL THROMBO TIME 23.6 SECONDS (20.8-31.5)
[2018-09-11 08:05] LABS: ALBUMIN 2.6 gm/dl (3.1-4.5); ALKALINE PHOSPHATASE 89 U/L (45-117); BUN 21 mg/dl (7-24); CHLORIDE 108 mmol/L (98-107); POTASSIUM 3.6 mmol/L (3.5-5.1); SGOT/AST 23 IU/L (3-35); SGPT/ALT 16 U/L (12-78); SODIUM 143 mmol/L (136-145); TOTAL PROTEIN 5.6 gm/dL (6.4-8.2); TROPONIN I 0.025 ng/ml (<0.045)
[2018-09-11 08:22] VITALS: BP 140/71
[2018-09-11] MEDS ORDERED: LASIX20 MG PO (08:48)
[2018-09-11] MEDS ORDERED: VITAMIN D5000 UNIT PO (08:55)
--- NOTE | 2018-09-11 09:00 | NUR ---
Tapper Shank in to talk to patient. Patient states lives at home in an apartment with her friend, Angeli. There are 11 steps in the home. Physician: Dr. Alina Webb Pharmacy: [facility] Home health services: none Patient's level of ADLs: MODERATE ASSIST Patient has working utilities: yes DME: walker Follow-up physician's appointment after d/c: she prefers to make her own follow up appt after discharge Does patient want to access PORTAL?: no Discharge plan discussed with patient. She states she lives in an apartment with her friend, Angeli. She needs moderate assistance with her ADLs and ambulates with a walker. Discussed short term and care home SNF and she is agreeable. She doesn't want to go to [facility]. When provided with a list of other facilities she chose [facility] in [place]. senior materials planner notified and following. SHANNON FUCHS
--- NOTE | 2018-09-11 09:00 | NUR ---
A 88, admitted to , under the services of MINISTERIO Gomez MD with a diagnosis of CHF. Chief complaint is SHORT OF BREATH. Patient arrived via stretcher from ER. Monitor applied. Initial assessment completed. Vital signs taken and recorded. MINISTERIO GOMEZ MD notified of admission to the unit. Orders received. See assessment for past medical history, medications and allergies. Patient and/or family oriented to unit[facility]. Clothing/patient valuable form completed. KAIT DODGE
[2018-09-11 09:11] VITALS: BP 117/80
[2018-09-11 12:00] VITALS: BP 115/63
--- NOTE | 2018-09-11 12:00 | NUR ---
PHYSICAL THERAPY Patient evaluated on 5, full evaluation to follow. Continue with PT as per plan of care with fall, 02, ALARM and acute debility precautions. Will require SNF. PAtient is moderate complexity via chart review, tests and evaluation: 57263. Thank you for this referral. Sowmya Urrutia,PT
--- NOTE | 2018-09-11 12:36 | NUR ---
Faxed initial referral (face sheet and ER report) to [facility] in [facility]. Spoke with Bess MILAGRO. [phone] FAX: [phone]. discussed that patient does have ability to pay some of her copay days in advance, however someone needs to assist her in applying for [place] Medicaid for shelter care. Bess stated she is trying to rearrange some current patients to make room and will review the referral. Also gave her the phone number for Angeli who takes care of the finances for patient. Bess stated she would call back and let me know her decision. She will still need an H&P, med list and physical therapy eval if willing to accept.
--- NOTE | 2018-09-11 14:35 | NUR ---
Additionl information faxed to [employer] for [place] PASS/RR completion. Waiting on acceptance.,
--- NOTE | 2018-09-11 15:00 | NUR ---
ASSUMED CARE FOR THIS PT AT THIS TIME. PT AWAKE DURING BEDSIDE SHIFT REPORT. NO C/O VOICED. CALL LIGHT IN REACH.
[2018-09-11 16:00] VITALS: BP 92/54
[2018-09-11 20:00] VITALS: BP 130/69
[2018-09-12] VITALS: BP 108/57
[2018-09-12 08:00] VITALS: BP 151/76
--- NOTE | 2018-09-12 08:30 | NUR ---
Clerk Rating in to see patient. Discussed short term SNF at [facility] in [place]. She would like to see about going back to [facility] as it is closer for people to visit her and she states "they were really nice to me over there and told me I could come back if i needed to." Will reach out to Bhavani at [facility] for acceptance.
--- NOTE | 2018-09-12 10:35 | NUR ---
Spoke to Bhavani at [facility] regarding referral. Patient and Angeli both understand there will be an upfront cost as patient has used all of her covered SNF days and she is into her co-pay days. Bhavani will apply for Medicaid for LTC. Referral faxed to [phone].
--- NOTE | 2018-09-12 11:16 | NUR ---
PASSR needs to be completed for [facility]. Hanh Padgett notified and will complete.
[2018-09-12 12:00] VITALS: BP 151/83
--- NOTE | 2018-09-12 13:15 | NUR ---
PHYSICAL THERAPY Patient seen this pm 1:1 for therapy visit and was supine in bed upon therapist arrival. Patient reports feeling generalized, global weakness this afternoon, but otherwise was very pleasant. Patient transfers supine to sit EOB with Min/Mod A, taking a few minutes to collect herself. Patient then performed sit to stand Min/CGA, ambulating with use of st cane, 50'x 2, CGA during straightline gait and Min A for all 180 turns, secondary to unsteady step sequence. Patient also fatigues quickly > 40 feet, requiring seated rest break between gait trials. Patient demonstrates decreased, uneven stride and returned to EOB sit. Patient completed B LE therex, all planes, 2 x 10 with v/c to improve full AROM. Patient returned to supine in bed needing therapist assist with B LE's and remained with call light, tray table, telephone and bed alarm for safety. Will continue per POC as tolerated, total treatment time 23 minutes. Vimal Courtney, CRA OFFICER
--- NOTE | 2018-09-12 15:10 | NUR ---
PASSR completed. Notified Bhavani at [facility].
[2018-09-12 16:00] VITALS: BP 113/81
[2018-09-12 20:00] VITALS: BP 147/76
--- NOTE | 2018-09-12 20:13 | NUR ---
DR. CHRISTY NOTIFIED OF PT'S C/O BACK PAIN AND REQUESTING TYLENOL. T.O. RCVD FOR TYLENOL 650 MG PO EVERY 6 HRS PRN PAIN.
--- NOTE | 2018-09-12 21:04 | NUR ---
PT MEDICATED W/TYLENOL FOR C/O MILD BACK PAIN. PT SITTING UP IN CHAIR IN ROOM W/VISITOR AT BEDSIDE. WILL MONITOR FOR EFFECTIVENESS.
[2018-09-13] VITALS: BP 129/65
--- NOTE | 2018-09-13 07:18 | NUR ---
Patient has been accepted to [facility]. She can be discharged when medically stable.
[2018-09-13 08:00] VITALS: BP 140/70
[2018-09-13] MEDS ORDERED: LASIX20 MG PO (08:57)
--- NOTE | 2018-09-13 09:09 | NUR ---
Transportation set up with [employer] for transport to [facility] at noon. birth certificate clerk notified.
--- NOTE | 2018-09-13 09:20 | NUR ---
Notified Bhavani at [facility] of patient's discharge at noon today
--- NOTE | 2018-09-13 12:15 | NUR ---
PT DISCHARGED TO [facility] AT THIS TIME. REPORT GIVEN TO RECIEVING UNIT. [place] DISCONTINUED.
--- NOTE | 2018-09-14 07:04 | NUR ---
PHYSICAL THERAPY CO-SIGN I approve of the Phyical Therapy notes written above. BAUTISTA HWANG PT
[2018-10-17] MEDS ORDERED: BUMETANIDE1 MG PO (06:45)
[2018-10-17] MEDS ORDERED: TRAZODONE50 MG PO (06:47)
[2018-10-17] MEDS ORDERED: MIRALAX17 GM PO (06:48)
[2018-10-17] MEDS ORDERED: MILK OF MA400 MG/5 M PO (06:49)
[2018-10-17] MEDS ORDERED: DULCOLAX10 M1 R (06:50)
[2018-10-17] MEDS ORDERED: FLEET ENEMA 13133 ML R (06:50)
[2018-10-17] MEDS ORDERED: ACETAMINOPHEN325 M2 PO (06:51)
[2018-10-17] MEDS ORDERED: FLEET MINERAL133 ML PO (08:50)
[2018-10-17] MEDS ORDERED: Synthroid,Levo50 MCG PO (08:53)
[2018-10-21] MEDS ORDERED: OXYBUTYNIN CHLOR5 MG PO (16:58)
[2018-11-23] MEDS ORDERED: CEPHALEXIN500 M1 PO (12:39)
== END 2018-09-13 12:21 | disposition other institution (70) | DRG 291 ==
LOC: ED 07:22 → EDHOLD 08:30 → 5E 08:30
PROVIDERS: Emergency Medicine; ADMIT Internal Medicine
DX: I11.0 Hypertensive heart disease with heart failure (principal); I50.31 Acute diastolic (congestive) heart failure; E44.1 Mild protein-calorie malnutrition; R62.7 Adult failure to thrive; F25.9 Schizoaffective disorder, unspecified; G89.29 Other chronic pain; M54.9 Dorsalgia, unspecified; M79.606 Pain in leg, unspecified; I48.2 Chronic atrial fibrillation; M48.00 Spinal stenosis, site unspecified; C67.9 Malignant neoplasm of bladder, unspecified; R41.81 Age-related cognitive decline; Z87.440 Personal history of urinary (tract) infections; Z91.81 History of falling; Z79.01 Long term (current) use of anticoagulants; Z68.29 Body mass index [BMI] 29.0-29.9, adult

== ENCOUNTER → 2018-12-14 | Outpatient (CLI) | payer MEDICARE ==
[~2018-12-14] MED LIST changes: +ACETAMINOPHEN325 M2 PO; +BUMETANIDE1 MG PO; +CEPHALEXIN500 M1 PO; +DULCOLAX10 M1 R; +FLEET ENEMA 13133 ML R; +FLEET MINERAL133 ML PO; +MILK OF MA400 MG/5 M PO; +MIRALAX17 GM PO; +OXYBUTYNIN CHLOR5 MG PO; +Synthroid,Levo50 MCG PO; +TRAZODONE50 MG PO
== END | disposition home or self-care (01) ==
LOC: CT 13:00
DX: C67.9 Malignant neoplasm of bladder, unspecified (principal); J90 Pleural effusion, not elsewhere classified

== ENCOUNTER 2019-02-24 13:12 | Emergency (ER) | payer MEDICARE, MEDICAID ==
[~2019-02-24] VITALS: Ht 165.1 cm; Wt 64.9 kg
[2019-02-24 13:12] VITALS: BP 132/75
[2019-02-24 14:25] LABS: BASO % 0.4 % (0.0-1.0); EOS # 0.1 10*3/uL (0.0-0.4); EOS % 1.8 % (1.0-4.0); HEMATOCRIT 33.9 % (37.0-47.0); HEMOGLOBIN 11.1 g/dl (12.0-16.0); LYMPH # 1.5 10*3/uL (1.3-4.4); LYMPH % 18.3 % (27.0-41.0); MEAN CORPUSCULAR HGB 33.7 pg (27.0-31.0); MEAN CORPUSCULAR HGB CONC 32.7 g/dl (33.0-37.0); MEAN PLATELET VOLUME 10.4 fl (9.6-12.3); MONO # 0.8 10*3/uL (0.1-1.0); MONO % 9.7 % (3.0-9.0); NEUT # 5.5 10*3/uL (2.3-7.9); NEUT % 69.5 % (47.0-73.0); PLATELET COUNT AUTOMATED 174 10*3/uL (130-400); RED BLOOD COUNT 3.29 10*6/uL (4.10-5.10); RED CELL DISTRI WIDTH 13.6 % (0-14.5); WHITE BLOOD COUNT 7.9 10*3/uL (4.8-10.8)
[2019-02-24 15:03] LABS: ALBUMIN 2.5 gm/dl (3.1-4.5); ALKALINE PHOSPHATASE 92 U/L (45-117); BUN 19 mg/dl (7-24); CHLORIDE 103 mmol/L (98-107); POTASSIUM 3.2 mmol/L (3.5-5.1); SGOT/AST 19 IU/L (3-35); SGPT/ALT 17 U/L (12-78); SODIUM 140 mmol/L (136-145); TOTAL PROTEIN 5.8 gm/dL (6.4-8.2)
[2019-02-24 15:14] LABS: TROPONIN I < 0.015 ng/ml (<0.045)
== END 2019-02-24 15:26 | disposition home or self-care (01) ==
LOC: ED 13:12
PROVIDERS: Nurse Practitioner Family
DX: M54.5 Low back pain (principal); R51 Headache; R42 Dizziness and giddiness; Z90.710 Acquired absence of both cervix and uterus; Z79.899 Other long term (current) drug therapy; W06.XXXA Fall from bed, initial encounter; Y93.89 Activity, other specified; Y92.128 Other place in nursing home as the place of occurrence of the external cause; Y99.9 Unspecified external cause status

== ENCOUNTER 2019-03-08 12:50 | Inpatient (IN) | payer MEDICARE, MEDICAID ==
[~2019-03-08] VITALS: Ht 162.6 cm; Wt 64.6 kg
[2019-03-08] VITALS (7 sets, daily range): BP systolic 120; BP diastolic 52–86
--- NOTE | ~2019-03-08 | PR ---
[place], [place] PROGRESS NOTE NAME: NEIL TUTTLE UNIT #: [id number] ROOM: 526 DOCTOR: ROBI WILSON MD BIRTHDATE: [birth year] DOS: 03/10/2019 PULMONARY PROGRESS NOTE SUBJECTIVE: The patient has been currently noted sedated for the patient noted with agitated behavior previously. She has been currently CVP patient, does not respond to the vocal command as well. The oxygen supplementation was given for this with the simple face mask. She was not noted any distress. REVIEW OF SYSTEMS: Could not be completed. OBJECTIVE: VITAL SIGNS: For the patient which were recorded this morning, normal temperature, respiratory rate 20, heart rate 104, and blood pressure 125/68. The pulse oxygen saturation with the simple face mask 90-96% saturation recorded. HEENT: Examination shows head was atraumatic. Eyes nonicterus. NECK: Supple. CARDIOVASCULAR: S1, S2 audible. LUNGS: Noted decreased breath sounds in the lungs bilaterally. There were no crackles. ABDOMEN: Soft, nontender. Bowel sounds present. EXTREMITIES: No new change. LABORATORY DATA: CBC today: WBC count 12.2, hemoglobin 8.2, platelet count was normal. BMP that was done 03/10/2019 as BUN 27, creatinine was normal. CO2 was 31. IMPRESSION: The patient with acute congestive heart failure with acute respiratory failure with agitated behavior with history of dementia. Currently, received the Ativan with changes in the mental status. PLAN OF CARE: Monitor respiratory status, mental status with code status. Follow up the respiratory status of the patient closely. Diuresis should be attempted. Other therapy, plan of management of the patient will be continued. Continue Levaquin. [place], [place] PROGRESS NOTE NAME: NEIL TUTTLE UNIT #: [id number] ROOM: 526 DOCTOR: ROBI WILSON MD BIRTHDATE: [birth year] ROBI SCOTT MD CM:PNTRANS [id number] ROBI MUNOZ MD 03/10/19 1915 interface
--- NOTE | ~2019-03-08 | EKG ---
[place], [place] ELECTROCARDIOGRAM REPORT NAME: NEIL TUTTLE UNIT #: [id number] ROOM: 526 DOCTOR: CHAVO DRAFT REPORT BIRTHDATE: [birth year] [facility] Test Date: 2019-03-08 Test Time: 22:24:57 Pat Name: NEIL TUTTLE Department: Room: 526 1 Gender: F [employer] Sales Engineer: : 1930 Requested By: FERNANDO BEAL Order Number: [id number] Reading MD: Cade Figueroa MD Measurements Intervals [place] Rate: 110 P: MD: QRS: 42 QRSD: 96 T: 108 QT: 359 QTc: 486 Interpretive Statements Atrial fibrillation Low voltage, extremity leads Abnormal R-wave progression, late transition Probable LVH with secondary repol abnrm Compared to ECG 02/24/2019 14:09:08 Low QRS voltage now present Myocardial infarct finding no longer present Electronically Signed On 03-15-2019 6:21:14 PST by Cade Figueroa MD CM:EKGRPT:ELECTROCARDIOGRAM REPORT [id number] FERNANDO TONY DRAFT REPORT FERNANDO BEAL
--- NOTE | ~2019-03-08 | PR ---
[place], [place] PROGRESS NOTE NAME: NEIL TUTTLE UNIT #: [id number] ROOM: 526 DOCTOR: TYLER MUNOZ MD,ROBI BIRTHDATE: [birth year] DOS: 03/11/2019 SUBJECTIVE: The patient was noted comfortable at this time, 100% oxygen supplementation. She has noted 1:1 observation. The patient reports that was DNR comfort care. She was noted awake. Does not state any acute symptoms and also known history of dementia. OBJECTIVE: VITAL SIGNS: For the patient noted as a temperature normal, respiratory rate of 28, heart rate of 88, blood pressure is 138/64. The pulse oxygen saturation on 100% nonrebreather mask 100% saturation. HEENT: Examination shows head was atraumatic. Eyes nonicterus. NECK: Supple. CARDIOVASCULAR: S1, S2 is audible. LUNGS: Crackles of the lungs noted bilaterally. ABDOMEN: Soft, nontender. Bowel sounds present. EXTREMITIES: No new change. LABORATORY DATA: Chest x-ray this morning showed marked worsening of the pulmonary infiltration. There were areas of consolidation with possibility of layering pleural fluids were noted. The radiology report pending. IMPRESSION: The patient with a progressive respiratory failure, finding of congestive heart failure, pneumonia cannot be completely excluded. Other noninfectious etiology with current consolidation cannot be completely excluded. PLAN OF MANAGEMENT: Overall prognosis patient remains poor at this time. Continue current plan of management, diuretic, bronchodilators and selective antibiotics based on the culture results. Supportive therapy, plan of management, care plan and treatment. ROBI SCOTT MD CM:PNTRANS [id number] ROBI MUNOZ MD 03/11/19 1516 interface
--- NOTE | ~2019-03-08 | PR ---
[place], [place] PROGRESS NOTE NAME: NEIL TUTTLE UNIT #: [id number] ROOM: 526 DOCTOR: MANUEL COHN MD BIRTHDATE: [birth year] DOS: 03/12/2019 FOLLOWUP VISIT REASON FOR VISIT: CHF and atrial fibrillation. HISTORY OF PRESENT ILLNESS: The patient is comfortable. Denies any chest pain. Breathing is slightly better. No PND, no orthopnea. No nausea, vomiting, diarrhea. No fever and chills. The patient did have mild cough, but no hemoptysis. No bladder or bowel symptoms. REVIEW OF SYSTEMS: Review of the 8 systems negative except as mentioned above. RHYTHM STRIPS: The patient was not off the monitor. PHYSICAL EXAMINATION: VITAL SIGNS: Blood pressure 122/69, respiratory rate 18, weight 64.5 kilos. GENERAL: Alert, comfortable, in no acute distress. HEENT: Pupils are round and equal, no jaundice. The patient is on nonrebreather for oxygenation. NECK: No distended neck veins. No carotid bruit. CHEST: Symmetrical, nontender. LUNGS: A few scattered rhonchi. HEART: Irregularly irregular, grade 1/6 systolic murmur. ABDOMEN: Benign, nontender. Bowel sounds normal. EXTREMITIES: Showed no edema. Distal pulses palpable. SKIN: Warm and dry. No cyanosis, no clubbing. RECTAL: Deferred. GENITOURINARY: Deferred. NEUROLOGIC: Alert with no focal neurologic deficit. MEDICATIONS AND LABS: Reviewed. IMPRESSION: 1. Acute on chronic heart failure with systolic heart failure. 2. Acute on chronic respiratory failure. 3. Chronic atrial fibrillation with intermittent peng and tachyarrhythmias. 4. Anemia. RECOMMENDATIONS: 1. Continue diuretics for her CHF. 2. I will decrease her Cardizem from 240-120 mg due to her bradycardia and adjust medication as needed. 3. Monitor blood pressure and heart rates. 4. The patient was on Xarelto anticoagulation. 5. No family at bedside. I would recommend conservative medical therapy and also consider palliative care if she does not improve. [place], [place] PROGRESS NOTE NAME: NEIL TUTTLE UNIT #: [id number] ROOM: 526 DOCTOR: MANUEL COHN MDTE: 30 MANUEL COHN MD CM:PNTRANS [id number] MANUEL COHN MD 03/19/19 0918 interface
--- NOTE | ~2019-03-08 | CON ---
[place], [place] REPORT OF CONSULTATION NAME: NEIL TUTTLE UNIT #: [id number] ROOM: 526 DOCTOR: AMANDA CAPUTO MD BIRTHDATE: [birth year] DOS: 03/12/2019 REASON FOR CONSULTATION: Pneumonia. CHIEF COMPLAINT: Shortness of breath. HISTORY OF PRESENT ILLNESS: This is an 88-year-old female with multiple comorbidities, coming from [facility] with shortness of breath, progressively getting worse for 1 week associated with low-grade fevers. On presentation, she was noted to have patchy infiltrates bilateral lungs and large moderate right-sided pleural effusion and volume loss on the right side. She was kept on vancomycin, Zosyn, and Levaquin and she continued to have high white count, which today is 20.9. Cardiology has been consulted as well and she has moderate to severe TR. Patient was on Xarelto, which has been kept on hold yesterday. Currently, she is on high flow nasal cannula with up to 12 liters of oxygen and not improving clinically. PAST MEDICAL HISTORY: CHF, hyperlipidemia, hypertension, pleural effusion, bladder cancer, hypothyroidism, spinal stenosis, valvular heart disease. PAST SURGICAL HISTORY: Hysterectomy. SOCIAL HISTORY: Nonalcoholic, nonsmoker. FAMILY HISTORY: Father had history of cancer, unknown. Mother with history of AL at the age of 66, . ALLERGIES: No known drug allergies. HOME MEDICATIONS: Reviewed. REVIEW OF SYSTEMS: Most of the pertinent positive has been included in HPI, rest cannot be obtained as the patient is not a good historian. PHYSICAL EXAMINATION: VITAL SIGNS: Current vitals include temperature 97.9, pulse rate 43, respiratory rate 22, blood pressure 107/50, oxygen saturation 93% on 15 liters oxygen. GENERAL: The patient is awake and alert, but not oriented x 3. HEENT: Atraumatic, normocephalic. PERRLA, EOMI. Currently on high flow oxygen through a nasal mask. RESPIRATORY: Air entry bilaterally equal. Coarse crackles at the bases. No wheezing noted at this time. CARDIOVASCULAR: No murmur. ABDOMEN: Soft, nontender, nondistended. Bowel sounds present. EXTREMITIES: No pedal edema. LABORATORY DATA AND IMAGING: Reviewed, mentioned in HPI. ASSESSMENT: [place], [place] REPORT OF CONSULTATION NAME: NEIL TUTTLE UNIT #: [id number] ROOM: 526 DOCTOR: AMANDA CAPUTO MD BIRTHDATE: [birth year] 1. Acute respiratory failure secondary to volume overload versus pneumonia. 2. The patient has moderate to severe tricuspid regurgitation. PLAN: At this time, she does have some low-grade fevers, volume loss and pleural effusion, more on one side compared to other, cannot be explained alone by CHF. She is on IV Lasix and continues to deteriorate, clinically now needing up to 15 liters of oxygen, although the family has refused for intubation, but for therapeutic purpose, she needs a therapeutic ____ can be arranged IR-guided. The patient is ____ off Xarelto since yesterday. Check CRP and procalcitonin. Continue with the current antibiotics. Check vancomycin trough level. Currently on vancomycin, Zosyn and Levaquin. We will follow the patient closely. Discussed with the primary attending, Dr. García. Thank you for your consult. Please call for any questions. Amanda Caputo MD CM:CONSTR:REPORT OF CONSULTATION 1037 03/13/19 0929 interface
--- NOTE | ~2019-03-08 | CON ---
[place], [place] REPORT OF CONSULTATION NAME: NEIL TUTTLE [facility] #: [id number] UNIT #: [id number] ROOM: 526 DOCTOR: ROBI WILSON MD BIRTHDATE: [birth year] DOS: 03/09/2019 PULMONARY CONSULTATION, EVALUATION AND MANAGEMENT CONSULTATION REQUESTED BY: Hospitalist service. REASON FOR CONSULTATION: For assessment of acute exacerbation of COPD. HISTORY OF PRESENT ILLNESS: This is an 88-year-old white female patient, [facility]. The patient has been presented and admitted to the hospital for further care. She has been reporting having increased symptoms of shortness of breath ongoing for the past few days. She has been noted somewhat poor historian. Denies symptoms of chest pain. The patient does have symptoms of some nonproductive cough. Denies symptoms of wheezing. Denies symptoms of fever or chills or any acute hemoptysis. She has a chest x-ray, which was noted abnormal. CT scan of chest was also done for further assessment, which was noted with significant abnormal findings. REVIEW OF SYSTEMS: Cannot be effectively completed. The past medical history, family, social, surgical history also is review of the medical record by the other physician's notes. PAST MEDICAL HISTORY: The patient noted with last hospitalization in this hospital in 10/2018 as I have assessed at this time with a past medical history of: 1. Failure to thrive. 2. Acute respiratory failure. 3. Alzheimer dementia. 4. History of bladder cancer. 5. Essential hypertension. 6. Atrial fibrillation, which is noted permanent. 7. Hypothyroidism. 8. Hypercholesterolemia. 9. Coronary artery disease. 10. Ambulatory dysfunction. PAST SURGICAL HISTORY: Unknown. FAMILY HISTORY: Unknown. SOCIAL HISTORY: The patient is currently , has 2 children. Denies any tobacco, alcohol or any illicit drugs. MEDICATIONS: Which have been administered were noted as Lipitor, Xarelto, Haldol, Exelon patches, trazodone, oxybutynin chloride, Imdur, Cardizem CD, vitamin D, Lasix, Namenda, fluoxetine, citalopram, levothyroxine, IV Zosyn, IV Levaquin, and other medications. DRUG ALLERGIES: Noted as no known drug allergies. [place], [place] REPORT OF CONSULTATION [id number] UNIT #: [id number] ROOM: 526 DOCTOR: TYLER MUNOZ MD,ROBI BIRTHDATE: [birth year] PHYSICAL EXAMINATION: GENERAL: This is an 88-year-old elderly female patient who has been lying in the bed, but there is no acute distress. Height of 5 feet 4 inches, weight 142 pounds, and BMI 24.3. VITAL SIGNS: Temperature recorded as normal temperature, respiratory rate 18-20, heart rate 119-96, blood pressure 142/68-120/54. Pulse oxygen saturation report on Venturi mask 95% on 4-5 L nasal cannula was noted as 91% saturation. HEENT: Examination shows age-related changes. Head was atraumatic. Eyes nonicterus. NECK: Supple. CARDIOVASCULAR: S1 and S2 audible. LUNGS: Noted significantly reduced breath sounds in the right side with scattered crackles as well. The left lung was noted clear. ABDOMEN: Flat, soft, nontender. EXTREMITIES: The patient was noted without any acute edema. Some bruising of the skin of the lower extremities was seen. LABORATORY DATA: BMP that was done on the 03/07/2019, BUN 26, creatinine was normal, glucose 101, CO2 of 33. CBC that was done yesterday reviewed as WBC count 11.0, hemoglobin 8.8, platelet count 198,000. CMP 03/07/2019, BUN 25, creatinine was normal. Potassium 3.3. Albumin 2.0. Total protein 5.7. Lactic acid yesterday noted 1.0. CBC that was done this morning: WBC count normal, hemoglobin 8.4, hematocrit 26.6, platelet count was normal. CMP done this morning, BUN normal, creatinine normal, potassium was 3.4. Urine culture preliminary no bacterial growth noted from yesterday. Review of the radiology data the CT scan chest that was done 03/08/2019 reviewed as well as previous some of the radiology data was reviewed. The chest x-ray that was done in 10/2018 admission was noted with evidence of bilateral pleural fluid, interstitial edema, finding of congestive heart failure. In 12/2018, CT scan of the abdomen and pelvis done that shows evidence of small to moderate pleural fluid bilaterally with area of compression atelectasis. The chest CT scan that was done on this admission was reviewed and it shows enlarging right pleural fluid noted with partial loculation, was also noted area of consolidation, infiltration noted in the lungs with significant ground glass opacities noted involving both lungs sparing some of the lung area. IMPRESSION: 1. The patient will be currently admitted to the hospital with progressive acute respiratory symptom and other noted normal CT scan of chest with current differential diagnosis would be considered chronic congestive heart failure, superimposed, acute congestive heart failure, preserved ejection fraction. Echocardiogram in 03/2018 was noted with normal left ventricular ejection fraction at that time. There were no other additional echocardiograms were available. Other differential would be considered as possibility of infection, such as pneumonia with gram-negative and gram-positive infection because of penitentiary residency. 2. History of significant dementia, which has been noted and advanced as well. 3. Overall severe debility as 88-year-old as well. 4. Possibility of a malignant process in the dorsal location versus [place], [place] REPORT OF CONSULTATION NAME: NEIL TUTTLE UNIT #: [id number] ROOM: 526 DOCTOR: ROBI WILSON MD BIRTHDATE: [birth year] drug-induced injury in lung and others would be considered. PLAN OF TREATMENT: At this time, was advised conservative management for this problem with her age. She has been already started on broad-spectrum intravenous antibiotic that will be continued. De-escalate antibiotics based on the culture results ____. Cardiology consultation will be beneficial to reassess cardiac disease and for heart failure. Titrate oxygen supplementation to maintain pulse ox 92% or greater. Continue other therapy, plan of management as in progress. Usual care with additional treatment changes will be made for this patient based on the progression of her illness. Thanks for allowing me to participate in the care of this patient. ROBI SCOTT MD CM:CONSTR:REPORT OF CONSULTATION 1306 03/10/19 0152 interface
--- NOTE | ~2019-03-08 | PR ---
[place], [place] PROGRESS NOTE [id number] UNIT #: [id number] ROOM: 526 DOCTOR: TYLER MUNOZ MD,ROBI BIRTHDATE: [birth year] DOS: 03/12/2019 SUBJECTIVE: The patient essentially remains the same. The patient still requires 100% oxygen supplementation and noted to be awake and alert, does follow vocal commands. Requires 1:1 observation. She was continued on the bronchodilators, antibiotics, and diuretics. REVIEW OF SYSTEMS: Could not be performed. OBJECTIVE: GENERAL: The patient this morning noted comfortable, noted awake. VITAL SIGNS: Normal temperature, respiratory rate 20, heart rate 43-85, blood pressure 107/50-127/62. Pulse oxygen saturation on 100% nonrebreather mask was 90%-93% saturation recorded. HEENT: Examination shows no new change. Head was atraumatic. NECK: Supple. CARDIOVASCULAR: S1, S2 audible. LUNGS: Bilaterally with decreased breath sounds with expiratory crackles. There were no wheezing. ABDOMEN: Soft, nontender. Bowel sounds present. EXTREMITIES: No new change. LABORATORY DATA: CBC: WBC count 20.9, hemoglobin 8.8, platelet count normal. BMP: BUN 40, creatinine 1.31. Potassium 3.1. IMPRESSION: Acute persistent respiratory failure, bilateral pulmonary infiltration was noted diffuse with differential of acute congestive heart failure, area of atelectasis, superimposed pneumonia all have been treated conservative at this time with current code status. PLAN OF MANAGEMENT: No changes in the plan of management. Prognosis of the patient remains poor at this time. Continue current plan of management. ROBI SCOTT MD CM:PNTRANS 1030 [id number] ROBI MUNOZ MD 03/12/19 1353 interface
--- NOTE | 2019-03-08 14:30 | NUR ---
PATIENT ASSISTED TO BEDSIDE COMMODE AT THIS TIME. UNABLE TO PROVIDE URINE SAMPLE.
[2019-03-08 16:04] LABS: BILIRUBIN NEGATIVE (NEGATIVE); BLOOD 1+ (NEGATIVE); CLARITY SL CLOUDY (CLEAR); COLOR YELLOW (YELLOW); GLUCOSE NEGATIVE (NEGATIVE); KETONE NEGATIVE (NEGATIVE); LEUKO ESTERASE NEGATIVE (NEGATIVE); NITRITE NEGATIVE (NEGATIVE); SPECIFIC GRAVITY 1.015 (1.005-1.030)
[2019-03-08 17:01] LABS: BACTERIA TRACE; WBC 0-2 wbc/hpf (0-5)
[2019-03-08 17:22] LABS: BASO % 0.1 % (0.0-1.0); EOS # 0.1 10*3/uL (0.0-0.4); EOS % 0.7 % (1.0-4.0); HEMATOCRIT 27.5 % (37.0-47.0); HEMOGLOBIN 8.8 g/dl (12.0-16.0); LYMPH # 1.3 10*3/uL (1.3-4.4); LYMPH % 11.7 % (27.0-41.0); MEAN CELL VOLUME 103.4 fl (81.0-99.0); MEAN CORPUSCULAR HGB 33.1 pg (27.0-31.0); MEAN PLATELET VOLUME 9.9 fl (9.6-12.3); MONO # 0.7 10*3/uL (0.1-1.0); MONO % 6.7 % (3.0-9.0); NEUT # 8.8 10*3/uL (2.3-7.9); NEUT % 80.2 % (47.0-73.0); PLATELET COUNT AUTOMATED 298 10*3/uL (130-400); RED BLOOD COUNT 2.66 10*6/uL (4.10-5.10); RED CELL DISTRI WIDTH 13.6 % (0-14.5)
[2019-03-08 17:42] LABS: ALKALINE PHOSPHATASE 168 U/L (45-117); BUN 25 mg/dl (7-24); CHLORIDE 102 mmol/L (98-107); CREATININE 0.63 mg/dL (0.55-1.02); POTASSIUM 3.3 mmol/L (3.5-5.1); SGOT/AST 31 IU/L (3-35); SGPT/ALT 32 U/L (12-78); SODIUM 140 mmol/L (136-145); TOTAL PROTEIN 5.7 gm/dL (6.4-8.2)
[2019-03-08] MEDS ORDERED: BUSPIRONE15 MG PO (19:58)
[2019-03-08] MEDS ORDERED: CELEXA10 MG PO (19:58)
--- NOTE | 2019-03-08 20:40 | NUR ---
A 88, admitted to 5E, under the services of GABY Valenzuela DO with a diagnosis of ANEMIA/PLEURAL EFFUSION/PNEUMONIA/FALL. Chief complaint is FALL. Patient arrived via stretcher from ER. Monitor applied. Initial assessment completed. Vital signs taken and recorded. GABY VALENZUELA DO notified of admission to the unit. Orders received. See assessment for past medical history, medications and allergies. Patient and/or family oriented to unit. visitation policy reviewed. Clothing/patient valuable form completed. BHAVYA QUIJANO A
[2019-03-08] MEDS ORDERED: TYLENOL EXTRA500 MG PO (23:30)
[2019-03-08] MEDS ORDERED: DULCOLAX10 M1 R (23:31)
[2019-03-08] MEDS ORDERED: OXYBUTYNIN5 MG PO (23:41)
[2019-03-09] VITALS: BP 142/68
[2019-03-09 06:27] LABS: BASO % 0.1 % (0.0-1.0); EOS % 0.2 % (1.0-4.0); HEMATOCRIT 26.6 % (37.0-47.0); HEMOGLOBIN 8.4 g/dl (12.0-16.0); LYMPH # 1.3 10*3/uL (1.3-4.4); LYMPH % 11.7 % (27.0-41.0); MEAN CELL VOLUME 103.9 fl (81.0-99.0); MEAN CORPUSCULAR HGB 32.8 pg (27.0-31.0); MEAN CORPUSCULAR HGB CONC 31.6 g/dl (33.0-37.0); MEAN PLATELET VOLUME 9.9 fl (9.6-12.3); MONO # 0.7 10*3/uL (0.1-1.0); MONO % 6.1 % (3.0-9.0); NEUT # 8.8 10*3/uL (2.3-7.9); NEUT % 81.4 % (47.0-73.0); PLATELET COUNT AUTOMATED 265 10*3/uL (130-400); RED BLOOD COUNT 2.56 10*6/uL (4.10-5.10); RED CELL DISTRI WIDTH 13.8 % (0-14.5); WHITE BLOOD COUNT 10.8 10*3/uL (4.8-10.8)
[2019-03-09 06:40] LABS: BUN 25 mg/dl (7-24); CHLORIDE 99 mmol/L (98-107); CREATININE 0.71 mg/dL (0.55-1.02); PHOSPHOROUS 3.4 mg/dL (2.5-4.9); POTASSIUM 3.4 mmol/L (3.5-5.1); SGOT/AST 28 IU/L (3-35); SGPT/ALT 30 U/L (12-78); SODIUM 140 mmol/L (136-145); TOTAL PROTEIN 5.6 gm/dL (6.4-8.2)
[2019-03-09 06:47] LABS: ALKALINE PHOSPHATASE 160 U/L (45-117)
--- NOTE | 2019-03-09 09:09 | NUR ---
Notified Dr. Head that patient was admitted through the evening. He sees the patient at [facility] would like patient transferred to his service. Patients current status, labs, diagnosis and meds were reviewed. See new orders.
[2019-03-09 12:00] VITALS: BP 134/97
--- NOTE | 2019-03-09 13:17 | NUR ---
PT IS HALF-WAY CARE AT [facility]. PER NURSING STAFF FAMILY DOES NOT WANT PT TO RETURN TO [facility]. NO FAMILY IN ROOM TO TALK TO AT THIS TIME. WILL ATTMEPT TO REACH THEM AND DISCUSS PLAN FOR DISCHARGE. WILL CONTINUE TO FOLLOW.
--- NOTE | 2019-03-09 13:30 | NUR ---
SPOKE WITH PT ANA IN LAW AND EXPLAINED TO HER SINCE PT IS MOONER CARE AT [facility] THAT SHE WOULD HAVE TO RETURN THERE AND THE SHE COULD REQUEST THAT PT BE MOVED TO ANOTHER FACILITY. SISTER IN LAW IS IN AGREEANCE WITH PLAN. SHE STATES SHE HAS A MEETING WITH THEM ON THE AND WILL BRING IT UP TO THEM THEN.
[2019-03-09 14:49] LABS: ACT PARTIAL THROMBO TIME 29.4 SECONDS (20.0-32.1); INTERNATIONAL NORM RATIO 1.3 (2.0-3.5)
--- NOTE | 2019-03-09 16:04 | NUR ---
Nursing screen received and chart reviewed. Patient was admitted from [facility] where she was Det[facility] stay with LOC and chest pain. At this time no OT indicated. Thank you. Chavo Shin OTR/l
[2019-03-09 20:00] VITALS: BP 126/75
--- NOTE | 2019-03-09 20:56 | NUR ---
DR RODRÍGUEZ NOTIFIED PT'S RESPERS AT 24 AND SPO2 88% ON 50% VENTURI
[2019-03-09 21:22] LABS: ABG BASE EXCESS 10.5 mmol/L (-2.0-2.0); ABG HCO3 34.4 mmol/l (22-26); ABG O2 SATURATION 91.3 % (95-97); ARTERIAL BLOOD GAS PCO2 42.4 mmHg (35-45); ARTERIAL BLOOD GAS PH 7.519 (7.35-7.45); ARTERIAL BLOOD GAS PO2 55.3 mmHg (80-90)
--- NOTE | 2019-03-09 22:36 | NUR ---
PT REQUESTING "SOMETHING FOR MY NERVES" AND "IM NERVOUS" DR RODRÍGUEZ STATES GIVE TRAZODONE NOW. PO TRAZODONE GIVEN, WILL MONITOR.
[2019-03-10] VITALS: BP 113/60
--- NOTE | 2019-03-10 01:12 | NUR ---
BEDSIDE COMMODE PROVIDED FOR PATIENT. PATIENT STARTED TO GET OOB AND DECIDED TO LAY BACK DOWN. WILL TRY AGAIN LATER.
[2019-03-10 06:04] LABS: BASO % 0.1 % (0.0-1.0); EOS % 0.1 % (1.0-4.0); HEMATOCRIT 26.1 % (37.0-47.0); HEMOGLOBIN 8.2 g/dl (12.0-16.0); LYMPH # 0.9 10*3/uL (1.3-4.4); LYMPH % 7.1 % (27.0-41.0); MEAN CORPUSCULAR HGB 32.7 pg (27.0-31.0); MEAN CORPUSCULAR HGB CONC 31.4 g/dl (33.0-37.0); MEAN PLATELET VOLUME 10.1 fl (9.6-12.3); MONO # 0.8 10*3/uL (0.1-1.0); MONO % 6.8 % (3.0-9.0); NEUT # 10.4 10*3/uL (2.3-7.9); NEUT % 85.2 % (47.0-73.0); PLATELET COUNT AUTOMATED 287 10*3/uL (130-400); RED BLOOD COUNT 2.51 10*6/uL (4.10-5.10); RED CELL DISTRI WIDTH 13.7 % (0-14.5); WHITE BLOOD COUNT 12.2 10*3/uL (4.8-10.8)
[2019-03-10 06:24] LABS: BUN 27 mg/dl (7-24); CHLORIDE 101 mmol/L (98-107); CREATININE 0.83 mg/dL (0.55-1.02); POTASSIUM 3.1 mmol/L (3.5-5.1); SODIUM 143 mmol/L (136-145)
--- NOTE | 2019-03-10 07:58 | NUR ---
Reviewed morning lab results with Dr. Morin. No new orders at this time.
[2019-03-10 08:00] VITALS: BP 125/68
--- NOTE | 2019-03-10 08:12 | NUR ---
PT WAS ON 12L HIGH FLOW CANNULA SPO2 82% PT PLACED ON 15L SPO2 87% PT PLACED ON NRB SPO2 UP TO 91%
--- NOTE | 2019-03-10 08:32 | NUR ---
Per request of family contacted physician for PRN medication for anxiety. See new orders.
--- NOTE | 2019-03-10 08:52 | NUR ---
PRN Ativan given for patient stating "I'm anxious!" Patient was anxious, fearful and not able to remain still for any period of time. Patient was in distress.
--- NOTE | 2019-03-10 09:05 | NUR ---
Patient visably calmed down and when asked if she was feeling better, she stated "yes." Will continue to monitor.
--- NOTE | 2019-03-10 10:04 | NUR ---
Message left with [facility] answering service regarding consult for CHF.
[2019-03-10 12:00] VITALS: BP 123/64
--- NOTE | 2019-03-10 14:25 | NUR ---
Patient woke up and stated "I have to go to the bathroom." Patient was assisted to BSC by two staff members. Patient was relaxed and compliant and cooperative with care. She was washed, given a clean gown and bed was changed. Per patiemt request she was returned to bed amd fell asleep.
[2019-03-10 16:00] VITALS: BP 107/45
--- NOTE | 2019-03-10 17:12 | NUR ---
Called left message with [facility] answering service to notify physician of recent lab level drawn. See labs. Awaiting response.
--- NOTE | 2019-03-10 17:20 | NUR ---
Patient up to use BSC. Refusing meals but does not refuse oral PO medications in applesauce.
[2019-03-10 20:00] VITALS: BP 123/53
--- NOTE | 2019-03-10 20:11 | NUR ---
PATIENT RESTING IN BED AT THIS TIME. RESPIRATIONS EASY, NON LABORED. OFFERED BSC BUT REFUSED. NO SIGNS OR SYMPTOMS OF DISTRESS NOTED AT THIS TIME.
--- NOTE | 2019-03-10 20:43 | NUR ---
Hep Lock discontinued. Site asymptomatic. Pressure applied. Sterile dressing applied. PEÑA HAMILTON
--- NOTE | 2019-03-10 20:44 | NUR ---
IV started right antecubital with #22 protective cath after 1 attempts. Site prepped with Chloroprep. Sterile dressing applied. Patient tolerated procedure well. PEÑA HAMILTON
--- NOTE | 2019-03-10 21:00 | NUR ---
PATIENTS NEVAUGHN CALLED TO CHECK ON THE PATIENT. DISCUSSED CURRENT STATUS AND PLAN OF CARE.
--- NOTE | 2019-03-10 23:29 | NUR ---
PATIENT TOSSING AND TURNING IN BED. APPEARED TO BE VERY SCARED/ANXIOUS. ATTEMPTED RELAXATION TECHNIQUES. PT REQUESTED "SOMETHING TO HELP ME SLEEP, I AM SO TIRED". MEDICATED WITH PRN ATIVAN. WILL CONTINUE TO MONITOR FOR EFFECTIVENESS. VOICES NO OTHER CONCERNS AT THIS TIME. LAYING IN BED. CALL LIGHT WITHIN REACH. BED ALARM ON. 1:1 STAFF MEMBER PRESENT.
[2019-03-11] VITALS: BP 117/70
--- NOTE | 2019-03-11 00:54 | NUR ---
ATIVAN EFFECTIVE. PATIENT RESTING IN BED. 1:1 STAFF MEMBER PRESENT. CALL LIGHT WITHIN REACH.
--- NOTE | 2019-03-11 02:13 | NUR ---
Patient sleeping with no c/o discomfort. Vital signs stable. No overt distress noted. HISSOM,PEÑA
--- NOTE | 2019-03-11 04:19 | NUR ---
24 HR chart check completed.
[2019-03-11 06:30] LABS: BUN 33 mg/dl (7-24); CHLORIDE 103 mmol/L (98-107); CREATININE 0.97 mg/dL (0.55-1.02); POTASSIUM 3.4 mmol/L (3.5-5.1); SODIUM 143 mmol/L (136-145)
[2019-03-11 06:40] LABS: BASO % 0.1 % (0.0-1.0); EOS % 0.1 % (1.0-4.0); HEMATOCRIT 26.7 % (37.0-47.0); HEMOGLOBIN 8.2 g/dl (12.0-16.0); LYMPH % 6.5 % (27.0-41.0); MEAN CELL VOLUME 106.4 fl (81.0-99.0); MEAN CORPUSCULAR HGB 32.7 pg (27.0-31.0); MEAN CORPUSCULAR HGB CONC 30.7 g/dl (33.0-37.0); MEAN PLATELET VOLUME 10.3 fl (9.6-12.3); MONO # 0.8 10*3/uL (0.1-1.0); MONO % 5.1 % (3.0-9.0); NEUT # 13.3 10*3/uL (2.3-7.9); NEUT % 87.7 % (47.0-73.0); PLATELET COUNT AUTOMATED 309 10*3/uL (130-400); RED BLOOD COUNT 2.51 10*6/uL (4.10-5.10); WHITE BLOOD COUNT 15.2 10*3/uL (4.8-10.8)
[2019-03-11 08:00] VITALS: BP 138/64
--- NOTE | 2019-03-11 08:17 | NUR ---
PT RESTING. RESP. RATE REMAINS ELEVATED AT 28 BPM. POX 87-90% ON 15 LITER NONREBREATHER. OTHER VITAL SIGNS REMAIN STABLE. LING FIEDLS DIMINISHED. MOIST,NONPRODUCTIVE COUGH NOTED. ABD. SOFT WITH ACTIVE BOWEL SOUNDS. PT SLEEPS FOR SHORT INTERVALS ONLY. WHEN PT AWAKENS SHE IS VERY ANXIOUS BUT WILL CALM QUICKLY WHEN SHE SEES SOMEONE IN THE ROOM WITH HER. PT DENIES PAIN WHEN SHE IS AWAKE. PT DID REQUEST BREAKFAST BUT ONLY ATE 1 GRAPE WHEN IT ARRIVED. PT ONLY WANTS TO LAY ON HER LEFT SIDE. SHE REFUSES TO TURN OR SIT UP. WHEN PLACED IN ANY OTHER POSITION PT BECOMES VERY ANXIOUS AND UPSET AND TURNS HERSELF BACK TO HER LEFT SIDE.
--- NOTE | 2019-03-11 11:04 | NUR ---
DR GOOD AND DR GAFFNEY IN TO SEE PT EARLIER. UPDATED THEM ON PT'S CONDITION. NEW ORDERS RECEIVED.
--- NOTE | 2019-03-11 11:16 | NUR ---
DR SCOTT IN TO SEE PT. UPDATED HIM ON PT'S CONDITION AND PLAN OF CARE.
[2019-03-11 12:00] VITALS: BP 134/88
--- NOTE | 2019-03-11 12:35 | NUR ---
PT CONTINUES TO REST FOR SHORT PDS THEN STARLTES AWAKE. PT DENIES PAIN OR NAUSEA.
--- NOTE | 2019-03-11 14:28 | NUR ---
CONSULT CALLED TO DR KINNEY'S ANSWERING SERVICE.
[2019-03-11 16:00] VITALS: BP 136/70
--- NOTE | 2019-03-11 16:01 | NUR ---
PT RESTING. PT REMAINS ON 15L NRM. POX 90%. PT REMAINS ANXIOUS WHEN AWAKE.
--- NOTE | 2019-03-11 17:05 | NUR ---
MEDICATED PT PER PRN ORDER WITH NORCO FOR C/O PAIN "ALL OVER". PT UNABLE TO RATE HER PAIN ON A PAIN SCALE AT THIS TIME.
--- NOTE | 2019-03-11 18:05 | NUR ---
DR KINNEY CALLED IN REGARDING PT. UPDATED HER ON PT'S CONDITION AND PLAN OF CARE. NO NEW ORDERS RECEIVED AT THIS TIME. SHE WILL SEE PT TOMORROW.
--- NOTE | 2019-03-11 18:07 | NUR ---
PT RESTING. EARLIER NORCO SEEMS EFFECTIVE FOR HER EARLIER PAIN.
[2019-03-11 20:00] VITALS: BP 115/77
--- NOTE | 2019-03-11 20:01 | NUR ---
Neurological: AWAKE, ALERT, ORIENTED TO PERSON Respiratory: NONLABORED, 15L O2 NONREBREATHER Breath sounds: RALES T/O Cough: NONE NOTED Cardiovascular: IRREGULAR: HX AFIB, DENIES CP/PRESSURE, NO EDEMA, PPP Gastrointestinal: HYPOACTIVE X4 QUADS, NO S/S OF DISTRESS, INC BOWEL Genito/Urinary: INC BLADDER Musculoskeketal: SKIN INTACT. AMBULATORY W/ WALKER PATIENT RESTING IN BED WITH NO S/S OF DISTRESS NOTED. BED IS LOW, LOCKED, ALARMED, AND CALL LIGHT IS WITHIN REACH. 1:1 SITTER AND FAMILY AT PATIENT BEDSIDE. WILL CONTINUE TO MONITOR. BHAVYA QUIJANO A
[2019-03-12] VITALS: BP 122/69
--- NOTE | 2019-03-12 06:02 | NUR ---
1:1 STAFF MEMBER WAS ASSISTING PATIENT ON TO BEDPAN, WHILE ASSISTING PATIENT ON TO BEDPAN PATIENT'S BODY WENT FLACCID AND LIPS TURNED BLUE. SITUATION WAS ASSESSED BY THIS RN AND RECENT SET OF VITAL SIGNS TAKEN AT THIS TIME. PULSE 85, RESPERS 12, BP 127/62, AND PULSE OX 90% ON 15L NC VIA NONREBREATHER. PATIENTS COGNITION RETURED TO BASELINE BEFORE PLACING CALL TO DR. FRANCISCO. CALL LIGHT IS WITHIN REACH, WILL CONTINUE TO OBSERVE.
[2019-03-12 06:10] VITALS: BP 127/62
--- NOTE | 2019-03-12 06:53 | NUR ---
1:1 STAFF MEMBER REPORTS ANOTHER EPISODE OF UNCONSICIOUSNESS WHILE CHANGING PATIENT. PATIENT IS AT BASELINE, PULSES ARE PALPABLE AND RESPERS ARE NONLABORED ON 15L NONREBREATHER. CALL LIGHT IS WITHIN REACH.
[2019-03-12 06:59] LABS: CREATININE 1.31 mg/dL (0.55-1.02); POTASSIUM 3.1 mmol/L (3.5-5.1)
[2019-03-12 07:32] LABS: HEMATOCRIT 29.3 % (37.0-47.0); HEMOGLOBIN 8.8 g/dl (12.0-16.0); MEAN CORPUSCULAR HGB 33.1 pg (27.0-31.0); MEAN PLATELET VOLUME 10.5 fl (9.6-12.3); PLATELET COUNT AUTOMATED 361 10*3/uL (130-400); RED BLOOD COUNT 2.66 10*6/uL (4.10-5.10); RED CELL DISTRI WIDTH 14.5 % (0-14.5); WHITE BLOOD COUNT 20.9 10*3/uL (4.8-10.8)
--- NOTE | 2019-03-12 07:35 | NUR ---
PT AWAKE. O2 15L VIA NON-REBREATHER. 1:[address] REPORT RECEIVED FROM BHAVYA WILSON.
[2019-03-12 07:41] LABS: MEAN CELL VOLUME 110.2 fl (81.0-99.0)
[2019-03-12 08:00] VITALS: BP 107/50
[2019-03-12 08:32] LABS: OVALOCYTES MODERATE; PLATELET SUFFICIENCY NORMAL (NORMAL); TOTAL CELLS COUNTED 100 #CELLS
--- NOTE | 2019-03-12 09:00 | NUR ---
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 -WIN Reddy
--- NOTE | 2019-03-12 09:52 | NUR ---
DR KINNEY IN TO SEE PT. ORDER TO OBTAIN CONSENT FROM FAMILY FOR IR TO DO THORACENTESIS. CALLED [facility] AND LEFT MESSAGE. WAITING DYE WEIGHER BACK
--- NOTE | 2019-03-12 11:15 | NUR ---
CALLED TO PTS ROOM. PT RESPS 4 PER MINUTE AND AGONAL. HR 20'S. BP 68/26. PT VERY DIAPHORETIC. UNABLE TO PALPATE PULSE. PT REMAINS ON O2 15L NON-REBREATHER. SUDDENLY PT RESPS INCREASED TO [address]. [address] MARVIN NOTIFIED. ORDER TO GIVE IV MORPHINE [address] MARVIN UP TO SEE PT. NO FURTHER ORDERS. ATTEMPTING TO REACH PTS FAMILY
--- NOTE | 2019-03-12 11:18 | NUR ---
SECOND ATTEMPT TO REACH PTS FAMILY FOR PROCEDURE CONSENT. LEFT ANOTHER MESSAGE
--- NOTE | 2019-03-12 11:54 | NUR ---
SPOKE TO DR MARVIN REGARDING PTS1:1ORDER. PT HAS DELCINED AND IS NOT ATTEMPTING TO REMOVE O2 ORDERFOR 1:1 CAN BE DISCONTINUED.
--- NOTE | 2019-03-12 12:55 | NUR ---
SPEECH PATHOLOGY Nursing screen complete. This dept. is available for consult should needs arise. LUANNE MIGUEL MSCCC-ADVICE CLERK
--- NOTE | 2019-03-12 13:10 | NUR ---
AFTER 2 RNS AUSCULTATED APICAL PULSE FOR 1 MINUTE WHILE PALPATING RADIAL AND CAROTID PULSES IT WAS VERIFIED THAT PT CEASED TO BREATHE AT 1310. DR MARVIN, SHIFT DIRECTOR, [facility], PTS FAMILY, AND ONE CALL NOTIFIED.
--- NOTE | 2019-03-12 14:48 | NUR ---
PT LEFT FLOOR VIA CART IN THE CARE OF [facility]
== END 2019-03-12 13:10 | disposition expired | DRG 291 ==
LOC: ED 12:50 → 5E 19:40 → EDHOLD 19:40 → 5E 20:10
PROVIDERS: Hospitalist; Physician Assistant; Student in an Organized Health Care Education/Training Program; ADMIT Family Medicine
DX: I11.0 Hypertensive heart disease with heart failure (principal); J18.9 Pneumonia, unspecified organism; J96.20 Acute and chronic respiratory failure, unspecified whether with hypoxia or hypercapnia; J98.11 Atelectasis; I50.23 Acute on chronic systolic (congestive) heart failure; D64.9 Anemia, unspecified; D72.829 Elevated white blood cell count, unspecified; Z66 Do not resuscitate; Z51.5 Encounter for palliative care; R74.8 Abnormal levels of other serum enzymes; G30.9 Alzheimer's disease, unspecified; F02.80 Dementia in other diseases classified elsewhere, unspecified severity, without behavioral disturbance, psychotic disturbance, mood disturbance, and anxiety; I48.20 Chronic atrial fibrillation, unspecified; I07.1 Rheumatic tricuspid insufficiency; E78.00 Pure hypercholesterolemia, unspecified; I25.10 Atherosclerotic heart disease of native coronary artery without angina pectoris; R00.0 Tachycardia, unspecified; E87.6 Hypokalemia; E78.5 Hyperlipidemia, unspecified; E03.9 Hypothyroidism, unspecified; F25.9 Schizoaffective disorder, unspecified; Z85.51 Personal history of malignant neoplasm of bladder; Z82.49 Family history of ischemic heart disease and other diseases of the circulatory system; Z90.710 Acquired absence of both cervix and uterus; Z80.8 Family history of malignant neoplasm of other organs or systems; Z79.899 Other long term (current) drug therapy